=== PATIENT | male | born 1940 | race Caucasian/White ===

== ENCOUNTER 2017-06-13 23:39 | Inpatient (IN) | payer OTHER, MEDICARE ==
[~2017-06-13] VITALS: Ht 193 cm; Wt 123.0 kg
[2017-06-13] MEDS ORDERED: BUDE10.2 (23:56)
[2017-06-13] MEDS ORDERED: IPRA4AER (23:56)
[2017-06-13] MEDS ORDERED: OMEP20CA4 (23:56)
[2017-06-14] LABS: BASOPHILS % (AUTO) 0.4 % (0-1); EOSINOPHILS # (AUTO) 0.2 X10'3 (0-0.9); EOSINOPHILS % (AUTO) 2.2 % (0-6); HEMATOCRIT 40.9 % (42.0-52.0); HEMOGLOBIN 13.9 g/dl (14.0-17.9); LYMPHOCYTES # (AUTO) 1.9 X10'3 (1.1-4.8); LYMPHOCYTES % (AUTO) 21.2 % (21-51); MEAN CORPUSCULAR HEMOGLOBIN 31.4 PG (27.0-31.0); MEAN CORPUSCULAR HGB CONC 33.9 % (33.0-36.5); MEAN CORPUSCULAR VOLUME 92.6 FL (78-98); MEAN PLATELET VOLUME 6.6 FL (7.4-10.4); MONOCYTES # (AUTO) 0.4 X10'3 (0-0.9); MONOCYTES % (AUTO) 4.6 % (2-12); NEUTROPHILS # (AUTO) 6.5 X10'3 (1.8-7.7); NEUTROPHILS % (AUTO) 71.6 % (42-75); PLATELET COUNT 265 X10'3 (140-440); RED BLOOD COUNT 4.42 X10'6 (4.70-6.10); RED CELL DISTRIBUTION WIDTH 15.6 % (11.5-14.5); WHITE BLOOD COUNT 9.1 X10'3 (4.5-11.0)
[2017-06-14 00:24] LABS: ALANINE AMINOTRANSFERASE 21 U/L (12-78); ALBUMIN 3.5 G/DL (3.4-5.0); ALBUMIN/GLOBULIN RATIO 0.8 (1.1-1.5); ALKALINE PHOSPHATASE 90 IU/L (46-116); ANION GAP 12 (8-16); ASPARTATE AMINO TRANSFERASE 18 U/L (10-37); BILIRUBIN,TOTAL 0.5 MG/DL (0.1-1.0); BLOOD UREA NITROGEN 11 MG/DL (7-18); BUN/CREATININE RATIO 9.3 (5.4-32.0); CALCIUM 9.3 MG/DL (8.5-10.1); CHLORIDE 103 MMOL/L (99-107); CREATININE 1.18 MG/DL (0.60-1.10); GLUCOSE 140 MG/DL (70-104); POTASSIUM 4.1 MMOL/L (3.5-5.1); SODIUM 141 MMOL/L (135-145); TOTAL CARBON DIOXIDE 26.3 MMOL/L (24-32); eGFR 60 ML/MIN
[2017-06-14 00:29] LABS: D-DIMER 1.16 MG/L FEU (0-0.50); PARTIAL THROMBOPLASTIN TIME 28 SECONDS (22-32); PROTHROMBIN TIME 10.8 SECONDS (9.0-12.0)
[2017-06-14] MEDS ORDERED: iohexol 350MG/ML 100ml bottle IV ONE (00:57)
[2017-06-14] MEDS ORDERED: furosemide 10 MG/1 ML 10ml inj IV ONE (02:20)
[2017-06-14] MEDS ORDERED: acetaminophen 325mg tablet PO PRN ×2 (03:40)
[2017-06-14] MEDS ORDERED: HYDROcodone/acetaminophen 5mg/325mg tablet PO PRN (03:40)
[2017-06-14] MEDS ORDERED: ondansetron/PF 4mg/2ml inj IV PRN (03:40)
[2017-06-14 04:29] LABS: HEMOGLOBIN A1C 6.1 % (4.5-6.2)
[2017-06-14] MEDS: enoxaparin 60mg/0.6ml syringe SUBCUT SCH ×2 (04:56→20:01)
[2017-06-14] MEDS: pantoprazole 40mg Tablet.DR PO SCH (08:54)
[2017-06-14] MEDS: aspirin 81mg tablet.DR PO SCH (09:16)
[2017-06-14] MEDS: lisinopril 10 MG tablet PO SCH (09:17)
[2017-06-14] MEDS: atorvastatin 20mg tablet PO SCH (09:17)
[2017-06-14] MEDS: furosemide 10 MG/1 ML 10ml inj IV SCH (09:22)
[2017-06-14 15:59] VITALS: BP 131/76
[2017-06-14 18:00] VITALS: BP 152/89
[2017-06-14] MEDS: albuterol 2.5 MG/3 ML nebule NEB PRN (20:00)
[2017-06-14] MEDS ORDERED: furosemide 40mg/4ml inj IV ONE (22:35)
[2017-06-14 23:00] VITALS: BP 158/94
[2017-06-15 06:00] VITALS: BP 139/81
[2017-06-15 06:38] LABS: BASOPHILS % (AUTO) 0.3 % (0-1); EOSINOPHILS # (AUTO) 0.2 X10'3 (0-0.9); EOSINOPHILS % (AUTO) 1.8 % (0-6); HEMATOCRIT 42.6 % (42.0-52.0); HEMOGLOBIN 14.4 g/dl (14.0-17.9); LYMPHOCYTES % (AUTO) 9.4 % (21-51); MEAN CORPUSCULAR HEMOGLOBIN 31.1 PG (27.0-31.0); MEAN CORPUSCULAR HGB CONC 33.8 % (33.0-36.5); MEAN CORPUSCULAR VOLUME 91.9 FL (78-98); MONOCYTES # (AUTO) 0.7 X10'3 (0-0.9); MONOCYTES % (AUTO) 6.4 % (2-12); NEUTROPHILS % (AUTO) 82.1 % (42-75); PLATELET COUNT 288 X10'3 (140-440); RED BLOOD COUNT 4.64 X10'6 (4.70-6.10)
[2017-06-15 06:58] LABS: ALBUMIN 3.7 G/DL (3.4-5.0); ANION GAP 10 (8-16); BLOOD UREA NITROGEN 14 MG/DL (7-18); BUN/CREATININE RATIO 12.1 (5.4-32.0); CALCIUM 9.4 MG/DL (8.5-10.1); CHLORIDE 97 MMOL/L (99-107); CHOL/HDL RATIO 2.8 (0.00-4.99); CHOLESTEROL 155 MG/DL (0-200); CREATININE 1.16 MG/DL (0.60-1.10); GLUCOSE 133 MG/DL (70-104); HDL CHOLESTEROL 55 MG/DL (35-60); LDL CHOLESTEROL 82 MG/DL (50-100); POTASSIUM 4.1 MMOL/L (3.5-5.1); SODIUM 139 MMOL/L (135-145); TOTAL CARBON DIOXIDE 32.1 MMOL/L (24-32); TRIGLYCERIDES 81 MG/DL (20-135); eGFR 61 ML/MIN
[2017-06-15] MEDS: pantoprazole 40mg Tablet.DR PO SCH (07:53)
[2017-06-15] MEDS: lisinopril 10 MG tablet PO SCH (07:54)
[2017-06-15] MEDS: enoxaparin 60mg/0.6ml syringe SUBCUT SCH ×2 (07:54→20:12)
[2017-06-15] MEDS: aspirin 81mg tablet.DR PO SCH (07:54)
[2017-06-15] MEDS: atorvastatin 20mg tablet PO SCH (07:54)
[2017-06-15] MEDS: furosemide 10 MG/1 ML 10ml inj IV SCH (07:54)
[2017-06-15 10:00] VITALS: BP 105/66
[2017-06-15] MEDS ORDERED: lisinopril 5mg tablet PO SCH (13:40)
[2017-06-15] MEDS ORDERED: furosemide 20 MG/2 ML vial IV SCH (13:40)
[2017-06-15] MEDS ORDERED: levoFLOXACIN 500mg tablet PO ONE (14:10)
[2017-06-15] MEDS: metoprolol tartrate 12.5mg (1/2 tablet) PO SCH ×2 (15:19→20:00)
[2017-06-15 18:00] VITALS: BP 107/63
[2017-06-15] MEDS: albuterol 2.5 MG/3 ML nebule NEB PRN (19:51)
[2017-06-15 20:18] VITALS: BP 100/50
[2017-06-15 22:00] VITALS: BP 111/56
[2017-06-16 05:30] LABS: BASOPHILS % (AUTO) 0.4 % (0-1); EOSINOPHILS # (AUTO) 0.3 X10'3 (0-0.9); EOSINOPHILS % (AUTO) 3.7 % (0-6); HEMATOCRIT 39.7 % (42.0-52.0); HEMOGLOBIN 13.6 g/dl (14.0-17.9); LYMPHOCYTES # (AUTO) 1.7 X10'3 (1.1-4.8); LYMPHOCYTES % (AUTO) 23.3 % (21-51); MEAN CORPUSCULAR HEMOGLOBIN 31.2 PG (27.0-31.0); MEAN CORPUSCULAR HGB CONC 34.1 % (33.0-36.5); MEAN CORPUSCULAR VOLUME 91.3 FL (78-98); MONOCYTES # (AUTO) 0.6 X10'3 (0-0.9); MONOCYTES % (AUTO) 7.9 % (2-12); NEUTROPHILS # (AUTO) 4.7 X10'3 (1.8-7.7); NEUTROPHILS % (AUTO) 64.7 % (42-75); PLATELET COUNT 261 X10'3 (140-440); RED BLOOD COUNT 4.35 X10'6 (4.70-6.10); RED CELL DISTRIBUTION WIDTH 15.4 % (11.5-14.5); WHITE BLOOD COUNT 7.3 X10'3 (4.5-11.0)
[2017-06-16 05:57] LABS: ALBUMIN 3.2 G/DL (3.4-5.0); ANION GAP 11 (8-16); BLOOD UREA NITROGEN 21 MG/DL (7-18); BUN/CREATININE RATIO 18.3 (5.4-32.0); CALCIUM 9.5 MG/DL (8.5-10.1); CHLORIDE 98 MMOL/L (99-107); CREATININE 1.15 MG/DL (0.60-1.10); GLUCOSE 121 MG/DL (70-104); POTASSIUM 3.6 MMOL/L (3.5-5.1); SODIUM 138 MMOL/L (135-145); TOTAL CARBON DIOXIDE 29.2 MMOL/L (24-32); eGFR 62 ML/MIN
[2017-06-16 06:00] VITALS: BP 130/60
[2017-06-16] MEDS ORDERED: fluticasone/vilanterol 200mcg/25mcg inhaler IH SCH (08:00)
[2017-06-16] MEDS: furosemide 10 MG/1 ML 10ml inj IV SCH (08:24)
[2017-06-16] MEDS: metoprolol tartrate 12.5mg (1/2 tablet) PO SCH (08:24)
[2017-06-16] MEDS: pantoprazole 40mg Tablet.DR PO SCH (08:24)
[2017-06-16] MEDS: atorvastatin 20mg tablet PO SCH (08:24)
[2017-06-16] MEDS: aspirin 81mg tablet.DR PO SCH (08:25)
[2017-06-16] MEDS: lisinopril 10 MG tablet PO SCH (08:25)
[2017-06-16] MEDS: enoxaparin 60mg/0.6ml syringe SUBCUT SCH (08:25)
[2017-06-16 10:00] VITALS: BP 99/53
[2017-06-16] MEDS ORDERED: LISI10TA4 PO (10:25)
[2017-06-16] MEDS ORDERED: ATOR20TA66 PO (10:25)
[2017-06-16] MEDS ORDERED: ASPI-1071 PO (10:25)
[2017-06-16] MEDS ORDERED: POTA10CA44 PO (10:25)
[2017-06-16] MEDS ORDERED: FURO40TA4 PO (10:25)
[2017-06-16] MEDS ORDERED: METO25TA6 PO (10:25)
== END 2017-06-16 11:15 | disposition home health service (06) | DRG 292 ==
LOC: ER 23:39 → ED HOLD 06-14 03:37 → ORTHO 4S 06-14 15:42
PROVIDERS: ADMIT Family Medicine; ATTEND Family Medicine
PROC: B32T1ZZ Computerized Tomography (CT Scan) of Left Pulmonary Artery using Low Osmolar Contrast (ICD-10-PCS; principal; 2017-06-14)
PROC: B3201ZZ Computerized Tomography (CT Scan) of Thoracic Aorta using Low Osmolar Contrast (ICD-10-PCS; 2017-06-14)
PROC: B32S1ZZ Computerized Tomography (CT Scan) of Right Pulmonary Artery using Low Osmolar Contrast (ICD-10-PCS; 2017-06-14)
DX: I11.0 Hypertensive heart disease with heart failure (principal); I45.2 Bifascicular block; I27.81 Cor pulmonale (chronic); I08.1 Rheumatic disorders of both mitral and tricuspid valves; I50.33 Acute on chronic diastolic (congestive) heart failure; J44.9 Chronic obstructive pulmonary disease, unspecified; E78.5 Hyperlipidemia, unspecified; I25.10 Atherosclerotic heart disease of native coronary artery without angina pectoris; K21.9 Gastro-esophageal reflux disease without esophagitis; L60.2 Onychogryphosis; F17.200 Nicotine dependence, unspecified, uncomplicated; Z79.51 Long term (current) use of inhaled steroids; Z79.899 Other long term (current) drug therapy; Z95.1 Presence of aortocoronary bypass graft
CPT/HCPCS: 36415; 71045; 71275; 80048; 80053; 80061; 83036; 83880; 84484; 85025; 85379; 85610; 85730; 87070; 93306; 93922; 94640; 94760; 96374; 99285; J1650; J1940; Q9967

== ENCOUNTER 2018-05-31 01:14 | Inpatient (IN) | payer MEDICARE, OTHER ==
[~2018-05-31] VITALS: Ht 193 cm; Wt 113.6 kg
[~2018-05-31 01:14] MED LIST: ASPI-1071 PO; ATOR20TA66 PO; BUDE10.2 PO; FURO40TA4 PO; IPRA4AER PO; LISI10TA4 PO; METO25TA6 PO; OMEP20CA4 PO
[2018-05-31] MEDS ORDERED: methylPREDNISolone sod succ 125mg/2ml vial IV ONE (01:50)
[2018-05-31] MEDS ORDERED: levoFLOXACIN-Levaquin 750MG/D5 150 ML IV ONE (01:50)
[2018-05-31] MEDS ORDERED: ipratropium/albuterol 3ml nebule NEB ONE (01:50)
[2018-05-31] MEDS ORDERED: furosemide 40mg/4ml inj IV ONE (01:50)
[2018-05-31 02:06] LABS: ABG BASE EXCESS -1.9 mmol/L (-2.0-3.0); ABG HCO3 19.5 mmol/L (22.0-26.0); ABG PCO2 (T) 27.1 mmHg (35.0-48.0); ABG PO2 (T) 97.9 mmHg (83-108); ALLEN'S TEST Positive; FCOHb 0.7 % (0.5-1.5); FO2Hb 96.3 % (94-100); PATIENT TEMPERATURE 38.3; RESPIRATORY RATE 16 b/min; RESPIRATORY RATE (OBSERVED) 40 b/min; TOTAL HEMOGLOBIN 14.8 G/dl (14.0-18.0)
[2018-05-31 02:19] LABS: BASOPHILS % (AUTO) 0.2 % (0-1); EOSINOPHILS % (AUTO) 0 % (0-6); HEMATOCRIT 42.1 % (42.0-52.0); HEMOGLOBIN 14.1 g/dl (14.0-17.9); LYMPHOCYTES # (AUTO) 0.5 X10'3 (1.1-4.8); LYMPHOCYTES % (AUTO) 3.2 % (21-51); MEAN CORPUSCULAR HEMOGLOBIN 31.8 PG (27.0-31.0); MEAN CORPUSCULAR HGB CONC 33.6 g/dL (33.0-36.5); MEAN CORPUSCULAR VOLUME 94.7 FL (78-98); MEAN PLATELET VOLUME 7.3 FL (7.4-10.4); MONOCYTES # (AUTO) 1.1 X10'3 (0-0.9); MONOCYTES % (AUTO) 6.2 % (2-12); NEUTROPHILS # (AUTO) 15.7 X10'3 (1.8-7.7); NEUTROPHILS % (AUTO) 90.4 % (42-75); PLATELET COUNT 261 X10'3 (140-440); RED BLOOD COUNT 4.45 X10'6 (4.70-6.10); RED CELL DISTRIBUTION WIDTH 14.2 % (11.5-14.5); WHITE BLOOD COUNT 17.3 X10'3 (4.5-11.0)
[2018-05-31 02:28] LABS: ALANINE AMINOTRANSFERASE 29 U/L (12-78); ALBUMIN 2.6 G/DL (3.4-5.0); ALBUMIN/GLOBULIN RATIO 0.5 (1.1-1.5); ALKALINE PHOSPHATASE 211 IU/L (46-116); ANION GAP 16 (8-16); ASPARTATE AMINO TRANSFERASE 40 U/L (10-37); BILIRUBIN,TOTAL 1.1 MG/DL (0.1-1.0); BLOOD UREA NITROGEN 18 MG/DL (7-18); BUN/CREATININE RATIO 12.9 (5.4-32.0); CALCIUM 9.5 MG/DL (8.5-10.1); CHLORIDE 92 MMOL/L (99-107); GLUCOSE 145 MG/DL (70-104); INR 1.1 INR; PARTIAL THROMBOPLASTIN TIME 33 SECONDS (22-32); POTASSIUM 3.6 MMOL/L (3.5-5.1); SODIUM 129 MMOL/L (135-145); TOTAL CARBON DIOXIDE 20.8 MMOL/L (24-32); TOTAL PROTEIN 8.2 G/DL (6.4-8.2); eGFR 49 ML/MIN
[2018-05-31 02:36] LABS: MAGNESIUM 1.9 MG/DL (1.5-2.4)
[2018-05-31] MEDS ORDERED: aspirin 325mg tablet PO ONE (02:40)
[2018-05-31 02:46] LABS: TOTAL CELLS COUNTED 100
[2018-05-31 02:47] LABS: PLATELET ESTIMATE NORMAL
[2018-05-31 02:48] LABS: TOXIC GRANULATION 1+
[2018-05-31] MEDS ORDERED: mag hydrox/Alum hydrox/simeth 30ml oral suspension PO PRN (02:50)
[2018-05-31] MEDS ORDERED: potassium Cl 20 mEq SR tablet PO PRN (02:50)
[2018-05-31] MEDS ORDERED: magnesium hydroxide 30ml (MOM) UD suspension PO PRN (02:50)
[2018-05-31] MEDS ORDERED: acetaminophen 325mg tablet PO PRN ×2 (02:50)
[2018-05-31] MEDS ORDERED: magnesium Cl slow-release 64mg tablet PO PRN (02:50)
[2018-05-31] MEDS ORDERED: ondansetron/PF 4mg/2ml inj IV PRN (02:50)
[2018-05-31] MEDS ORDERED: magnesium 2GM in 50ml NS 50 ML IV PRN (02:50)
[2018-05-31] MEDS ORDERED: magnesium 4gm in 100ml NS 100 ML IV PRN (02:50)
[2018-05-31] MEDS ORDERED: potassium Cl 40MEQ/NS 500ml 500 ML IV PRN ×2 (02:50)
[2018-05-31] MEDS ORDERED: ipratropium/albuterol 3ml nebule NEB PRN (02:55)
[2018-05-31] MEDS: ipratropium/albuterol 3ml nebule NEB SCH ×6 (03:32→23:09)
[2018-05-31 05:39] LABS: GLUCOSE, URINE NEGATIVE (Neg); KETONES,URINE 15 mg/dl (Neg); LEUKOCYTE ESTERASE ,URINE NEGATIVE (Neg); NITRITES, URINE NEGATIVE (Neg); OCCULT BLOOD,URINE MODERATE (Neg); PH,URINE 5.5 (4.8-8.0); PROTEIN,URINE 30 mg/dl (Neg)
[2018-05-31 05:44] LABS: CLARITY,URINE SLIGHTLY CLOUDY (Clear); COLOR,URINE STRAW (Yellow); UA COLLECTION TYPE CLN CATCH MIDSTREAM
--- NOTE | 2018-05-31 05:50 | NUR ---
PT SLEEPING, NO C/O
[2018-05-31 05:51] LABS: BACTERIA,URINE NONE SEEN /HPF (Neg); MUCUS STRANDS NONE SEEN /LPF (Neg); SQUAMOUS EPITHELIAL CELL,UR NONE SEEN /LPF (FEW); TRANSITIONAL EPI CELLS,URINE FEW /HPF; WBC,URINE 0-4 /HPF (0-4)
--- NOTE | 2018-05-31 06:51 | NUR ---
Patient alert and oriented. Patient changed into a hospital gound and skin care was given. Bipap was adujsted and patient given drink of water.
[2018-05-31] MEDS: K and/or MAG REPLACEMENT MC SCH (08:00)
[2018-05-31] MEDS ORDERED: enoxaparin 40mg/0.4ml syringe SQ SCH (08:00)
[2018-05-31] MEDS: furosemide 10 MG/1 ML 10ml inj IV SCH ×2 (09:36→20:27)
[2018-05-31] MEDS: methylPREDNISolone sod succ/PF 40mg inj. IV SCH ×3 (09:36→23:41)
[2018-05-31] MEDS: lactobacillus rhamnosus 10,000 MMU CELLS/CAPSULE PO SCH ×2 (09:37→20:27)
[2018-05-31] MEDS: heparin, porcine 5000 units/ml vial SQ SCH ×3 (09:38→23:42)
--- NOTE | 2018-05-31 10:20 | NUR ---
Dr. Easton down to see pa Addendum: 05/31/18 at [address] Easton here to see patient and asked to take patient off bipap and due a trial of NC. Patient was removed from bipap and placed on 3L nc. Patient is holding his saturation at 94%. Patient eating breakfast.
--- NOTE | 2018-05-31 11:17 | NUR ---
pt was off bipap and placed on 3l nc while eating. pt breathing was labored, pt placed back on bipap.
[2018-05-31] MEDS ORDERED: POTA10TA15 PO (13:17)
[2018-05-31] MEDS ORDERED: FURO40TA4 PO (13:17)
[2018-05-31] MEDS ORDERED: ROSU40TA PO (13:17)
[2018-05-31] MEDS ORDERED: METO-411 PO (13:17)
[2018-05-31] MEDS ORDERED: LISI1TAB11 PO (13:17)
[2018-05-31] MEDS ORDERED: ASPI-611 PO (13:17)
--- NOTE | 2018-05-31 16:40 | NUR ---
Assumed patient care
[2018-05-31 17:00] VITALS: BP 156/74
[2018-05-31 18:18] VITALS: BP 139/73
[2018-06-01] MEDS ORDERED: levoFLOXACIN-Levaquin 750MG/D5 150 ML IV SCH (02:00)
[2018-06-01] MEDS: ipratropium/albuterol 3ml nebule NEB SCH ×6 (03:10→23:36)
[2018-06-01 06:00] VITALS: BP 138/72
[2018-06-01 06:17] LABS: ALBUMIN 2.5 G/DL (3.4-5.0); ANION GAP 14 (8-16); BLOOD UREA NITROGEN 36 MG/DL (7-18); CALCIUM 10.1 MG/DL (8.5-10.1); CHLORIDE 93 MMOL/L (99-107); CREATININE 1.89 MG/DL (0.60-1.10); GLUCOSE 269 MG/DL (70-104); MAGNESIUM 2.4 MG/DL (1.5-2.4); POTASSIUM 3.1 MMOL/L (3.5-5.1); SODIUM 132 MMOL/L (135-145); TOTAL CARBON DIOXIDE 25.2 MMOL/L (24-32); eGFR 35 ML/MIN
[2018-06-01 06:18] LABS: MEAN CORPUSCULAR HGB CONC 33.8 g/dL (33.0-36.5)
[2018-06-01 06:19] LABS: HEMATOCRIT 41.6 % (42.0-52.0); HEMOGLOBIN 14.1 g/dl (14.0-17.9); MEAN CORPUSCULAR HEMOGLOBIN 31.7 PG (27.0-31.0); MEAN CORPUSCULAR VOLUME 93.7 FL (78-98); MEAN PLATELET VOLUME 7.4 FL (7.4-10.4); PLATELET COUNT 290 X10'3 (140-440); RED BLOOD COUNT 4.44 X10'6 (4.70-6.10); RED CELL DISTRIBUTION WIDTH 13.9 % (11.5-14.5); WHITE BLOOD COUNT 19.8 X10'3 (4.5-11.0)
--- NOTE | 2018-06-01 07:01 | NUR ---
Patient in room PCU 3015. I have received report from Erika HOUSE and had the opportunity to ask questions and assume patient care.
[2018-06-01 07:23] LABS: TOTAL CELLS COUNTED 100
[2018-06-01 07:24] LABS: PLATELET ESTIMATE NORMAL; TOXIC GRANULATION 2+; TOXIC VACUOLATION FEW
[2018-06-01] MEDS ORDERED: non-formulary drug (Budesonide/Formoterol Fumarate (Symbicort 160-4.5 Mcg Inhaler) 2 PUFFS PO SCH (08:00)
[2018-06-01] MEDS: K and/or MAG REPLACEMENT MC SCH (08:00)
[2018-06-01] MEDS: budesonide 0.5mg/2ml UD nebule IH SCH ×2 (08:28→19:28)
[2018-06-01] MEDS: potassium chloride 10mEq ER tablet PO SCH (08:59)
[2018-06-01] MEDS: atorvastatin 20mg tablet PO SCH (08:59)
[2018-06-01] MEDS: potassium Cl 20 mEq SR tablet PO PRN ×3 (08:59→20:05)
[2018-06-01] MEDS: HYDROchlorothiazide 12.5mg capsule PO SCH (09:00)
[2018-06-01] MEDS: aspirin 81mg tab.chew PO SCH (09:00)
[2018-06-01] MEDS: lisinopril 20mg tablet PO SCH (09:01)
[2018-06-01] MEDS: lactobacillus rhamnosus 10,000 MMU CELLS/CAPSULE PO SCH ×2 (09:01→20:05)
[2018-06-01] MEDS: furosemide 10 MG/1 ML 10ml inj IV SCH ×2 (09:02→20:05)
[2018-06-01] MEDS: methylPREDNISolone sod succ/PF 40mg inj. IV SCH ×3 (09:02→23:37)
[2018-06-01] MEDS: metoprolol succinate 25mg (24-HOUR) SR. Tablet PO SCH (09:02)
[2018-06-01] MEDS: heparin, porcine 5000 units/ml vial SQ SCH ×3 (09:03→23:38)
[2018-06-01] MEDS: pantoprazole 40mg Tablet.DR PO SCH (09:13)
[2018-06-01 11:00] VITALS: BP 133/67
[2018-06-01] MEDS ORDERED: ipratropium/albuterol 3ml nebule IH SCH (11:00)
[2018-06-01] MEDS ORDERED: albuterol 2.5 MG/3 ML nebule NEB SCH (11:00)
--- NOTE | 2018-06-01 18:27 | NUR ---
Patient in room PCU 3015. I have received report from Elier HOUSE and had the opportunity to ask questions and assume patient care.
--- NOTE | 2018-06-01 18:27 | NUR ---
Problems reprioritized. Patient report given, questions answered & plan of care reviewed with Maggie HOUSE.
[2018-06-01 18:49] VITALS: BP 122/70
[2018-06-01 19:00] VITALS: BP 117/54
[2018-06-01 22:00] VITALS: BP 139/73
[2018-06-02] VITALS (7 sets, daily range): BP systolic 111–153; BP diastolic 51–73
[2018-06-02] MEDS: ipratropium/albuterol 3ml nebule NEB SCH ×6 (02:42→23:25)
--- NOTE | 2018-06-02 02:56 | NUR ---
PAGER ID: [phone] MESSAGE: [id number] Saud 78. 3/ COPD, SOB. 7 beat run of Vtach. 116/58, rate 87, 92% on 1.5L. denies symptoms. Maggie HOUSE 3085 RT in the room prior giving pt breathing treatment. no signs of distress. pt says he feels good and denies any symptoms. will continue to monitor.
--- NOTE | 2018-06-02 06:00 | NUR ---
Problems reprioritized. Patient report given, questions answered & plan of care reviewed with Rosana HOUSE.
--- NOTE | 2018-06-02 06:15 | NUR ---
Problems reprioritized. Patient report given, questions answered & plan of care reviewed with Nadia HOUSE.
[2018-06-02 06:20] LABS: BASOPHILS % (AUTO) 0.2 % (0-1); EOSINOPHILS % (AUTO) 0 % (0-6); HEMATOCRIT 38.2 % (42.0-52.0); HEMOGLOBIN 12.8 g/dl (14.0-17.9); LYMPHOCYTES # (AUTO) 0.8 X10'3 (1.1-4.8); LYMPHOCYTES % (AUTO) 4.5 % (21-51); MEAN CORPUSCULAR HEMOGLOBIN 31.5 PG (27.0-31.0); MEAN CORPUSCULAR HGB CONC 33.6 g/dL (33.0-36.5); MEAN CORPUSCULAR VOLUME 93.8 FL (78-98); MEAN PLATELET VOLUME 7.7 FL (7.4-10.4); MONOCYTES # (AUTO) 0.9 X10'3 (0-0.9); NEUTROPHILS # (AUTO) 15.7 X10'3 (1.8-7.7); NEUTROPHILS % (AUTO) 90.3 % (42-75); PLATELET COUNT 283 X10'3 (140-440); RED BLOOD COUNT 4.07 X10'6 (4.70-6.10); WHITE BLOOD COUNT 17.4 X10'3 (4.5-11.0)
[2018-06-02 06:27] LABS: ALBUMIN 2.3 G/DL (3.4-5.0); ANION GAP 10 (8-16); BLOOD UREA NITROGEN 45 MG/DL (7-18); BUN/CREATININE RATIO 25.4 (5.4-32.0); CALCIUM 9.2 MG/DL (8.5-10.1); CHLORIDE 95 MMOL/L (99-107); CREATININE 1.77 MG/DL (0.60-1.10); GLUCOSE 230 MG/DL (70-104); MAGNESIUM 2.3 MG/DL (1.5-2.4); POTASSIUM 3.5 MMOL/L (3.5-5.1); SODIUM 133 MMOL/L (135-145); TOTAL CARBON DIOXIDE 27.6 MMOL/L (24-32); eGFR 38 ML/MIN
--- NOTE | 2018-06-02 06:45 | NUR ---
Patient in room PCU 3015. I have received report from LACY Serrano and had the opportunity to ask questions and assume patient care.
[2018-06-02] MEDS: K and/or MAG REPLACEMENT MC SCH (06:58)
[2018-06-02] MEDS: budesonide 0.5mg/2ml UD nebule IH SCH ×2 (08:13→19:25)
[2018-06-02] MEDS: furosemide 10 MG/1 ML 10ml inj IV SCH ×2 (08:30→20:04)
[2018-06-02] MEDS: methylPREDNISolone sod succ/PF 40mg inj. IV SCH ×3 (08:30→23:49)
[2018-06-02] MEDS: heparin, porcine 5000 units/ml vial SQ SCH ×3 (08:31→23:51)
[2018-06-02] MEDS: lisinopril 20mg tablet PO SCH (08:32)
[2018-06-02] MEDS: HYDROchlorothiazide 12.5mg capsule PO SCH (08:32)
[2018-06-02] MEDS: potassium chloride 10mEq ER tablet PO SCH (08:32)
[2018-06-02] MEDS: metoprolol succinate 25mg (24-HOUR) SR. Tablet PO SCH (08:32)
[2018-06-02] MEDS: lactobacillus rhamnosus 10,000 MMU CELLS/CAPSULE PO SCH ×2 (08:40→20:04)
[2018-06-02] MEDS: aspirin 81mg tab.chew PO SCH (08:40)
[2018-06-02] MEDS: atorvastatin 20mg tablet PO SCH (08:40)
[2018-06-02] MEDS: pantoprazole 40mg Tablet.DR PO SCH (08:40)
--- NOTE | 2018-06-02 09:00 | NUR ---
AM MEDS WOULD NOT SCAN, MED CHECKS DONE WITH STUDENT NURSE ROBERTO. AGREED WITH ADMINISTRATION.
--- NOTE | 2018-06-02 17:43 | NUR ---
Student documentation: I have reviewed and agree with all interventions, assessments performed and documented by LACY MEJIA.
--- NOTE | 2018-06-02 17:44 | NUR ---
Student Medication Administration: For this medication-pass time frame, all medication were reviewed, dispensed, administered and documented per hospital policy by LACY MEJIA.
--- NOTE | 2018-06-02 18:30 | NUR ---
Patient in room PCU 3015. I have received report from DAY SHIFT RN and had the opportunity to ask questions and assume patient care.
--- NOTE | 2018-06-02 22:00 | NUR ---
Problems reprioritized. Patient report given, questions answered & plan of care reviewed with ROBERT HOUSE.
[2018-06-03] MEDS ORDERED: levoFLOXACIN-Levaquin 750MG/D5 150 ML IV SCH (02:00)
[2018-06-03] MEDS: ipratropium/albuterol 3ml nebule NEB SCH ×6 (03:11→23:21)
[2018-06-03 06:00] VITALS: BP 119/62
[2018-06-03 06:12] LABS: BASOPHILS % (AUTO) 0.2 % (0-1); EOSINOPHILS % (AUTO) 0 % (0-6); HEMOGLOBIN 13.4 g/dl (14.0-17.9); LYMPHOCYTES % (AUTO) 5.4 % (21-51); MEAN CORPUSCULAR HEMOGLOBIN 31.6 PG (27.0-31.0); MEAN CORPUSCULAR HGB CONC 33.5 g/dL (33.0-36.5); MEAN CORPUSCULAR VOLUME 94.3 FL (78-98); MONOCYTES # (AUTO) 0.7 X10'3 (0-0.9); MONOCYTES % (AUTO) 3.9 % (2-12); NEUTROPHILS # (AUTO) 16.7 X10'3 (1.8-7.7); NEUTROPHILS % (AUTO) 90.5 % (42-75); PLATELET COUNT 348 X10'3 (140-440); RED BLOOD COUNT 4.24 X10'6 (4.70-6.10); RED CELL DISTRIBUTION WIDTH 14.3 % (11.5-14.5); WHITE BLOOD COUNT 18.5 X10'3 (4.5-11.0)
--- NOTE | 2018-06-03 06:27 | NUR ---
Patient in room U 3015. I have received report from Eliana HOUSE and had the opportunity to ask questions and assume patient care. Addendum: 06/03/18 at 0627 by Rosana Gutiérrez RN Amended: Links added.
[2018-06-03 06:30] LABS: ALBUMIN 2.5 G/DL (3.4-5.0); ANION GAP 9 (8-16); BLOOD UREA NITROGEN 43 MG/DL (7-18); BUN/CREATININE RATIO 25.1 (5.4-32.0); CALCIUM 9.4 MG/DL (8.5-10.1); CHLORIDE 93 MMOL/L (99-107); CREATININE 1.71 MG/DL (0.60-1.10); GLUCOSE 225 MG/DL (70-104); MAGNESIUM 2.3 MG/DL (1.5-2.4); POTASSIUM 3.8 MMOL/L (3.5-5.1); SODIUM 131 MMOL/L (135-145); TOTAL CARBON DIOXIDE 28.6 MMOL/L (24-32); eGFR 39 ML/MIN
[2018-06-03] MEDS: pantoprazole 40mg Tablet.DR PO SCH (07:22)
[2018-06-03] MEDS: HYDROchlorothiazide 12.5mg capsule PO SCH (07:23)
[2018-06-03] MEDS: metoprolol succinate 25mg (24-HOUR) SR. Tablet PO SCH (07:23)
[2018-06-03] MEDS: atorvastatin 20mg tablet PO SCH (07:23)
[2018-06-03] MEDS: potassium chloride 10mEq ER tablet PO SCH (07:24)
[2018-06-03] MEDS: lisinopril 20mg tablet PO SCH (07:24)
[2018-06-03] MEDS: heparin, porcine 5000 units/ml vial SQ SCH ×2 (07:24→16:15)
[2018-06-03] MEDS: lactobacillus rhamnosus 10,000 MMU CELLS/CAPSULE PO SCH ×2 (07:24→20:00)
[2018-06-03] MEDS: furosemide 10 MG/1 ML 10ml inj IV SCH ×2 (07:25→20:00)
[2018-06-03] MEDS: methylPREDNISolone sod succ/PF 40mg inj. IV SCH ×2 (07:25→16:15)
[2018-06-03] MEDS: aspirin 81mg tab.chew PO SCH (07:26)
[2018-06-03] MEDS: K and/or MAG REPLACEMENT MC SCH (07:36)
[2018-06-03] MEDS: budesonide 0.5mg/2ml UD nebule IH SCH ×2 (08:35→19:12)
--- NOTE | 2018-06-03 10:09 | NUR ---
Pt. has field start PIV to left forearm 18 G that looks clear of s/s infection. However, it has been > 24 hours since admit. RN attempted to insert new PIV into RFA without success. Will leave field start in for now.
--- NOTE | 2018-06-03 10:44 | NUR ---
Pt. watching TV. without signs of distress.
[2018-06-03 11:00] VITALS: BP 133/38
--- NOTE | 2018-06-03 14:03 | NUR ---
Pt. complaining of dry nose. RN added humidification to the 02 via nasal canula.
[2018-06-03 15:00] VITALS: BP 128/65
[2018-06-03 18:00] VITALS: BP 149/67
--- NOTE | 2018-06-03 18:08 | NUR ---
Problems reprioritized. Patient report given, questions answered & plan of care reviewed with Zaria HOUSE.
--- NOTE | 2018-06-03 18:16 | NUR ---
Patient in room PCU 3015. I have received report from Rosana HOUSE and had the opportunity to ask questions and assume patient care.
[2018-06-03 22:00] VITALS: BP 134/66
[2018-06-04] MEDS: heparin, porcine 5000 units/ml vial SQ SCH ×3 (00:24→16:06)
[2018-06-04] MEDS: methylPREDNISolone sod succ/PF 40mg inj. IV SCH ×3 (00:24→16:05)
[2018-06-04] MEDS: piperacillin/tazo 3.375gm/50ml 50 ML IV SCH ×3 (00:24→16:05)
[2018-06-04 02:00] VITALS: BP 153/65
[2018-06-04] MEDS: ipratropium/albuterol 3ml nebule NEB SCH ×6 (02:59→23:57)
[2018-06-04 05:53] LABS: BASOPHILS % (AUTO) 0.1 % (0-1); EOSINOPHILS % (AUTO) 0 % (0-6); HEMATOCRIT 39.8 % (42.0-52.0); HEMOGLOBIN 13.3 g/dl (14.0-17.9); LYMPHOCYTES % (AUTO) 5.9 % (21-51); MEAN CORPUSCULAR HEMOGLOBIN 31.4 PG (27.0-31.0); MEAN CORPUSCULAR HGB CONC 33.3 g/dL (33.0-36.5); MEAN CORPUSCULAR VOLUME 94.2 FL (78-98); MEAN PLATELET VOLUME 7.8 FL (7.4-10.4); MONOCYTES # (AUTO) 0.6 X10'3 (0-0.9); MONOCYTES % (AUTO) 3.3 % (2-12); NEUTROPHILS # (AUTO) 15.3 X10'3 (1.8-7.7); NEUTROPHILS % (AUTO) 90.7 % (42-75); PLATELET COUNT 332 X10'3 (140-440); RED BLOOD COUNT 4.23 X10'6 (4.70-6.10); RED CELL DISTRIBUTION WIDTH 14.1 % (11.5-14.5); WHITE BLOOD COUNT 16.9 X10'3 (4.5-11.0)
[2018-06-04 06:04] LABS: ALBUMIN 2.4 G/DL (3.4-5.0); ANION GAP 9 (8-16); BLOOD UREA NITROGEN 47 MG/DL (7-18); BUN/CREATININE RATIO 22.9 (5.4-32.0); CALCIUM 9.3 MG/DL (8.5-10.1); CHLORIDE 93 MMOL/L (99-107); CREATININE 2.05 MG/DL (0.60-1.10); GLUCOSE 232 MG/DL (70-104); MAGNESIUM 2.3 MG/DL (1.5-2.4); SODIUM 131 MMOL/L (135-145); TOTAL CARBON DIOXIDE 29.2 MMOL/L (24-32); eGFR 32 ML/MIN
--- NOTE | 2018-06-04 06:04 | NUR ---
Problems reprioritized. Patient report given, questions answered & plan of care reviewed with Maxwell hernandez.
[2018-06-04 06:05] LABS: POTASSIUM 4.4 MMOL/L (3.5-5.1)
[2018-06-04] MEDS: budesonide 0.5mg/2ml UD nebule IH SCH ×2 (07:18→20:07)
[2018-06-04 07:21] VITALS: BP 132/59
[2018-06-04] MEDS: metoprolol succinate 25mg (24-HOUR) SR. Tablet PO SCH (07:28)
[2018-06-04] MEDS: pantoprazole 40mg Tablet.DR PO SCH (07:28)
[2018-06-04] MEDS: atorvastatin 20mg tablet PO SCH (07:28)
[2018-06-04] MEDS: potassium chloride 10mEq ER tablet PO SCH (07:28)
[2018-06-04] MEDS: lactobacillus rhamnosus 10,000 MMU CELLS/CAPSULE PO SCH ×2 (07:28→19:50)
[2018-06-04] MEDS: furosemide 40mg/4ml inj IV SCH ×2 (07:29→19:50)
[2018-06-04] MEDS: lisinopril 20mg tablet PO SCH (07:33)
[2018-06-04] MEDS: HYDROchlorothiazide 12.5mg capsule PO SCH (07:34)
[2018-06-04] MEDS: aspirin 81mg tab.chew PO SCH (07:37)
[2018-06-04] MEDS: K and/or MAG REPLACEMENT MC SCH (07:42)
[2018-06-04 07:55] LABS: TOTAL CELLS COUNTED 100
[2018-06-04 07:56] LABS: PLATELET ESTIMATE NORMAL
[2018-06-04 11:00] VITALS: BP 107/56
[2018-06-04 15:00] VITALS: BP 131/59
--- NOTE | 2018-06-04 16:56 | NUR ---
Pt. c/o dry, itchy throat. No redness, bumps or swelling observed. Info. given to Dr. Simmons. Order received for throat lozenges for pt.
[2018-06-04 18:00] VITALS: BP 143/65
--- NOTE | 2018-06-04 18:11 | NUR ---
Problems reprioritized. Patient report given, questions answered & plan of care reviewed with Zaria HOUSE. Addendum: 06/04/18 at 1811 by Rosana Gutiérrez RN Amended: Links added.
--- NOTE | 2018-06-04 18:33 | NUR ---
Patient in room PCU 3015. I have received report from Rosana HOUSE and had the opportunity to ask questions and assume patient care.
[2018-06-04] MEDS ORDERED: levoFLOXACIN-Levaquin 750MG/D5 150 ML IV SCH (18:43)
[2018-06-04] MEDS: benzocaine/menthol oral lozeng 1 EACH BOX MM PRN (19:51)
[2018-06-04 22:00] VITALS: BP 137/59
[2018-06-05] MEDS: piperacillin/tazo 3.375gm/50ml 50 ML IV SCH ×2 (00:07→08:22)
[2018-06-05] MEDS: methylPREDNISolone sod succ/PF 40mg inj. IV SCH ×2 (00:08→08:22)
[2018-06-05] MEDS: heparin, porcine 5000 units/ml vial SQ SCH ×2 (00:08→08:42)
[2018-06-05 02:00] VITALS: BP 129/61
[2018-06-05] MEDS: ipratropium/albuterol 3ml nebule NEB SCH ×3 (03:15→11:28)
[2018-06-05] MEDS ORDERED: levoFLOXACIN-Levaquin 750MG/D5 150 ML IV SCH (04:00)
[2018-06-05 05:45] LABS: BASOPHILS % (AUTO) 0.1 % (0-1); EOSINOPHILS % (AUTO) 0 % (0-6); HEMATOCRIT 41.3 % (42.0-52.0); HEMOGLOBIN 13.8 g/dl (14.0-17.9); LYMPHOCYTES # (AUTO) 0.9 X10'3 (1.1-4.8); LYMPHOCYTES % (AUTO) 5.4 % (21-51); MEAN CORPUSCULAR HEMOGLOBIN 31.7 PG (27.0-31.0); MEAN CORPUSCULAR HGB CONC 33.5 g/dL (33.0-36.5); MEAN CORPUSCULAR VOLUME 94.4 FL (78-98); MEAN PLATELET VOLUME 7.7 FL (7.4-10.4); MONOCYTES # (AUTO) 0.7 X10'3 (0-0.9); MONOCYTES % (AUTO) 3.8 % (2-12); NEUTROPHILS # (AUTO) 15.8 X10'3 (1.8-7.7); NEUTROPHILS % (AUTO) 90.7 % (42-75); PLATELET COUNT 382 X10'3 (140-440); RED BLOOD COUNT 4.37 X10'6 (4.70-6.10); RED CELL DISTRIBUTION WIDTH 14.5 % (11.5-14.5); WHITE BLOOD COUNT 17.4 X10'3 (4.5-11.0)
[2018-06-05 05:50] LABS: ALBUMIN 2.5 G/DL (3.4-5.0); ANION GAP 8 (8-16); BLOOD UREA NITROGEN 53 MG/DL (7-18); BUN/CREATININE RATIO 26.4 (5.4-32.0); CALCIUM 9.4 MG/DL (8.5-10.1); CHLORIDE 93 MMOL/L (99-107); CREATININE 2.01 MG/DL (0.60-1.10); GLUCOSE 252 MG/DL (70-104); MAGNESIUM 2.4 MG/DL (1.5-2.4); POTASSIUM 4.4 MMOL/L (3.5-5.1); SODIUM 130 MMOL/L (135-145); TOTAL CARBON DIOXIDE 29.5 MMOL/L (24-32); eGFR 32 ML/MIN
--- NOTE | 2018-06-05 06:18 | NUR ---
Problems reprioritized. Patient report given, questions answered & plan of care reviewed with Jacquelin HOUSE.
--- NOTE | 2018-06-05 06:21 | NUR ---
Patient in room PCU 3015. I have received report from LACY Enciso and had the opportunity to ask questions and assume patient care.
[2018-06-05 07:00] VITALS: BP 126/67
[2018-06-05] MEDS: budesonide 0.5mg/2ml UD nebule IH SCH (07:21)
[2018-06-05] MEDS: K and/or MAG REPLACEMENT MC SCH (08:00)
[2018-06-05 08:15] VITALS: BP 117/60
[2018-06-05] MEDS: lactobacillus rhamnosus 10,000 MMU CELLS/CAPSULE PO SCH (08:19)
[2018-06-05] MEDS: lisinopril 20mg tablet PO SCH (08:19)
[2018-06-05] MEDS: pantoprazole 40mg Tablet.DR PO SCH (08:19)
[2018-06-05] MEDS: potassium chloride 10mEq ER tablet PO SCH (08:19)
[2018-06-05] MEDS: atorvastatin 20mg tablet PO SCH (08:20)
[2018-06-05] MEDS: HYDROchlorothiazide 12.5mg capsule PO SCH (08:20)
[2018-06-05] MEDS: aspirin 81mg tab.chew PO SCH (08:20)
[2018-06-05] MEDS: metoprolol succinate 25mg (24-HOUR) SR. Tablet PO SCH (08:21)
[2018-06-05] MEDS: furosemide 40mg/4ml inj IV SCH (08:22)
[2018-06-05] MEDS: benzocaine/menthol oral lozeng 1 EACH BOX MM PRN (08:23)
[2018-06-05 11:00] VITALS: BP 125/62
[2018-06-05] MEDS ORDERED: LACT1CAP26 PO (11:28)
[2018-06-05] MEDS ORDERED: AMOX-419 PO (11:28)
[2018-06-05] MEDS ORDERED: PRED10TA23 PO (11:28)
[2018-06-05] MEDS ORDERED: LEVO750T46 PO (11:33)
--- NOTE | 2018-06-05 14:30 | NUR ---
Discharge instructions, including medication information, S&S worsening condition, [facility] Pt and significant other had opportunity to ask questions. IV removed, cannula intact. ID band removed. Tele box removed & returned to receptionist telephone operator. All pt belongings gathered up and sent with significant other. [facility] bedside delivery provided new prescriptions. Pt transported down to lobby to via wheelchair. Pt ambulated independently without difficulty in to chair in lobby to wait for taxicab out of the weather.
== END 2018-06-05 14:30 | disposition home health service (06) | DRG 871 ==
LOC: ER 01:14 → ED HOLD 02:48 → PCU 3S 16:54
PROVIDERS: ADMIT Hospitalist; ATTEND Family Medicine
PROC: 5A09357 Assistance with Respiratory Ventilation, Less than 24 Consecutive Hours, Continuous Positive Airway Pressure (ICD-10-PCS; principal; 2018-05-31)
DX: A41.9 Sepsis, unspecified organism (principal); I50.33 Acute on chronic diastolic (congestive) heart failure; I21.A1 Myocardial infarction type 2; J96.21 Acute and chronic respiratory failure with hypoxia; J69.0 Pneumonitis due to inhalation of food and vomit; J44.1 Chronic obstructive pulmonary disease with (acute) exacerbation; I13.0 Hypertensive heart and chronic kidney disease with heart failure and stage 1 through stage 4 chronic kidney disease, or unspecified chronic kidney disease; N17.9 Acute kidney failure, unspecified; E87.6 Hypokalemia; J20.9 Acute bronchitis, unspecified; E78.5 Hyperlipidemia, unspecified; N18.3 Chronic kidney disease, stage 3 (moderate); Z95.1 Presence of aortocoronary bypass graft; Z79.51 Long term (current) use of inhaled steroids; Z79.82 Long term (current) use of aspirin; Z79.899 Other long term (current) drug therapy; Z87.891 Personal history of nicotine dependence
CPT/HCPCS: 36415; 36600; 71045; 80048; 80053; 81001; 82803; 83605; 83735; 83880; 84145; 84484; 85018; 85025; 85610; 85730; 87040; 87070; 93005; 93306; 94640; 94660; 94760; 96365; 96375; 97116; 97162; 99285; G0378; J1644; J1940; J1956; J2543; J2920; J2930; J7626

== ENCOUNTER 2019-04-10 02:41 | Inpatient (IN) | payer MEDICARE, OTHER ==
[2019-04-10] VITALS (10 sets, daily range): BP systolic 115–173; BP diastolic 53–86
[~2019-04-10] VITALS: Ht 193 cm; Wt 107.1 kg
[~2019-04-10 02:41] MED LIST changes: -ASPI-1071 PO; +ASPI-611 PO; -ATOR20TA66 PO; -LISI10TA4 PO; +LISI1TAB28 PO; +METO-411 PO; -METO25TA6 PO; +POTA10TA15 PO; +ROSU40TA PO
[2019-04-10 03:12] LABS: BASOPHILS # (AUTO) 0.1 X10'3 (0-0.2); BASOPHILS % (AUTO) 1.1 % (0-1); EOSINOPHILS # (AUTO) 0.1 X10'3 (0-0.9); EOSINOPHILS % (AUTO) 1.7 % (0-6); HEMATOCRIT 41.5 % (42.0-52.0); HEMOGLOBIN 14.2 g/dl (14.0-17.9); LYMPHOCYTES % (AUTO) 24.4 % (21-51); MEAN CORPUSCULAR HEMOGLOBIN 31.6 PG (27.0-31.0); MEAN CORPUSCULAR HGB CONC 34.3 g/dL (33.0-36.5); MEAN CORPUSCULAR VOLUME 92.2 FL (78-98); MEAN PLATELET VOLUME 7.4 FL (7.4-10.4); MONOCYTES # (AUTO) 0.5 X10'3 (0-0.9); MONOCYTES % (AUTO) 6.2 % (2-12); NEUTROPHILS # (AUTO) 5.4 X10'3 (1.8-7.7); NEUTROPHILS % (AUTO) 66.6 % (42-75); PLATELET COUNT 282 X10'3 (140-440); RED CELL DISTRIBUTION WIDTH 13.9 % (11.5-14.5); WHITE BLOOD COUNT 8.1 X10'3 (4.5-11.0)
[2019-04-10 03:23] LABS: ALANINE AMINOTRANSFERASE 13 U/L (12-78); ALBUMIN 3.4 G/DL (3.4-5.0); ALBUMIN/GLOBULIN RATIO 0.8 (1.1-1.5); ALKALINE PHOSPHATASE 87 IU/L (46-116); ANION GAP 6 (8-16); ASPARTATE AMINO TRANSFERASE 16 U/L (10-37); BILIRUBIN,TOTAL 0.3 MG/DL (0.1-1.0); BLOOD UREA NITROGEN 20 MG/DL (7-18); BUN/CREATININE RATIO 14.5 (5.4-32.0); CALCIUM 9.4 MG/DL (8.5-10.1); CHLORIDE 102 MMOL/L (99-107); CREATININE 1.38 MG/DL (0.60-1.10); GLUCOSE 162 MG/DL (70-104); POTASSIUM 3.6 MMOL/L (3.5-5.1); SODIUM 139 MMOL/L (135-145); TOTAL CARBON DIOXIDE 30.7 MMOL/L (24-32); TOTAL PROTEIN 7.6 G/DL (6.4-8.2); eGFR 50 ML/MIN
[2019-04-10] MEDS ORDERED: NITR0.4T51 SL (05:12)
--- NOTE | 2019-04-10 05:29 | NUR ---
I ASKED DR ROSENBERG IF HE WAS AWARE OF THE PATIENT'S TROPONIN. HE SAID YES, AND THAT HE ISN'T CONCERNED BECAUSE THE PATIENT WAS JUST HERE AND HAD A NEGATIVE STRESS TEST AND CAN GO HOME ON ASPIRIN.
[2019-04-10] MEDS ORDERED: heparin 25,000 UNIT/250ml bag 250 ML IV SCH (06:14)
[2019-04-10] MEDS ORDERED: heparin 10,000 units/1 ML INJ IV ONE (06:15)
[2019-04-10] MEDS ORDERED: heparin 10,000 units/1 ML INJ IV PRN (06:15)
[2019-04-10] MEDS ORDERED: normal saline 1000ml 1,000 ML IV SCH ×2 (06:39→15:30)
[2019-04-10] MEDS ORDERED: magnesium 4gm in 100ml NS 100 ML IV PRN ×2 (06:40→16:45)
[2019-04-10] MEDS ORDERED: mag hydrox/Alum hydrox/simeth 30ml oral suspension PO PRN (06:40)
[2019-04-10] MEDS ORDERED: potassium CL 10mEq/100ml bag 100 ML IV PRN ×2 (06:40)
[2019-04-10] MEDS ORDERED: magnesium Cl slow-release 64mg tablet PO PRN (06:40)
[2019-04-10] MEDS ORDERED: potassium Cl 20 mEq SR tablet PO PRN ×3 (06:40→16:45)
[2019-04-10] MEDS ORDERED: magnesium hydroxide 30ml (MOM) UD suspension PO PRN (06:40)
[2019-04-10] MEDS ORDERED: acetaminophen 325mg tablet PO PRN (06:40)
[2019-04-10] MEDS ORDERED: magnesium 2GM in 50ml NS 50 ML IV PRN ×2 (06:40→16:45)
[2019-04-10] MEDS ORDERED: tirofiban 5mg in NS 100mL 100 ML IV SCH ×2 (07:35→11:00)
[2019-04-10 07:45] LABS: PARTIAL THROMBOPLASTIN TIME > 139 SECONDS (22-32)
--- NOTE | 2019-04-10 07:50 | NUR ---
Patient in room MED 316. I have received report from Rich MCCARTHY RN and had the opportunity to ask questions and assume patient care.
[2019-04-10] MEDS ORDERED: non-formulary drug (Potassium Chloride 1 TAB) PO SCH (08:00)
[2019-04-10] MEDS ORDERED: non-formulary drug (Budesonide/Formoterol Fumarate (Symbicort 160-4.5 Mcg Inhaler) 2 PUFFS PO SCH (08:00)
[2019-04-10] MEDS: K and/or MAG REPLACEMENT MC SCH ×2 (08:00→20:00)
[2019-04-10] MEDS ORDERED: aspirin 81mg tablet.DR PO SCH (08:00)
[2019-04-10] MEDS ORDERED: nitroGLYCERIN-Tridil 50MG/D5W 250 ML IV SCH ×2 (09:50→15:33)
[2019-04-10] MEDS: atorvastatin 10mg tablet PO SCH (09:54)
[2019-04-10] MEDS: aspirin 81mg tablet.DR PO SCH (09:59)
[2019-04-10] MEDS: furosemide 40mg tablet PO SCH (09:59)
[2019-04-10] MEDS: metoprolol succinate 25mg (24-HOUR) SR. Tablet PO SCH (10:02)
[2019-04-10] MEDS: ondansetron/PF 4mg/2ml inj IV PRN ×2 (10:07→21:26)
[2019-04-10] MEDS ORDERED: morphine 2 MG/ML inj. syringe IV PRN (10:20)
--- NOTE | 2019-04-10 10:55 | NUR ---
316, Saud I need an order put back in for aggristat I cannot pull it out of [facility] or get it verified by pharmacy since the ER marked it complete. FYI pt pain is gone BP 172/89 Thank You Eliana [phone]
--- NOTE | 2019-04-10 11:30 | NUR ---
Pt had CP 7/10 and L arm pain 9/10. Dr Fernandez was in the room BP was also very elevated as well. Dr ordered Nitro drip. Started. Gave pt Zofran for nausea which was effective. Gave pt Morphine which was effective. VSS at this time nos/s of distress pt awaiting to go to Computer Hardware Technician.
[2019-04-10 12:58] LABS: PARTIAL THROMBOPLASTIN TIME 50 SECONDS (22-32)
[2019-04-10] MEDS ORDERED: LIDOcaine 1% (10mg/ml)w/preservative injection 20ml MDV ONE (13:38)
[2019-04-10] MEDS ORDERED: iohexol 350MG/ML 100ml bottle IV ONE ×2 (13:38→16:55)
[2019-04-10] MEDS ORDERED: midazolam 2 mg/2 ml injection ONE (13:38)
[2019-04-10] MEDS ORDERED: fentaNYL/PF 50MCG/1 ML 2ML syringe ONE (13:38)
[2019-04-10] MEDS ORDERED: iohexol 350 MG/ML 50ML vial IV ONE ×2 (13:38→14:23)
[2019-04-10] MEDS ORDERED: albuterol 2.5 MG/3 ML nebule NEB SCH (14:00)
[2019-04-10] MEDS ORDERED: furosemide 40mg/4ml inj IV ONE (15:30)
[2019-04-10] MEDS ORDERED: HYDROcodone/acetaminophen 10/325mg tab PO PRN (16:00)
[2019-04-10] MEDS ORDERED: proCHLORperazine 10 MG/2 ml inj IV PRN (16:00)
[2019-04-10] MEDS ORDERED: morphine 10mg/ml inj. IV PRN (16:00)
[2019-04-10] MEDS ORDERED: cyclobenzaprine 10mg tablet PO PRN (16:00)
[2019-04-10] MEDS: tirofiban 5mg in NS 100mL 100 ML IV SCH ×2 (16:17→20:04)
[2019-04-10] MEDS ORDERED: Insulin Reg/NS 100units/100mL 100 ML IV SCH (16:43)
[2019-04-10] MEDS ORDERED: MALTODEXTRIN/FRUCTOSE 0.68 KCAL/ML LIQUID 296ML BOTTLE PO ONE (16:45)
[2019-04-10] MEDS ORDERED: potassium Cl 20mEq/100mL bag 100 ML IV PRN (16:45)
[2019-04-10] MEDS ORDERED: gabapentin 400mg capsule PO ONE (16:45)
[2019-04-10] MEDS ORDERED: cefazolin/dext.iso 2gm/50ml 50 ML IV ONE (16:45)
[2019-04-10] MEDS ORDERED: insulin glargine (Lantus) pen - multi-dose SQ PRN (16:45)
[2019-04-10] MEDS ORDERED: vancomycin/NS 1 GM ADD-VANTAGE 250 ML IV ONE (16:45)
[2019-04-10] MEDS ORDERED: hydrALAZINE 20mg/ml inj. IV PRN (16:45)
[2019-04-10] MEDS ORDERED: MESSAGE TO NURSING PO ONE ×4 (16:45)
[2019-04-10] MEDS ORDERED: dextrose 50%-water 50ml dispensing syringe IV PRN (16:45)
[2019-04-10] MEDS: HYDROcodone/acetaminophen 10/325mg tab PO PRN ×2 (17:06→21:30)
[2019-04-10] MEDS ORDERED: LISI-600 PO (17:20)
--- NOTE | 2019-04-10 18:20 | NUR ---
Patient in room ICU 2045. I have received report from LACY Yoon and had the opportunity to ask questions and assume patient care.
--- NOTE | 2019-04-10 18:58 | NUR ---
Change of shift. Patient assessed at bedside with osvaldo house, as well as Little Palencia RN. Groin check completed. Addendum: 04/11/19 at 0837 by Car Jarrell RN during change of shift, PM beverage hostLittle HOUSE, at bedside with osvaldo HOUSE. Groin check completed with both present and questions answered. Rns aware of current drip settings, and nitro, heparin, aggrastat still running at shift change per EMAR. Asked beverage host to review all new orders from CV surgery to verify all is in correctly. Paged pharmacy x3 to verify they have noted all new med orders and med reminder orders, and requested they time them all for the appropriate time. Pharmacist stated they will adjust the orders correctly. Little Palencia RN, notified of my request to pharmacy and asked to make sure all crosses over to emar correctly.
[2019-04-10] MEDS: mupirocin 2% nasal ointment 1gm UD NS SCH (19:18)
[2019-04-10] MEDS: metoprolol tartrate 12.5mg (1/2 tablet) PO SCH (19:19)
[2019-04-10] MEDS: docusate sod 100mg capsule PO SCH (19:19)
--- NOTE | 2019-04-10 19:40 | NUR ---
resource nurse watching this patient. patient rings out c/o pain 7/10 right lower back worse than left lower back. i observed b/l lower back sites - no discolorations either side, soft b/l, patient tells me he does have hx of lower back pain at home and uses a brace. morphine 2 mg given for pain and repositioned in reverse trendelenburg. when primary nurse returned - i updated her (LACY Turner) with the pain issue and that i gave morphine 2 mg iv. Per LACY Turner - this is known to MD regarding hx back pain. Patient does not have issue with urinations. Also no active bleeding at right groin site and that site also is soft. no hematoma.
[2019-04-10] MEDS: morphine 4 MG/ML inj SYRINge IV PRN (19:47)
[2019-04-10 20:00] LABS: ABG BASE EXCESS 1.9 mmol/L (-2.0-3.0); ABG HCO3 27.7 mmol/L (22.0-26.0); ABG OXYGEN SATURATION 95.8 % (95-98); ABG PCO2 (T) 45.9 mmHg (35.0-45.0); ABG PH (T) 7.395 (7.350-7.450); ALLEN'S TEST NEGATIVE; FCOHb 0.5 % (0.5-1.5); FLOW 3 L/min; FO2Hb 95.3 % (94-100); PATIENT TEMPERATURE 36.1; TOTAL HEMOGLOBIN 15.1 G/dl (14.0-17.9)
[2019-04-10] MEDS: budesonide 0.5mg/2ml UD nebule IH SCH (20:17)
[2019-04-10] MEDS: albuterol 2.5 MG/3 ML nebule NEB SCH (20:17)
[2019-04-10 22:05] LABS: MAGNESIUM 1.8 MG/DL (1.5-2.4)
[2019-04-10] MEDS ORDERED: morphine 4 MG/ML inj SYRINge IM ONE (22:40)
[2019-04-10] MEDS ORDERED: morphine 4 MG/ML inj SYRINge IV ONE (22:45)
[2019-04-10 22:52] LABS: CLARITY,URINE CLEAR (Clear); COLOR,URINE YELLOW (Yellow); GLUCOSE, URINE NEGATIVE (Neg); KETONES,URINE NEGATIVE (Neg); LEUKOCYTE ESTERASE ,URINE NEGATIVE (Neg); NITRITES, URINE NEGATIVE (Neg); OCCULT BLOOD,URINE NEGATIVE (Neg); PH,URINE 6.5 (4.8-8.0); PROTEIN,URINE NEGATIVE (Neg); UROBILINOGEN,URINE 0.2 E.U/dL (0.2-1.0)
[2019-04-10 22:53] LABS: BASOPHILS # (AUTO) 0.1 X10'3 (0-0.2); BASOPHILS % (AUTO) 0.5 % (0-1); EOSINOPHILS # (AUTO) 0.1 X10'3 (0-0.9); EOSINOPHILS % (AUTO) 0.4 % (0-6); HEMATOCRIT 40.4 % (42.0-52.0); HEMOGLOBIN 13.9 g/dl (14.0-17.9); LYMPHOCYTES # (AUTO) 0.9 X10'3 (1.1-4.8); LYMPHOCYTES % (AUTO) 6.8 % (21-51); MEAN CORPUSCULAR HEMOGLOBIN 31.5 PG (27.0-31.0); MEAN CORPUSCULAR HGB CONC 34.4 g/dL (33.0-36.5); MEAN CORPUSCULAR VOLUME 91.7 FL (78-98); MEAN PLATELET VOLUME 7.4 FL (7.4-10.4); MONOCYTES # (AUTO) 0.9 X10'3 (0-0.9); MONOCYTES % (AUTO) 6.6 % (2-12); NEUTROPHILS % (AUTO) 85.7 % (42-75); PLATELET COUNT 292 X10'3 (140-440); RED CELL DISTRIBUTION WIDTH 14.2 % (11.5-14.5); WHITE BLOOD COUNT 12.8 X10'3 (4.5-11.0)
[2019-04-10 23:04] LABS: UA COLLECTION TYPE URINAL
--- NOTE | 2019-04-10 23:24 | NUR ---
Patient c/o of worsening right lower back and right groin pain where the art line is. There was still 3 hours before I can give the next A[place]on and 2 hours before I can give the next morphine. I called the charge nurse who called MD. MD came to check on the patient and asked me when the pain meds were last given. I told him, and he replied with a new order for Morphine 4mg IV give once. No new bleeding or signs of hematoma was seen. The skin tissue area around the art line was soft. Addendum: 04/11/19 at 0222 by Temitope Jensen RN CBC was also drawn to check H&H to help rule out retroperitoneal bleeding concerns for c/o worsening back pain. Results were: Hbg 13.9, and HCT 40.4
[2019-04-11] VITALS (24 sets, daily range): BP systolic 109–156; BP diastolic 48–77
[2019-04-11] MEDS: tirofiban 5mg in NS 100mL 100 ML IV SCH ×2 (01:04→05:54)
[2019-04-11] MEDS: morphine 4 MG/ML inj SYRINge IV PRN ×8 (01:18→23:03)
[2019-04-11 02:41] LABS: BASOPHILS # (AUTO) 0.1 X10'3 (0-0.2); BASOPHILS % (AUTO) 0.4 % (0-1); EOSINOPHILS % (AUTO) 0 % (0-6); HEMATOCRIT 40.5 % (42.0-52.0); HEMOGLOBIN 13.7 g/dl (14.0-17.9); LYMPHOCYTES # (AUTO) 0.6 X10'3 (1.1-4.8); LYMPHOCYTES % (AUTO) 5.1 % (21-51); MEAN CORPUSCULAR HEMOGLOBIN 30.9 PG (27.0-31.0); MEAN CORPUSCULAR HGB CONC 33.9 g/dL (33.0-36.5); MEAN CORPUSCULAR VOLUME 91.3 FL (78-98); MEAN PLATELET VOLUME 7.9 FL (7.4-10.4); MONOCYTES # (AUTO) 0.4 X10'3 (0-0.9); MONOCYTES % (AUTO) 3.8 % (2-12); NEUTROPHILS # (AUTO) 10.7 X10'3 (1.8-7.7); NEUTROPHILS % (AUTO) 90.7 % (42-75); PLATELET COUNT 295 X10'3 (140-440); RED BLOOD COUNT 4.44 X10'6 (4.70-6.10); RED CELL DISTRIBUTION WIDTH 14.3 % (11.5-14.5); WHITE BLOOD COUNT 11.8 X10'3 (4.5-11.0)
[2019-04-11 03:02] LABS: ALANINE AMINOTRANSFERASE 16 U/L (12-78); ALBUMIN 3.4 G/DL (3.4-5.0); ALBUMIN/GLOBULIN RATIO 0.9 (1.1-1.5); ALKALINE PHOSPHATASE 84 IU/L (46-116); ANION GAP 9 (8-16); ASPARTATE AMINO TRANSFERASE 36 U/L (10-37); BILIRUBIN,TOTAL 0.3 MG/DL (0.1-1.0); BLOOD UREA NITROGEN 16 MG/DL (7-18); CALCIUM 9.1 MG/DL (8.5-10.1); CHLORIDE 102 MMOL/L (99-107); CREATININE 1.33 MG/DL (0.60-1.10); GLUCOSE 166 MG/DL (70-104); MAGNESIUM 1.8 MG/DL (1.5-2.4); POTASSIUM 4.1 MMOL/L (3.5-5.1); SODIUM 141 MMOL/L (135-145); TOTAL CARBON DIOXIDE 29.7 MMOL/L (24-32); TOTAL PROTEIN 7.4 G/DL (6.4-8.2); eGFR 52 ML/MIN
[2019-04-11] MEDS: albuterol 2.5 MG/3 ML nebule NEB SCH ×2 (03:32→07:10)
--- NOTE | 2019-04-11 04:27 | NUR ---
04/11 Weight differential from 04/10: Patient weight in ICU [place] bed is 97.8 kg which is a big difference from the last recorded weight of 113 kg that was stated per patient.
[2019-04-11] MEDS ORDERED: ROPIVAcaine 0.5% (5mg/ml) 30ml vial ONE (05:17)
[2019-04-11] MEDS ORDERED: gabapentin 400mg capsule PO ONE (06:00)
[2019-04-11] MEDS ORDERED: famotidine 20mg tablet PO ONE (06:00)
[2019-04-11] MEDS ORDERED: vancomycin/NS 1 GM ADD-VANTAGE 250 ML IV ONE (06:00)
[2019-04-11] MEDS ORDERED: cefazolin/dext.iso 2gm/100ml 100 ML IV ONE (06:00)
[2019-04-11] MEDS ORDERED: ringers solution, lacted 1,000 ML IV ONE (06:00)
[2019-04-11] MEDS ORDERED: MALTODEXTRIN/FRUCTOSE 0.68 KCAL/ML LIQUID 296ML BOTTLE PO ONE (06:00)
[2019-04-11] MEDS ORDERED: LORazepam 2 mg/ml vial IV ONE (06:00)
[2019-04-11] MEDS ORDERED: cefazolin/dext.iso 2gm/50ml 50 ML IV ONE (06:00)
[2019-04-11] MEDS ORDERED: Insulin Reg/NS 100units/100mL 100 ML IV SCH ×2 (06:00→10:56)
[2019-04-11] MEDS ORDERED: MIDAZolam 5mg/5ml vial ONE (06:26)
[2019-04-11] MEDS ORDERED: SUFENTANIL CITRATE 50 MCG/ML 2ml ampule IV ONE (06:26)
--- NOTE | 2019-04-11 06:31 | NUR ---
Problems reprioritized. Patient report given, questions answered & plan of care reviewed with LACY Jennings.
[2019-04-11] MEDS ORDERED: 0.9 % SODIUM CHLORIDE 10 ML VIAL ONE ×2 (06:32)
[2019-04-11] MEDS ORDERED: rocuronium 10mg/ml inj IV ONE ×3 (06:38→08:58)
[2019-04-11] MEDS: metoprolol tartrate 12.5mg (1/2 tablet) PO SCH (06:38)
[2019-04-11] MEDS ORDERED: LIDOcaine 2% (20mg/ml) 5ml vial ONE (06:38)
[2019-04-11] MEDS ORDERED: propofol inj 20 ML IV ONE (06:38)
[2019-04-11] MEDS ORDERED: ePHEDrine 50MG/ML INJ. ONE (06:38)
[2019-04-11] MEDS: mupirocin 2% nasal ointment 1gm UD NS SCH ×2 (06:38→20:41)
[2019-04-11] MEDS ORDERED: phenylephrine 10mg/ml inj. ONE (06:39)
[2019-04-11] MEDS ORDERED: NORepinephrine 8 MG in NS 250 ML BAG (32 mcg/ml) IV ONE (06:42)
[2019-04-11] MEDS ORDERED: sevoflurane 250ml liquid IH ONE (06:42)
[2019-04-11] MEDS ORDERED: calcium chloride 100 MG/1 ML inj IV ONE (06:42)
[2019-04-11] MEDS ORDERED: nitroGLYCERIN in D5W 50mg/250ml (Tridil) infusion IV ONE (06:42)
[2019-04-11] MEDS ORDERED: aminocaproic acid 250 MG/1 ML inj. ONE (06:42)
[2019-04-11] MEDS ORDERED: DOBUTamine/D5W 500mg/250ml premix IV ONE (06:42)
--- NOTE | 2019-04-11 06:45 | NUR ---
Patient to OR with CVOR team; pre-op completed. Patient alert/oriented and stable. Sheath intact; bilateral palpable pulses.
[2019-04-11] MEDS: furosemide 40mg tablet PO SCH (07:09)
[2019-04-11] MEDS: budesonide 0.5mg/2ml UD nebule IH SCH ×2 (07:09→19:31)
[2019-04-11] MEDS: atorvastatin 10mg tablet PO SCH (07:09)
[2019-04-11] MEDS: docusate sod 100mg capsule PO SCH (07:09)
[2019-04-11] MEDS: metoprolol succinate 25mg (24-HOUR) SR. Tablet PO SCH (07:09)
[2019-04-11] MEDS: K and/or MAG REPLACEMENT MC SCH (07:09)
[2019-04-11] MEDS: aspirin 81mg tablet.DR PO SCH (07:09)
[2019-04-11] MEDS ORDERED: pantoprazole 40mg Tablet.DR PO SCH (07:30)
[2019-04-11 07:55] LABS: ABG BASE EXCESS 0.7 mmol/L (-2.0-3.0); ABG HCO3 25.3 mmol/L (22.0-26.0); ABG OXYGEN SATURATION 99.4 % (95-98); ABG PCO2 40.1 mmHg (35.0-45.0); ABG PH 7.417 (7.350-7.450); CL (ABG) 103 mmol/L (99-107); FCOHb 0.7 % (0.5-1.5); FMetHb 0.1 % (0.3-1.12); FO2Hb 98.6 % (94-100); GLUCOSE (ABG) 181 mg/dl (70-104); IONIZED CA (ABG) 1.15 mmol/L (1.03-1.32); K (ABG) 3.9 mmol/L (3.3-5.1); NA (ABG) 134 mmol/L (135-145)
[2019-04-11] MEDS ORDERED: HYDROchlorothiazide 12.5mg capsule PO SCH (08:00)
[2019-04-11] MEDS ORDERED: lisinopril 20mg tablet PO SCH (08:00)
[2019-04-11] MEDS ORDERED: papaverine 30 mg/ml 2ml inj. IA ONE (08:01)
[2019-04-11] MEDS ORDERED: albumin (Human) 5% 250ml 250 ML IV ONE (08:58)
[2019-04-11 09:35] LABS: ABG BASE EXCESS -0.2 mmol/L (-2.0-3.0); ABG HCO3 24.1 mmol/L (22.0-26.0); ABG OXYGEN SATURATION 99.4 % (95-98); ABG PO2 201.2 mmHg (60.0-100.0); CL (ABG) 104 mmol/L (99-107); FCOHb 0.9 % (0.5-1.5); FMetHb 0.3 % (0.3-1.12); FO2Hb 98.2 % (94-100); GLUCOSE (ABG) 159 mg/dl (70-104); IONIZED CA (ABG) 1.13 mmol/L (1.03-1.32); NA (ABG) 136 mmol/L (135-145); TOTAL HEMOGLOBIN 12.1 G/dl (14.0-17.9)
[2019-04-11] MEDS ORDERED: FLU VACC QS2019-20 36MOS UP/PF 60 MCG/0.5 ML SYRINGE IMVAC ONE (10:00)
[2019-04-11] MEDS ORDERED: MESSAGE TO NURSING PO ONE (10:00)
[2019-04-11] MEDS ORDERED: pneumococcal 23-VAL P-sac vacc 25 mcg/0.5ml vial IMVAC ONE (10:00)
[2019-04-11 10:21] LABS: ABG BASE EXCESS -0.8 mmol/L (-2.0-3.0); ABG HCO3 23.9 mmol/L (22.0-26.0); ABG OXYGEN SATURATION 98.9 % (95-98); ABG PCO2 39.4 mmHg (35.0-45.0); ABG PO2 138.7 mmHg (60.0-100.0); CL (ABG) 105 mmol/L (99-107); FMetHb 0.3 % (0.3-1.12); FO2Hb 97.6 % (94-100); GLUCOSE (ABG) 157 mg/dl (70-104); IONIZED CA (ABG) 1.26 mmol/L (1.03-1.32); K (ABG) 3.9 mmol/L (3.3-5.1); NA (ABG) 136 mmol/L (135-145); TOTAL HEMOGLOBIN 11.7 G/dl (14.0-17.9)
[2019-04-11] MEDS ORDERED: dexamethasone sod phosphate 4mg/ml inj. ONE (10:42)
[2019-04-11] MEDS ORDERED: niCARDipine-NS 40mg/200ml IVPB 200 ML IV PRN (10:56)
[2019-04-11] MEDS ORDERED: nitroGLYCERIN-Tridil 50MG/D5W 250 ML IV PRN (10:56)
[2019-04-11] MEDS ORDERED: DOPamine 400mg/D5W 250ml 250 ML IV PRN (10:56)
[2019-04-11] MEDS ORDERED: bisacodyl 10mg suppository rectal RC PRN (11:00)
[2019-04-11] MEDS ORDERED: Neutra Phos packet PO PRN (11:00)
[2019-04-11] MEDS ORDERED: metoclopramide 5 mg/ml inj IV PRN (11:00)
[2019-04-11] MEDS ORDERED: magnesium citrate 296ml oral solution PO PRN (11:00)
[2019-04-11] MEDS ORDERED: pantoprazole 40 MG vial IV ONE (11:00)
[2019-04-11] MEDS ORDERED: mineral oil 133ml enema RC PRN (11:00)
[2019-04-11] MEDS ORDERED: magnesium hydroxide 30ml (MOM) UD suspension PO PRN (11:00)
[2019-04-11] MEDS ORDERED: magnesium 4gm in 100ml NS 100 ML IV PRN (11:00)
[2019-04-11] MEDS ORDERED: potassium Cl 20 mEq SR tablet PO PRN (11:00)
[2019-04-11] MEDS ORDERED: sodium phosphate inj. 30 MMOL in dextrose 5%-water 250 ML IV PRN (11:00)
[2019-04-11] MEDS ORDERED: insulin glargine (Lantus) pen - multi-dose SQ PRN (11:00)
[2019-04-11] MEDS ORDERED: dextrose 50%-water 50ml dispensing syringe IV PRN (11:00)
[2019-04-11] MEDS ORDERED: normal saline 250ml IV soln 250 ML IV PRN (11:00)
[2019-04-11] MEDS ORDERED: sodium phosphate inj. 15 MMOL in dextrose 5%-water 150 ML IV PRN (11:00)
--- NOTE | 2019-04-11 11:00 | NUR ---
Received to room 2045, accompanied by MDs and surgical crew. Placed on ventilator, to spray unit feeder, arterial line and PA line pressure monitored. Chest tubes to suction at 20 cm. Muse cath to gravity drainage. Dressings are dry and intact. See assessment record. All vasoactive drugs are infusing via central line. PA Catheter pulled out by Dr. Cruz to obtain better placement. (Radiology confirmed poor placement of original PA line.)
[2019-04-11] MEDS: albumin (Human) 5% 250ml 250 ML IV PRN ×3 (11:23→19:21)
[2019-04-11 11:45] LABS: ABG BASE EXCESS -2.5 mmol/L (-2.0-3.0); ABG HCO3 21.7 mmol/L (22.0-26.0); ABG OXYGEN SATURATION 99.5 % (95-98); ABG PCO2 (T) 35.4 mmHg (35.0-45.0); ABG PH (T) 7.405 (7.350-7.450); ABG PO2 (T) 537.6 mmHg (83-108); FCOHb 0.3 % (0.5-1.5); FLOW 50 L/min; FMetHb 0.2 % (0.3-1.12); PEEP 5 cm H2O; RESPIRATORY RATE 16 b/min; TIDAL VOLUME 600 mL; TOTAL HEMOGLOBIN 11.7 G/dl (14.0-17.9)
[2019-04-11 11:53] LABS: BASOPHILS % (AUTO) 0.3 % (0-1); EOSINOPHILS # (AUTO) 0.1 X10'3 (0-0.9); EOSINOPHILS % (AUTO) 0.5 % (0-6); HEMATOCRIT 33.3 % (42.0-52.0); HEMOGLOBIN 11.3 g/dl (14.0-17.9); LYMPHOCYTES # (AUTO) 0.9 X10'3 (1.1-4.8); MEAN CORPUSCULAR HEMOGLOBIN 31.2 PG (27.0-31.0); MEAN CORPUSCULAR HGB CONC 33.9 g/dL (33.0-36.5); MEAN CORPUSCULAR VOLUME 91.9 FL (78-98); MEAN PLATELET VOLUME 7.6 FL (7.4-10.4); MONOCYTES # (AUTO) 0.4 X10'3 (0-0.9); MONOCYTES % (AUTO) 2.9 % (2-12); NEUTROPHILS # (AUTO) 12.2 X10'3 (1.8-7.7); NEUTROPHILS % (AUTO) 89.3 % (42-75); PLATELET COUNT 234 X10'3 (140-440); RED BLOOD COUNT 3.62 X10'6 (4.70-6.10); RED CELL DISTRIBUTION WIDTH 14.1 % (11.5-14.5); WHITE BLOOD COUNT 13.6 X10'3 (4.5-11.0)
[2019-04-11 12:02] LABS: PARTIAL THROMBOPLASTIN TIME 31 SECONDS (22-32)
[2019-04-11 12:05] LABS: ALANINE AMINOTRANSFERASE 11 U/L (12-78); ALBUMIN 2.8 G/DL (3.4-5.0); ALBUMIN/GLOBULIN RATIO 0.9 (1.1-1.5); ALKALINE PHOSPHATASE 66 IU/L (46-116); ANION GAP 6 (8-16); ASPARTATE AMINO TRANSFERASE 29 U/L (10-37); BILIRUBIN,TOTAL 0.5 MG/DL (0.1-1.0); BLOOD UREA NITROGEN 16 MG/DL (7-18); BUN/CREATININE RATIO 11.9 (5.4-32.0); CHLORIDE 106 MMOL/L (99-107); CREATININE 1.35 MG/DL (0.60-1.10); GLUCOSE 153 MG/DL (70-104); MAGNESIUM 1.6 MG/DL (1.5-2.4); PHOSPHORUS 2.2 MG/DL (2.3-4.5); SODIUM 138 MMOL/L (135-145); TOTAL CARBON DIOXIDE 26.3 MMOL/L (24-32); eGFR 51 ML/MIN
[2019-04-11 12:08] LABS: POTASSIUM 3.7 MMOL/L (3.5-5.1)
[2019-04-11] MEDS: sodium chloride 0.45% 1,000 ML IV SCH (12:27)
[2019-04-11] MEDS: gabapentin 300mg capsule PO SCH ×2 (12:27→20:42)
[2019-04-11] MEDS: potassium Cl 20mEq/100mL bag 100 ML IV PRN ×5 (12:33→21:14)
[2019-04-11] MEDS: DOBUTamine-DoBUTrex 500mg/D5W 250 ML IV SCH (14:40)
[2019-04-11] MEDS: NORepinephrine 8mg/ 250ml NS 250 ML IV SCH ×4 (14:40→22:52)
[2019-04-11] MEDS: magnesium 2GM in 50ml NS 50 ML IV PRN (15:09)
[2019-04-11] MEDS: ceFAZolin 1GM/D5W- ADD-VANTAGE 50 ML IV SCH (16:07)
[2019-04-11 17:13] LABS: BASOPHILS % (AUTO) 0.1 % (0-1); EOSINOPHILS % (AUTO) 0 % (0-6); HEMATOCRIT 31.9 % (42.0-52.0); HEMOGLOBIN 10.8 g/dl (14.0-17.9); LYMPHOCYTES # (AUTO) 0.4 X10'3 (1.1-4.8); LYMPHOCYTES % (AUTO) 3.5 % (21-51); MEAN CORPUSCULAR HGB CONC 33.8 g/dL (33.0-36.5); MEAN CORPUSCULAR VOLUME 91.8 FL (78-98); MEAN PLATELET VOLUME 7.3 FL (7.4-10.4); MONOCYTES # (AUTO) 0.3 X10'3 (0-0.9); MONOCYTES % (AUTO) 2.7 % (2-12); NEUTROPHILS # (AUTO) 11.8 X10'3 (1.8-7.7); NEUTROPHILS % (AUTO) 93.7 % (42-75); PLATELET COUNT 228 X10'3 (140-440); RED BLOOD COUNT 3.48 X10'6 (4.70-6.10); RED CELL DISTRIBUTION WIDTH 14.3 % (11.5-14.5); WHITE BLOOD COUNT 12.7 X10'3 (4.5-11.0)
[2019-04-11 17:25] LABS: ALBUMIN 3.3 G/DL (3.4-5.0); ANION GAP 8 (8-16); BLOOD UREA NITROGEN 15 MG/DL (7-18); BUN/CREATININE RATIO 10.5 (5.4-32.0); CALCIUM 8.7 MG/DL (8.5-10.1); CHLORIDE 106 MMOL/L (99-107); CREATININE 1.43 MG/DL (0.60-1.10); GLUCOSE 154 MG/DL (70-104); MAGNESIUM 3.3 MG/DL (1.5-2.4); POTASSIUM 4.2 MMOL/L (3.5-5.1); SODIUM 139 MMOL/L (135-145); TOTAL CARBON DIOXIDE 25.1 MMOL/L (24-32); eGFR 48 ML/MIN
[2019-04-11] MEDS: vancomycin/NS 1 GM ADD-VANTAGE 250 ML IV SCH (20:41)
[2019-04-11] MEDS: sennosides/docusate sodium tablet PO SCH (20:42)
--- NOTE | 2019-04-11 21:40 | NUR ---
RN Note -MD Communication Dr. Cruz at bedside. Updated on pt condition. Ok to continue to wean off pressers and wean to extubate from vent.
[2019-04-11 23:46] LABS: ABG BASE EXCESS -3.5 mmol/L (-2.0-3.0); ABG HCO3 22.2 mmol/L (22.0-26.0); ABG OXYGEN SATURATION 96.5 % (95-98); ABG PCO2 (T) 43.2 mmHg (35.0-45.0); ABG PO2 (T) 96.1 mmHg (83-108); FCOHb 0.3 % (0.5-1.5); FMetHb 0.1 % (0.3-1.12); FO2Hb 96.1 % (94-100); PATIENT TEMPERATURE 37.3; PEEP 5 cm H2O; TOTAL HEMOGLOBIN 10.7 G/dl (14.0-17.9)
--- NOTE | 2019-04-11 23:56 | NUR ---
RN Note -Pt extubated 0482.
[2019-04-12] VITALS (24 sets, daily range): BP systolic 91–135; BP diastolic 46–77
[2019-04-12 00:02] LABS: BASOPHILS % (AUTO) 0 % (0-1); EOSINOPHILS % (AUTO) 0 % (0-6); HEMATOCRIT 29.5 % (42.0-52.0); LYMPHOCYTES # (AUTO) 0.4 X10'3 (1.1-4.8); LYMPHOCYTES % (AUTO) 3.8 % (21-51); MEAN CORPUSCULAR HEMOGLOBIN 31.4 PG (27.0-31.0); MEAN CORPUSCULAR VOLUME 92.2 FL (78-98); MEAN PLATELET VOLUME 7.4 FL (7.4-10.4); MONOCYTES # (AUTO) 0.7 X10'3 (0-0.9); MONOCYTES % (AUTO) 6.3 % (2-12); NEUTROPHILS # (AUTO) 10.4 X10'3 (1.8-7.7); NEUTROPHILS % (AUTO) 89.9 % (42-75); PLATELET COUNT 193 X10'3 (140-440); RED CELL DISTRIBUTION WIDTH 14.5 % (11.5-14.5); WHITE BLOOD COUNT 11.5 X10'3 (4.5-11.0)
[2019-04-12 00:12] LABS: ALANINE AMINOTRANSFERASE 12 U/L (12-78); ALBUMIN 3.4 G/DL (3.4-5.0); ALBUMIN/GLOBULIN RATIO 1.2 (1.1-1.5); ALKALINE PHOSPHATASE 57 IU/L (46-116); ANION GAP 6 (8-16); ASPARTATE AMINO TRANSFERASE 26 U/L (10-37); BILIRUBIN,TOTAL 0.4 MG/DL (0.1-1.0); BLOOD UREA NITROGEN 17 MG/DL (7-18); CALCIUM 8.6 MG/DL (8.5-10.1); CHLORIDE 108 MMOL/L (99-107); CREATININE 1.42 MG/DL (0.60-1.10); GLUCOSE 127 MG/DL (70-104); PHOSPHORUS 3.3 MG/DL (2.3-4.5); SODIUM 139 MMOL/L (135-145); TOTAL CARBON DIOXIDE 25.1 MMOL/L (24-32); TOTAL PROTEIN 6.3 G/DL (6.4-8.2); eGFR 48 ML/MIN
[2019-04-12] MEDS: ceFAZolin 1GM/D5W- ADD-VANTAGE 50 ML IV SCH ×3 (00:42→16:32)
[2019-04-12] MEDS: morphine 4 MG/ML inj SYRINge IV PRN ×2 (01:05→05:26)
[2019-04-12] MEDS: NORepinephrine 8mg/ 250ml NS 250 ML IV SCH ×9 (01:36→23:28)
[2019-04-12] MEDS: HYDROcodone/acetaminophen 10/325mg tab PO PRN ×3 (02:49→22:44)
[2019-04-12 04:39] LABS: BASOPHILS % (AUTO) 0.3 % (0-1); EOSINOPHILS % (AUTO) 0 % (0-6); HEMATOCRIT 29.5 % (42.0-52.0); HEMOGLOBIN 10.2 g/dl (14.0-17.9); LYMPHOCYTES # (AUTO) 0.5 X10'3 (1.1-4.8); MEAN CORPUSCULAR HEMOGLOBIN 32.2 PG (27.0-31.0); MEAN CORPUSCULAR HGB CONC 34.6 g/dL (33.0-36.5); MEAN CORPUSCULAR VOLUME 92.9 FL (78-98); MEAN PLATELET VOLUME 7.6 FL (7.4-10.4); MONOCYTES % (AUTO) 8.3 % (2-12); NEUTROPHILS # (AUTO) 11.1 X10'3 (1.8-7.7); NEUTROPHILS % (AUTO) 87.4 % (42-75); PLATELET COUNT 191 X10'3 (140-440); RED BLOOD COUNT 3.18 X10'6 (4.70-6.10); RED CELL DISTRIBUTION WIDTH 14.6 % (11.5-14.5); WHITE BLOOD COUNT 12.7 X10'3 (4.5-11.0)
[2019-04-12 04:43] LABS: PARTIAL THROMBOPLASTIN TIME 29 SECONDS (22-32)
[2019-04-12 04:45] LABS: ALANINE AMINOTRANSFERASE 14 U/L (12-78); ALBUMIN 3.3 G/DL (3.4-5.0); ALBUMIN/GLOBULIN RATIO 1.1 (1.1-1.5); ALKALINE PHOSPHATASE 57 IU/L (46-116); ANION GAP 8 (8-16); ASPARTATE AMINO TRANSFERASE 26 U/L (10-37); BILIRUBIN,TOTAL 0.4 MG/DL (0.1-1.0); BLOOD UREA NITROGEN 18 MG/DL (7-18); BUN/CREATININE RATIO 13.8 (5.4-32.0); CALCIUM 8.6 MG/DL (8.5-10.1); CHLORIDE 106 MMOL/L (99-107); GLUCOSE 126 MG/DL (70-104); MAGNESIUM 2.7 MG/DL (1.5-2.4); PHOSPHORUS 3.9 MG/DL (2.3-4.5); POTASSIUM 5.4 MMOL/L (3.5-5.1); SODIUM 141 MMOL/L (135-145); TOTAL CARBON DIOXIDE 26.6 MMOL/L (24-32); TOTAL PROTEIN 6.3 G/DL (6.4-8.2); eGFR 54 ML/MIN
[2019-04-12] MEDS ORDERED: furosemide 40mg/4ml inj ONE (05:15)
[2019-04-12] MEDS: albuterol 2.5 MG/3 ML nebule NEB PRN ×3 (05:20→17:26)
[2019-04-12] MEDS ORDERED: metoprolol tartrate 12.5mg (1/2 tablet) PO SCH ×2 (08:00→10:45)
[2019-04-12] MEDS: gabapentin 300mg capsule PO SCH ×3 (09:11→20:29)
[2019-04-12] MEDS: sennosides/docusate sodium tablet PO SCH ×2 (09:11→20:27)
[2019-04-12] MEDS: atorvastatin 10mg tablet PO SCH (09:11)
[2019-04-12] MEDS: aspirin 325mg tablet, delayed-release (Ecotrin) PO SCH (09:11)
[2019-04-12] MEDS: mupirocin 2% nasal ointment 1gm UD NS SCH ×2 (09:12→20:29)
[2019-04-12] MEDS: vancomycin/NS 1 GM ADD-VANTAGE 250 ML IV SCH ×2 (09:21→20:26)
[2019-04-12] MEDS: budesonide 0.5mg/2ml UD nebule IH SCH ×2 (09:46→19:14)
[2019-04-12] MEDS ORDERED: metoprolol tartrate 12.5mg (1/2 tablet) PO ONE (10:45)
[2019-04-12] MEDS ORDERED: furosemide 40mg/4ml inj IV ONE (15:25)
[2019-04-12] MEDS: albuterol 2.5 MG/3 ML nebule NEB SCH ×2 (19:14→23:02)
[2019-04-12] MEDS: metoprolol tartrate 25mg tablet PO SCH (20:29)
[2019-04-12] MEDS: acetaminophen 325mg tablet PO PRN (20:38)
--- NOTE | 2019-04-12 23:27 | NUR ---
RN Note -MD Communication Notified Dr. Cruz of pt increasing shortness of breath and work of breathing. Lung sounds are tight and wheezy, pt speaking in one and two word sentences, temperature is 38.3 degrees.
[2019-04-13] VITALS (24 sets, daily range): BP systolic 92–129; BP diastolic 41–79
[2019-04-13] MEDS: ceFAZolin 1GM/D5W- ADD-VANTAGE 50 ML IV SCH (00:37)
[2019-04-13] MEDS: albuterol 2.5 MG/3 ML nebule NEB SCH ×5 (02:09→18:57)
[2019-04-13] MEDS: NORepinephrine 8mg/ 250ml NS 250 ML IV SCH ×8 (02:12→21:20)
[2019-04-13 02:25] LABS: ABG BASE EXCESS -2.6 mmol/L (-2.0-3.0); ABG HCO3 24.2 mmol/L (22.0-26.0); ABG OXYGEN SATURATION 95.8 % (95-98); ABG PCO2 (T) 52.8 mmHg (35.0-45.0); ABG PH (T) 7.283 (7.350-7.450); ALLEN'S TEST POSITIVE; FCOHb 0.3 % (0.5-1.5); FLOW 2 L/min; FMetHb 0.1 % (0.3-1.12); FO2Hb 95.4 % (94-100); PATIENT TEMPERATURE 37.6; TOTAL HEMOGLOBIN 10.5 G/dl (14.0-17.9)
[2019-04-13 03:43] LABS: BASOPHILS % (AUTO) 0.4 % (0-1); EOSINOPHILS # (AUTO) 0.1 X10'3 (0-0.9); EOSINOPHILS % (AUTO) 0.6 % (0-6); HEMOGLOBIN 9.7 g/dl (14.0-17.9); LYMPHOCYTES # (AUTO) 1.5 X10'3 (1.1-4.8); MEAN CORPUSCULAR HEMOGLOBIN 31.2 PG (27.0-31.0); MEAN CORPUSCULAR HGB CONC 33.3 g/dL (33.0-36.5); MEAN CORPUSCULAR VOLUME 93.7 FL (78-98); MEAN PLATELET VOLUME 7.7 FL (7.4-10.4); MONOCYTES # (AUTO) 1.2 X10'3 (0-0.9); MONOCYTES % (AUTO) 10.7 % (2-12); NEUTROPHILS # (AUTO) 8.7 X10'3 (1.8-7.7); NEUTROPHILS % (AUTO) 75.3 % (42-75); PLATELET COUNT 179 X10'3 (140-440); RED CELL DISTRIBUTION WIDTH 14.7 % (11.5-14.5); WHITE BLOOD COUNT 11.5 X10'3 (4.5-11.0)
[2019-04-13 03:57] LABS: ALBUMIN 3.3 G/DL (3.4-5.0); ANION GAP 5 (8-16); BLOOD UREA NITROGEN 36 MG/DL (7-18); BUN/CREATININE RATIO 14.9 (5.4-32.0); CHLORIDE 104 MMOL/L (99-107); CREATININE 2.41 MG/DL (0.60-1.10); GLUCOSE 115 MG/DL (70-104); MAGNESIUM 2.7 MG/DL (1.5-2.4); PHOSPHORUS 4.8 MG/DL (2.3-4.5); POTASSIUM 4.9 MMOL/L (3.5-5.1); SODIUM 136 MMOL/L (135-145); TOTAL CARBON DIOXIDE 26.7 MMOL/L (24-32); eGFR 26 ML/MIN
[2019-04-13] MEDS: HYDROcodone/acetaminophen 10/325mg tab PO PRN ×3 (05:17→18:48)
[2019-04-13] MEDS: morphine 4 MG/ML inj SYRINge IV PRN ×4 (05:25→23:49)
--- NOTE | 2019-04-13 06:36 | NUR ---
Patient in room ICU 2045. I have received report from LACY Cherry and had the opportunity to ask questions and assume patient care.
[2019-04-13] MEDS: budesonide 0.5mg/2ml UD nebule IH SCH ×2 (07:30→18:57)
[2019-04-13] MEDS: pantoprazole 40mg Tablet.DR PO SCH (07:46)
[2019-04-13] MEDS: gabapentin 300mg capsule PO SCH (07:47)
[2019-04-13] MEDS: atorvastatin 10mg tablet PO SCH (07:47)
[2019-04-13] MEDS: aspirin 325mg tablet, delayed-release (Ecotrin) PO SCH (07:47)
[2019-04-13] MEDS: mupirocin 2% nasal ointment 1gm UD NS SCH (07:48)
[2019-04-13] MEDS: sennosides/docusate sodium tablet PO SCH ×2 (07:48→20:14)
[2019-04-13] MEDS: metoprolol tartrate 25mg tablet PO SCH ×2 (07:48→20:14)
[2019-04-13] MEDS: DOBUTamine-DoBUTrex 500mg/D5W 250 ML IV SCH (09:17)
--- NOTE | 2019-04-13 09:21 | NUR ---
pt initially oriented to self,place ,purpose,suddenly became confused,"stop all these projects,I want to ,I'm getting out of here" pt pulled self up to sitting on side of bed ,pulled off o2,agitated,complained of pain to chest,medicated with 2 mg morphine iv ,assisted back to bed with x3 assist,repositioned for comfort 5 minute bout of trigemny,resolved to occasional pvc
[2019-04-13] MEDS ORDERED: acetylcysteine 200 MG/ml 4ml vial INH ONE (09:55)
[2019-04-13] MEDS: acetaminophen 325mg tablet PO PRN (10:21)
[2019-04-13] MEDS: sodium chloride 0.45% 1,000 ML IV SCH (10:56)
--- NOTE | 2019-04-13 13:24 | NUR ---
pt up in chair x2 assist medicated for pain x1 pain pill w/ good relief,cont moist,non-productive cough,ate all of yogurt few bites meat
--- NOTE | 2019-04-13 14:14 | NUR ---
Break Nurse Entry: PT assisting pt. back to bed from recliner chair.
[2019-04-13] MEDS: guaiFENesin 200 MG/10 ML oral syrup UD cup PO PRN (14:43)
--- NOTE | 2019-04-13 18:07 | NUR ---
attempted to assist pt up to chair for dinner with x2 assist,unable,pt knees buckled,could not stand,pt denies pain,awoke confused after nap,back to bed
--- NOTE | 2019-04-13 18:26 | NUR ---
Problems reprioritized. Patient report given, questions answered & plan of care reviewed with Michael HOUSE.
[2019-04-13] MEDS ORDERED: furosemide 40mg/4ml inj IV ONE (18:45)
[2019-04-13] MEDS ORDERED: NORepinephrine 8mg/ 250ml NS 250 ML IV PRN (22:42)
[2019-04-14] VITALS (24 sets, daily range): BP systolic 98–145; BP diastolic 38–94
[2019-04-14] MEDS: albuterol 2.5 MG/3 ML nebule NEB SCH ×8 (00:31→23:33)
[2019-04-14] MEDS: HYDROcodone/acetaminophen 10/325mg tab PO PRN (01:01)
[2019-04-14 03:10] LABS: BASOPHILS % (AUTO) 0.3 % (0-1); EOSINOPHILS % (AUTO) 0.4 % (0-6); HEMOGLOBIN 9.5 g/dl (14.0-17.9); LYMPHOCYTES # (AUTO) 0.5 X10'3 (1.1-4.8); LYMPHOCYTES % (AUTO) 5.9 % (21-51); MEAN CORPUSCULAR HEMOGLOBIN 31.6 PG (27.0-31.0); MEAN CORPUSCULAR VOLUME 93.1 FL (78-98); MEAN PLATELET VOLUME 7.6 FL (7.4-10.4); MONOCYTES % (AUTO) 11.9 % (2-12); NEUTROPHILS # (AUTO) 6.8 X10'3 (1.8-7.7); NEUTROPHILS % (AUTO) 81.5 % (42-75); PLATELET COUNT 161 X10'3 (140-440); RED BLOOD COUNT 3.01 X10'6 (4.70-6.10); RED CELL DISTRIBUTION WIDTH 14.4 % (11.5-14.5); WHITE BLOOD COUNT 8.3 X10'3 (4.5-11.0)
[2019-04-14 03:12] LABS: ANION GAP 11 (8-16); BLOOD UREA NITROGEN 50 MG/DL (7-18); BUN/CREATININE RATIO 20.2 (5.4-32.0); CALCIUM 8.9 MG/DL (8.5-10.1); CHLORIDE 104 MMOL/L (99-107); CREATININE 2.47 MG/DL (0.60-1.10); GLUCOSE 124 MG/DL (70-104); MAGNESIUM 2.6 MG/DL (1.5-2.4); PHOSPHORUS 4.7 MG/DL (2.3-4.5); POTASSIUM 5.2 MMOL/L (3.5-5.1); SODIUM 137 MMOL/L (135-145); TOTAL CARBON DIOXIDE 22.5 MMOL/L (24-32); eGFR 26 ML/MIN
--- NOTE | 2019-04-14 06:00 | NUR ---
Patient in room ICU 2045. I have received report from Babita Bryant RN and had the opportunity to ask questions and assume patient care.
[2019-04-14 06:06] LABS: ACTIVATED CLOTTING TIME 142 SEC (101-148)
[2019-04-14 06:06] LABS: ACT @ 1.70 U 323 SEC (193-297); ACT @ 2.84 U 476 SEC (260-420); BASELINE ACT 152 SEC (101-148); PATIENT WEIGHT 98.0k KG
[2019-04-14] MEDS: morphine 4 MG/ML inj SYRINge IV PRN (06:10)
[2019-04-14] MEDS: budesonide 0.5mg/2ml UD nebule IH SCH ×2 (06:58→19:35)
[2019-04-14] MEDS: pantoprazole 40mg Tablet.DR PO SCH (07:59)
[2019-04-14] MEDS: atorvastatin 10mg tablet PO SCH (07:59)
[2019-04-14] MEDS: metoprolol tartrate 25mg tablet PO SCH ×2 (08:00→20:00)
[2019-04-14] MEDS: sennosides/docusate sodium tablet PO SCH ×2 (08:00→20:00)
[2019-04-14] MEDS: aspirin 325mg tablet, delayed-release (Ecotrin) PO SCH (08:01)
--- NOTE | 2019-04-14 09:00 | NUR ---
9 beat run of V tach at 0752, aware, no new orders received. EKG done due to monitor changes and frequent PVCs/bigeminy. Pt asymptomatic. Will continue to monitor.
[2019-04-14 09:40] LABS: ABG BASE EXCESS -5.7 mmol/L (-2.0-3.0); ABG HCO3 21.2 mmol/L (22.0-26.0); ABG OXYGEN SATURATION 93.1 % (95-98); ABG PCO2 (T) 48.1 mmHg (35.0-45.0); ABG PH (T) 7.263 (7.350-7.450); ABG PO2 (T) 72.4 mmHg (83-108); ALLEN'S TEST POSITIVE; FCOHb 0.3 % (0.5-1.5); FLOW 2 L/min; FMetHb 0.3 % (0.3-1.12); FO2Hb 92.5 % (94-100); TOTAL HEMOGLOBIN 10.2 G/dl (14.0-17.9)
--- NOTE | 2019-04-14 11:00 | NUR ---
Placed post-thorax vest on patient due to inability to adhere to sternal precautions due to confusion.
[2019-04-14] MEDS: furosemide 40mg/4ml inj IV SCH ×2 (11:53→20:15)
[2019-04-14] MEDS ORDERED: FLU VACC QS2019-20 36MOS UP/PF 60 MCG/0.5 ML SYRINGE IMVAC ONE (12:50)
[2019-04-14] MEDS ORDERED: haloperidol lactate 5mg/ml inj IM ONE (15:15)
--- NOTE | 2019-04-14 15:30 | NUR ---
MD made aware of increased agitation. Patient pulling at catheter, lines, and attempting to get out of bed. Patient confused and refusing care and teaching. Increased agitation. facilities officer spoke with Dr. Brown, received orders for Haldol 5mg IM once. Will continue to monitor.
[2019-04-14 16:06] LABS: ABG BASE EXCESS -7.4 mmol/L (-2.0-3.0); ABG HCO3 18.2 mmol/L (22.0-26.0); ABG OXYGEN SATURATION 92.9 % (95-98); ABG PCO2 (T) 37.4 mmHg (35.0-45.0); ABG PH (T) 7.306 (7.350-7.450); ABG PO2 (T) 70.3 mmHg (83-108); ALLEN'S TEST POSITIVE; FCOHb 0.3 % (0.5-1.5); FLOW 2 L/min; FO2Hb 92.6 % (94-100); TOTAL HEMOGLOBIN 10.4 G/dl (14.0-17.9)
[2019-04-14] MEDS ORDERED: sodium bicarbonate (8.4%) inj. 1 MEQ/ML ML ONE (16:06)
[2019-04-14] MEDS ORDERED: sodium bicarbonate (8.4%) 1 mEq/ml syringe IV ONE (16:10)
[2019-04-14] MEDS: levoFLOXACIN-Levaquin 500mg/D5 100 ML IV SCH (17:10)
--- NOTE | 2019-04-14 18:20 | NUR ---
Problems reprioritized. Patient report given, questions answered & plan of care reviewed with LACY Roa.
[2019-04-14] MEDS ORDERED: metoprolol tartrate 1mg/ml inj IV ONE (20:05)
[2019-04-14] MEDS: ziprasidone IM 20mg inj **IM only IM SCH (20:15)
[2019-04-15] VITALS (24 sets, daily range): BP systolic 97–166; BP diastolic 58–86
[2019-04-15 03:09] LABS: ALBUMIN 3.1 G/DL (3.4-5.0); ANION GAP 8 (8-16); BLOOD UREA NITROGEN 58 MG/DL (7-18); BUN/CREATININE RATIO 26.7 (5.4-32.0); CHLORIDE 104 MMOL/L (99-107); CREATININE 2.17 MG/DL (0.60-1.10); GLUCOSE 148 MG/DL (70-104); MAGNESIUM 2.5 MG/DL (1.5-2.4); PHOSPHORUS 3.7 MG/DL (2.3-4.5); POTASSIUM 4.8 MMOL/L (3.5-5.1); SODIUM 141 MMOL/L (135-145); TOTAL CARBON DIOXIDE 28.6 MMOL/L (24-32); eGFR 30 ML/MIN
[2019-04-15 03:10] LABS: BASOPHILS % (AUTO) 0.4 % (0-1); EOSINOPHILS % (AUTO) 0.1 % (0-6); HEMATOCRIT 29.7 % (42.0-52.0); LYMPHOCYTES # (AUTO) 0.8 X10'3 (1.1-4.8); LYMPHOCYTES % (AUTO) 8.2 % (21-51); MEAN CORPUSCULAR HEMOGLOBIN 31.4 PG (27.0-31.0); MEAN CORPUSCULAR HGB CONC 33.6 g/dL (33.0-36.5); MEAN CORPUSCULAR VOLUME 93.2 FL (78-98); MEAN PLATELET VOLUME 7.8 FL (7.4-10.4); MONOCYTES # (AUTO) 1.3 X10'3 (0-0.9); MONOCYTES % (AUTO) 13.2 % (2-12); NEUTROPHILS # (AUTO) 7.8 X10'3 (1.8-7.7); NEUTROPHILS % (AUTO) 78.1 % (42-75); PLATELET COUNT 205 X10'3 (140-440); RED BLOOD COUNT 3.18 X10'6 (4.70-6.10); RED CELL DISTRIBUTION WIDTH 14.2 % (11.5-14.5)
[2019-04-15] MEDS: albuterol 2.5 MG/3 ML nebule NEB SCH ×6 (03:26→22:44)
[2019-04-15] MEDS: levoFLOXACIN-Levaquin 500mg/D5 100 ML IV SCH (07:21)
[2019-04-15] MEDS: furosemide 40mg/4ml inj IV SCH ×2 (07:21→19:04)
[2019-04-15] MEDS: sennosides/docusate sodium tablet PO SCH ×2 (07:22→19:06)
[2019-04-15] MEDS: aspirin 325mg tablet, delayed-release (Ecotrin) PO SCH (07:22)
[2019-04-15] MEDS: pantoprazole 40mg Tablet.DR PO SCH (07:22)
[2019-04-15] MEDS: ziprasidone IM 20mg inj **IM only IM SCH ×2 (07:22→19:05)
[2019-04-15] MEDS: atorvastatin 10mg tablet PO SCH (07:22)
[2019-04-15] MEDS: metoprolol tartrate 25mg tablet PO SCH ×3 (07:30→19:05)
[2019-04-15] MEDS ORDERED: metoprolol tartrate 50mg tablet PO ONE (07:50)
[2019-04-15] MEDS ORDERED: metoprolol tartrate 25mg tablet PO SCH (08:00)
[2019-04-15] MEDS ORDERED: metoprolol tartrate 25mg tablet PO ONE (08:05)
--- NOTE | 2019-04-15 08:33 | NUR ---
Dr. Cruz in to see pt. Dose of Metropolol increased. aware that pt. already had 25 mg. Additional 25mg given as d/w Dr. Cruz. Pt. passed BSS. Can have nectar thick liquid and pureed food.
[2019-04-15] MEDS: budesonide 0.5mg/2ml UD nebule IH SCH ×2 (08:43→18:36)
[2019-04-15] MEDS ORDERED: niCARDipine-NS 40mg/200ml IVPB 200 ML IV PRN (09:32)
[2019-04-15] MEDS ORDERED: nitroGLYCERIN-Tridil 50MG/D5W 250 ML IV PRN (09:32)
[2019-04-15] MEDS: sodium chloride 0.45% 1,000 ML IV SCH (10:56)
--- NOTE | 2019-04-15 12:57 | NUR ---
Pt. transitioned to 3L nc at approx. 1215.
[2019-04-15] MEDS: acetaminophen 325mg tablet PO PRN ×2 (13:26→18:29)
--- NOTE | 2019-04-15 14:59 | NUR ---
Initial: pt is s/p redo sternotomy and CABG x 1. Per ST BSS recs, pt diet advanced to pureed, [place] thick liquids with no concentrated sweets, pending PO intake. Pt is currently AOx2, will provide CABG education once pt is more alert. LBM 2/3. Will continue to monitor. Recommendations: 1. continue pureed diet with nectar thick liquids and no concentrated sweets diet per ST BSS recs 2. monitor need for ONS 3. CABG education once pt is more alert 4. bowel care as needed 5. weight per rx Addendum: 04/15/19 at 1459 by Wing Sallie RUSSELL Amended: Links added. Addendum: 04/15/19 at [address] YVONNE Approves
--- NOTE | 2019-04-15 15:26 | NUR ---
Pt. more tacypnic now. RT to give neb txt. and then place pt. back on hi flow 02.
--- NOTE | 2019-04-15 18:03 | NUR ---
Pt. noted to pull off pulse ox, pick ay PIV at times but is easily redirected and reoriented. Sitter remains at bedside for pt. safety.
--- NOTE | 2019-04-15 18:11 | NUR ---
Problems reprioritized. Patient report given, questions answered & plan of care reviewed with Janina HOUSE.
[2019-04-15] MEDS: lactobacillus rhamnosus 10,000 MMU CELLS/CAPSULE PO SCH (19:05)
[2019-04-16] VITALS (24 sets, daily range): BP systolic 100–166; BP diastolic 46–99
--- NOTE | 2019-04-16 | NUR ---
Patient received scheduled dose of Geodon at 1930. Linen changed. HS care performed and patient slept. Patient has not slept in 3 days. Patient wakened at 2245 and immediately very restless and anxious. Confused. Unable to reorient. Attempting to get OOB. Picking at lines. Sitter remains at bedside. With all the anxiety and activity patient very wheezy and tachypneic. Rate in mid to high 40's. RT gave scheduled aerosol treatment with little relief. Again provided personal care and linen changed. Repositioned. Still very restless and now complaining of not being able to breathe. 0030 Duarte Menezes contacted and updated on patient's history and present condition. Order obtained for Morphine 4mg IV x1. 0045 Morphine given as ordered. Patient calmer and sleeping within minutes. Will continue to monitor. Sitter remains at bedside.
[2019-04-16] MEDS ORDERED: morphine 4 MG/ML inj SYRINge IM ONE (00:20)
[2019-04-16] MEDS: ondansetron/PF 4mg/2ml inj IV PRN ×2 (00:33→12:54)
[2019-04-16 02:40] LABS: BASOPHILS % (AUTO) 0.1 % (0-1); EOSINOPHILS % (AUTO) 0 % (0-6); HEMATOCRIT 30.3 % (42.0-52.0); HEMOGLOBIN 10.2 g/dl (14.0-17.9); LYMPHOCYTES # (AUTO) 0.5 X10'3 (1.1-4.8); LYMPHOCYTES % (AUTO) 4.2 % (21-51); MEAN CORPUSCULAR HGB CONC 33.6 g/dL (33.0-36.5); MEAN CORPUSCULAR VOLUME 92.3 FL (78-98); MEAN PLATELET VOLUME 7.8 FL (7.4-10.4); MONOCYTES # (AUTO) 0.8 X10'3 (0-0.9); MONOCYTES % (AUTO) 6.5 % (2-12); NEUTROPHILS # (AUTO) 10.9 X10'3 (1.8-7.7); NEUTROPHILS % (AUTO) 89.2 % (42-75); PLATELET COUNT 224 X10'3 (140-440); RED BLOOD COUNT 3.28 X10'6 (4.70-6.10); RED CELL DISTRIBUTION WIDTH 14.4 % (11.5-14.5); WHITE BLOOD COUNT 12.2 X10'3 (4.5-11.0)
[2019-04-16] MEDS: albuterol 2.5 MG/3 ML nebule NEB SCH ×6 (02:43→23:04)
[2019-04-16 02:53] LABS: ALBUMIN 2.9 G/DL (3.4-5.0); ANION GAP 5 (8-16); BLOOD UREA NITROGEN 61 MG/DL (7-18); BUN/CREATININE RATIO 29.9 (5.4-32.0); CALCIUM 9.1 MG/DL (8.5-10.1); CHLORIDE 109 MMOL/L (99-107); CREATININE 2.04 MG/DL (0.60-1.10); GLUCOSE 169 MG/DL (70-104); MAGNESIUM 2.4 MG/DL (1.5-2.4); PHOSPHORUS 3.7 MG/DL (2.3-4.5); POTASSIUM 4.4 MMOL/L (3.5-5.1); SODIUM 146 MMOL/L (135-145); TOTAL CARBON DIOXIDE 32.2 MMOL/L (24-32); eGFR 32 ML/MIN
--- NOTE | 2019-04-16 06:40 | NUR ---
Am report received. Report given to LACY Jennings, at this time.
[2019-04-16] MEDS: atorvastatin 10mg tablet PO SCH (07:39)
[2019-04-16] MEDS: sennosides/docusate sodium tablet PO SCH ×2 (07:39→19:10)
[2019-04-16] MEDS: aspirin 325mg tablet, delayed-release (Ecotrin) PO SCH (07:39)
[2019-04-16] MEDS: pantoprazole 40mg Tablet.DR PO SCH (07:39)
[2019-04-16] MEDS: metoprolol tartrate 25mg tablet PO SCH ×2 (07:39→19:10)
[2019-04-16] MEDS: lactobacillus rhamnosus 10,000 MMU CELLS/CAPSULE PO SCH ×2 (07:39→19:10)
[2019-04-16] MEDS: furosemide 40mg/4ml inj IV SCH ×2 (07:39→19:09)
[2019-04-16] MEDS: ziprasidone IM 20mg inj **IM only IM SCH (07:47)
[2019-04-16] MEDS: budesonide 0.5mg/2ml UD nebule IH SCH ×2 (08:55→19:53)
[2019-04-16] MEDS ORDERED: levoFLOXACIN 500mg tablet PO SCH (11:00)
--- NOTE | 2019-04-16 13:00 | NUR ---
Patient having frequent PACs/PVCs this AM which look like possible A.Fib. EKG performed which shows a sinus rhythm. Dr. Cruz aware of the ectopy. Electrolytes stable. Also, this AM, patient pulled at jama catheter secondary to confusion causing a moderate amount of bleeding via the jama catheter to the point of clotting the catheter; 350ml of fluid shown on bladder scanner. Dr. Cruz and Dr. Brown both notified. Orders to replace jama catheter. Upon re-insertion of a new jama, aprox 500ml of parry red urine out. Some clots noted. Will continue to monitor.
--- NOTE | 2019-04-16 18:29 | NUR ---
Problems reprioritized. Patient report given, questions answered & plan of care reviewed with Janina HOUSE.
[2019-04-16] MEDS: acetaminophen 325mg tablet PO PRN (19:09)
[2019-04-16] MEDS: ziprasidone 20mg capsule PO SCH (19:10)
[2019-04-17] VITALS (17 sets, daily range): BP systolic 100–154; BP diastolic 49–81
[2019-04-17] MEDS: HYDROcodone/acetaminophen 10/325mg tab PO PRN ×3 (00:12→09:35)
[2019-04-17 03:10] LABS: BASOPHILS % (AUTO) 0.1 % (0-1); EOSINOPHILS % (AUTO) 0 % (0-6); HEMATOCRIT 28.3 % (42.0-52.0); HEMOGLOBIN 9.7 g/dl (14.0-17.9); LYMPHOCYTES # (AUTO) 0.8 X10'3 (1.1-4.8); LYMPHOCYTES % (AUTO) 7.1 % (21-51); MEAN CORPUSCULAR HEMOGLOBIN 32.1 PG (27.0-31.0); MEAN CORPUSCULAR HGB CONC 34.3 g/dL (33.0-36.5); MEAN CORPUSCULAR VOLUME 93.5 FL (78-98); MEAN PLATELET VOLUME 7.9 FL (7.4-10.4); NEUTROPHILS # (AUTO) 9.5 X10'3 (1.8-7.7); NEUTROPHILS % (AUTO) 83.8 % (42-75); PLATELET COUNT 218 X10'3 (140-440); RED BLOOD COUNT 3.03 X10'6 (4.70-6.10); RED CELL DISTRIBUTION WIDTH 14.3 % (11.5-14.5); WHITE BLOOD COUNT 11.4 X10'3 (4.5-11.0)
[2019-04-17 03:32] LABS: ALBUMIN 2.7 G/DL (3.4-5.0); ANION GAP 4 (8-16); BLOOD UREA NITROGEN 58 MG/DL (7-18); BUN/CREATININE RATIO 30.4 (5.4-32.0); CALCIUM 9.1 MG/DL (8.5-10.1); CHLORIDE 110 MMOL/L (99-107); CREATININE 1.91 MG/DL (0.60-1.10); GLUCOSE 159 MG/DL (70-104); MAGNESIUM 2.3 MG/DL (1.5-2.4); POTASSIUM 3.9 MMOL/L (3.5-5.1); SODIUM 149 MMOL/L (135-145); TOTAL CARBON DIOXIDE 34.6 MMOL/L (24-32); eGFR 34 ML/MIN
[2019-04-17] MEDS: albuterol 2.5 MG/3 ML nebule NEB SCH ×6 (03:41→23:19)
[2019-04-17] MEDS: magnesium 2GM in 50ml NS 50 ML IV PRN (04:08)
[2019-04-17] MEDS: potassium Cl 20mEq/100mL bag 100 ML IV PRN (04:09)
[2019-04-17] MEDS ORDERED: potassium Cl 20 mEq SR tablet PO PRN (07:10)
[2019-04-17] MEDS ORDERED: potassium Cl 20mEq/100mL bag 100 ML IV PRN (07:10)
[2019-04-17] MEDS ORDERED: magnesium 4gm in 100ml NS 100 ML IV PRN (07:10)
[2019-04-17] MEDS: pantoprazole 40mg Tablet.DR PO SCH (07:35)
[2019-04-17] MEDS: aspirin 325mg tablet, delayed-release (Ecotrin) PO SCH (07:36)
[2019-04-17] MEDS: metoprolol tartrate 25mg tablet PO SCH ×2 (07:36→21:17)
[2019-04-17] MEDS: atorvastatin 10mg tablet PO SCH (07:37)
[2019-04-17] MEDS: furosemide 40mg/4ml inj IV SCH ×2 (07:37→21:09)
[2019-04-17] MEDS: lactobacillus rhamnosus 10,000 MMU CELLS/CAPSULE PO SCH ×2 (07:37→21:17)
[2019-04-17] MEDS: sennosides/docusate sodium tablet PO SCH ×2 (07:37→21:18)
[2019-04-17] MEDS: budesonide 0.5mg/2ml UD nebule IH SCH ×2 (07:38→19:05)
[2019-04-17] MEDS: ziprasidone 20mg capsule PO SCH ×2 (07:44→21:18)
[2019-04-17] MEDS: magnesium Cl slow-release 64mg tablet PO SCH ×2 (07:45→22:05)
[2019-04-17] MEDS: potassium Cl 20 mEq SR tablet PO SCH ×2 (07:45→21:17)
[2019-04-17] MEDS: citalopram 20mg tablet PO SCH (08:00)
--- NOTE | 2019-04-17 08:00 | NUR ---
Pharmacy called x2 regarding missing AM med
--- NOTE | 2019-04-17 14:23 | NUR ---
PATIENT ARRIVED TO ROOM 308, SITTER AT BEDSIDE. ATTEMPTED TO ORIENT PATIENT TO NEW FLOOR/STAFF, HE DID NOT ACKNOWLEDGE, PER BASELINE RIGHT NOW ACCORDING TO MANUFACTURING WORKER.
--- NOTE | 2019-04-17 22:07 | NUR ---
patient is alert, oriented, able to know the president's name, the year, but unable to remember the hospitals name. Follow the commands.
[2019-04-18] MEDS: HYDROcodone/acetaminophen 10/325mg tab PO PRN (00:32)
--- NOTE | 2019-04-18 01:45 | NUR ---
the patient's O2 sat drop to 88-90. Increased the O2 NC to 5.5 L and reposition the patient. Charge Nurse-Yamileth aware of the issue. Now the O2 Sat is 96%. Patient is resting and not on any distress at this time.
[2019-04-18 02:00] VITALS: BP 142/76
[2019-04-18] MEDS: albuterol 2.5 MG/3 ML nebule NEB SCH ×6 (03:11→23:00)
[2019-04-18 03:54] LABS: BASOPHILS % (AUTO) 0.3 % (0-1); EOSINOPHILS % (AUTO) 0.1 % (0-6); HEMATOCRIT 33.4 % (42.0-52.0); HEMOGLOBIN 11.2 g/dl (14.0-17.9); LYMPHOCYTES % (AUTO) 7.9 % (21-51); MEAN CORPUSCULAR HEMOGLOBIN 31.4 PG (27.0-31.0); MEAN CORPUSCULAR HGB CONC 33.5 g/dL (33.0-36.5); MEAN CORPUSCULAR VOLUME 93.5 FL (78-98); MEAN PLATELET VOLUME 7.5 FL (7.4-10.4); MONOCYTES # (AUTO) 0.9 X10'3 (0-0.9); MONOCYTES % (AUTO) 7.2 % (2-12); NEUTROPHILS # (AUTO) 10.7 X10'3 (1.8-7.7); NEUTROPHILS % (AUTO) 84.5 % (42-75); PLATELET COUNT 258 X10'3 (140-440); RED BLOOD COUNT 3.57 X10'6 (4.70-6.10); RED CELL DISTRIBUTION WIDTH 14.5 % (11.5-14.5); WHITE BLOOD COUNT 12.6 X10'3 (4.5-11.0)
[2019-04-18 03:57] LABS: ALBUMIN 3.2 G/DL (3.4-5.0); ANION GAP 6 (8-16); BLOOD UREA NITROGEN 44 MG/DL (7-18); BUN/CREATININE RATIO 25.9 (5.4-32.0); CALCIUM 9.4 MG/DL (8.5-10.1); CHLORIDE 104 MMOL/L (99-107); GLUCOSE 157 MG/DL (70-104); POTASSIUM 4.2 MMOL/L (3.5-5.1); SODIUM 144 MMOL/L (135-145); TOTAL CARBON DIOXIDE 34.4 MMOL/L (24-32); eGFR 39 ML/MIN
[2019-04-18 04:55] LABS: TOTAL CELLS COUNTED 100
[2019-04-18 04:56] LABS: ANISOCYTOSIS 1+; PLATELET ESTIMATE NORMAL; TOXIC GRANULATION 2+
[2019-04-18 05:21] LABS: MAGNESIUM 2.5 MG/DL (1.5-2.4)
[2019-04-18 06:00] VITALS: BP 134/62
--- NOTE | 2019-04-18 06:25 | NUR ---
Problems reprioritized. Patient report given Williams, questions answered & plan of care reviewed with .
--- NOTE | 2019-04-18 06:30 | NUR ---
Patient in room MED 313. I have received report from Ra HOUSE and had the opportunity to ask questions and assume patient care. Addendum: 04/18/19 at 1226 by Eliana Trujillo RN Patient in room MED 313. I have received report from Valerie HOUSE and had the opportunity to ask questions and assume patient care.
[2019-04-18] MEDS: lactobacillus rhamnosus 10,000 MMU CELLS/CAPSULE PO SCH ×2 (07:17→21:02)
[2019-04-18] MEDS: aspirin 325mg tablet, delayed-release (Ecotrin) PO SCH (07:17)
[2019-04-18] MEDS: citalopram 20mg tablet PO SCH (07:17)
[2019-04-18] MEDS: magnesium Cl slow-release 64mg tablet PO SCH ×2 (07:18→19:10)
[2019-04-18] MEDS: pantoprazole 40mg Tablet.DR PO SCH (07:18)
[2019-04-18] MEDS: metoprolol tartrate 25mg tablet PO SCH ×2 (07:18→21:02)
[2019-04-18] MEDS: sennosides/docusate sodium tablet PO SCH ×2 (07:18→21:02)
[2019-04-18] MEDS: furosemide 40mg/4ml inj IV SCH (07:19)
[2019-04-18] MEDS: acetaminophen 325mg tablet PO PRN (07:19)
[2019-04-18] MEDS: atorvastatin 10mg tablet PO SCH (07:20)
[2019-04-18] MEDS: potassium Cl 20 mEq SR tablet PO SCH ×2 (07:42→21:02)
[2019-04-18] MEDS: budesonide 0.5mg/2ml UD nebule IH SCH ×2 (08:25→19:36)
[2019-04-18] MEDS: ziprasidone 20mg capsule PO SCH ×2 (10:00→21:02)
[2019-04-18] MEDS: nystatin 500,000 unit/5ML UD oral suspension PO SCH ×3 (10:09→21:01)
[2019-04-18] MEDS: levoFLOXACIN 750MG TABLET PO SCH (10:09)
[2019-04-18 11:00] VITALS: BP 94/52
--- NOTE | 2019-04-18 11:00 | NUR ---
Pt has not been able to urinate and had 525 with bladder scan. Will straight cath per protocol.
--- NOTE | 2019-04-18 11:20 | NUR ---
Pt was straight cath'ed using sterile technique. It was difficult to get urine to flow at first when catheter inserted and then a plug of blood and sediment passed through and urine passed freely. It was noted that pr had some dried blood around tip of penis from some possible prior trauma (it was noted that he had pulled it in ICU). After 480 ml of clear yellow urine with some small flecks of blood in it. Patient tolerated well but after catheter removed the urethra had a small amount of bleeding noted. Will continue to monitor and bladder scan per protocol.
[2019-04-18] MEDS: guaiFENesin 200 MG/10 ML oral syrup UD cup PO PRN (13:35)
[2019-04-18 15:00] VITALS: BP 142/74
--- NOTE | 2019-04-18 15:21 | NUR ---
Reassessment: Pt diet advanced to pureed no concentrated sweets diet with thin liquids per ST. No PO intake documentation since admit. Per bedside RN pt eating 0-25% despite receiving assistance with meals, not meeting nutrient needs. Pt currently documented at AOx1 likely impacting PO intake. RD email marketing intern visited pt at bedside to obtain preferences and encourage PO intake. Pt agreeable to chocolate Ensure pudding BIDLD, apple juice and Ensure Enlive TIDWM, d/w bedside RN and dietary. CABG nutrition therapy education not appropriate at this time given decreased mentation. LBM 2/, pt with routine bowel care. Will continue to monitor. Recommendations: 1. continue pureed no concentrated sweets diet with thin liquids per ST recs 2. ensure enlive TIDWM 3. chocolate ensure pudding BIDLD 4. CABG education once pt is more alert 5. bowel care as needed 6. weight per rx Addendum: 04/18/19 at 1521 by Wing Sallie RUSSELL Amended: Links added. Addendum: 04/18/19 at [address] I have reviewed and agree with note by Plant Anatomist. Symone Castro RD
--- NOTE | 2019-04-18 15:39 | NUR ---
Nursing asked DR Cruz if he had ever seen any family or SO visit or contact pt and he stated no and that the pt had been here a week now. Pt appears to be very depressed to staff and when asked about eating to get stronger and "better" he states "why". Nurse tried to contact SO that was on his contact information and the number was not working. the same number was listed as the pt's number as well. His SO has the same address listed as well. Dr Cruz requested nursing or Chiller Technician to call authorities about a well check on the address. Dr Cruz also requested SS consult order as well. Pt states she is his "girlfriend" and that nurses can call her about him when nurse told him the number for her is not working he could not tell her another number to try. SS zohreh be contacted.
--- NOTE | 2019-04-18 15:51 | NUR ---
Please contact [facility] unit regarding pt Karin Villavicencio room 313. ISHA. Deanna Suresh RN
--- NOTE | 2019-04-18 15:57 | NUR ---
Tracey Carnes, Consumer Banker, she states that she will investigate the patient's chart to see if she is able to find any other contact information for the patient. [facility] She will be reaching out to them as well. I let her know that we have attempted to contact the patient's girlfriend "Ioana" who is listed as next of kin. The phone number is not a working number.
--- NOTE | 2019-04-18 16:30 | NUR ---
Patients SO Ioana called and stated she had a cough and did not want to come in with it. she stated she would be in tomorrow to see pt. New phone number obtained and put in SBAR. Pt perked up when he was told that she was coming in tomorrow.
--- NOTE | 2019-04-18 16:47 | NUR ---
Bladder scan done and it was 354. Encouraging pt to drink (pt likes apple juice) and try to urinate as well. Will continue to help pt with urinal and drink fluids.
[2019-04-18 18:00] VITALS: BP 134/67
[2019-04-18] MEDS: lactose-reduced food (Ensure Enlive) - 237ml bottle PO SCH (18:00)
--- NOTE | 2019-04-18 18:34 | NUR ---
Problems reprioritized. Patient report given, questions answered & plan of care reviewed with Valerie HOUSE.
[2019-04-18 22:00] VITALS: BP 110/57
[2019-04-19 02:00] VITALS: BP 124/61
[2019-04-19] MEDS: HYDROcodone/acetaminophen 10/325mg tab PO PRN ×2 (02:43→21:20)
[2019-04-19] MEDS: albuterol 2.5 MG/3 ML nebule NEB SCH ×6 (03:02→23:13)
[2019-04-19 05:27] LABS: ALBUMIN 2.7 G/DL (3.4-5.0); ANION GAP 6 (8-16); BLOOD UREA NITROGEN 38 MG/DL (7-18); BUN/CREATININE RATIO 25.5 (5.4-32.0); CALCIUM 9.1 MG/DL (8.5-10.1); CHLORIDE 102 MMOL/L (99-107); CREATININE 1.49 MG/DL (0.60-1.10); GLUCOSE 133 MG/DL (70-104); POTASSIUM 4.5 MMOL/L (3.5-5.1); SODIUM 141 MMOL/L (135-145); TOTAL CARBON DIOXIDE 32.9 MMOL/L (24-32); eGFR 46 ML/MIN
[2019-04-19 05:47] LABS: BASOPHILS % (AUTO) 0.1 % (0-1); EOSINOPHILS # (AUTO) 0.1 X10'3 (0-0.9); EOSINOPHILS % (AUTO) 0.7 % (0-6); HEMATOCRIT 30.8 % (42.0-52.0); HEMOGLOBIN 10.4 g/dl (14.0-17.9); LYMPHOCYTES # (AUTO) 1.2 X10'3 (1.1-4.8); LYMPHOCYTES % (AUTO) 11.3 % (21-51); MEAN CORPUSCULAR HEMOGLOBIN 31.3 PG (27.0-31.0); MEAN CORPUSCULAR HGB CONC 33.8 g/dL (33.0-36.5); MEAN CORPUSCULAR VOLUME 92.6 FL (78-98); MEAN PLATELET VOLUME 7.9 FL (7.4-10.4); MONOCYTES # (AUTO) 0.8 X10'3 (0-0.9); NEUTROPHILS # (AUTO) 8.8 X10'3 (1.8-7.7); NEUTROPHILS % (AUTO) 80.9 % (42-75); PLATELET COUNT 237 X10'3 (140-440); RED BLOOD COUNT 3.32 X10'6 (4.70-6.10); RED CELL DISTRIBUTION WIDTH 14.4 % (11.5-14.5); WHITE BLOOD COUNT 10.9 X10'3 (4.5-11.0)
[2019-04-19 06:00] VITALS: BP 130/66
--- NOTE | 2019-04-19 06:21 | NUR ---
Problems reprioritized. Patient report given to Williams, questions answered & plan of care reviewed with .
--- NOTE | 2019-04-19 06:30 | NUR ---
Patient in room MED 313. I have received report from Donte HOUSE and had the opportunity to ask questions and assume patient care.
[2019-04-19 07:05] LABS: MAGNESIUM 2.2 MG/DL (1.5-2.4)
[2019-04-19] MEDS: budesonide 0.5mg/2ml UD nebule IH SCH ×2 (07:30→19:15)
[2019-04-19] MEDS: clopidogrel 75mg tablet PO SCH (07:41)
[2019-04-19] MEDS: aspirin 81mg tablet.DR PO SCH (07:41)
[2019-04-19] MEDS: atorvastatin 10mg tablet PO SCH (07:41)
[2019-04-19] MEDS: magnesium Cl slow-release 64mg tablet PO SCH ×2 (07:41→20:35)
[2019-04-19] MEDS: pantoprazole 40mg Tablet.DR PO SCH (07:41)
[2019-04-19] MEDS: ziprasidone 20mg capsule PO SCH ×2 (07:42→20:34)
[2019-04-19] MEDS: sennosides/docusate sodium tablet PO SCH ×2 (07:42→20:34)
[2019-04-19] MEDS: citalopram 20mg tablet PO SCH (07:42)
[2019-04-19] MEDS: furosemide 40mg tablet PO SCH (07:43)
[2019-04-19] MEDS: lactobacillus rhamnosus 10,000 MMU CELLS/CAPSULE PO SCH ×2 (07:43→20:34)
[2019-04-19] MEDS: nystatin 500,000 unit/5ML UD oral suspension PO SCH ×3 (07:46→20:37)
[2019-04-19] MEDS: potassium Cl 20 mEq SR tablet PO SCH ×2 (07:46→20:37)
[2019-04-19] MEDS: magnesium 2GM in 50ml NS 50 ML IV PRN (07:47)
[2019-04-19] MEDS: metoprolol tartrate 25mg tablet PO SCH ×2 (07:51→20:34)
[2019-04-19] MEDS: lactose-reduced food (Ensure Enlive) - 237ml bottle PO SCH ×3 (08:00→18:00)
[2019-04-19 11:00] VITALS: BP 128/59
--- NOTE | 2019-04-19 14:29 | NUR ---
Patient has continued to have difficulty urinating. He voided 150 ml this morning and 125 ml now. Post void bladder scan done and showed 340 ml in bladder.
--- NOTE | 2019-04-19 16:20 | NUR ---
When pt was helped to urinate using urinal a small clot of blood came out with urine. He then had some notable blood oozing from tip of penis. He stated that it had been "sore" since catheter was removed. Will continue to monitor. He did have more urine output on 175 however.
[2019-04-19 18:00] VITALS: BP 142/61
--- NOTE | 2019-04-19 18:29 | NUR ---
Patient in room MED 313. I have received report from Eliana HOUSE and had the opportunity to ask questions and assume patient care.
[2019-04-19 22:00] VITALS: BP 117/66
[2019-04-20 02:00] VITALS: BP 142/62
[2019-04-20] MEDS: ondansetron/PF 4mg/2ml inj IV PRN (02:23)
[2019-04-20] MEDS: albuterol 2.5 MG/3 ML nebule NEB SCH ×6 (03:05→23:07)
[2019-04-20 05:22] LABS: ALBUMIN 2.8 G/DL (3.4-5.0); ANION GAP 2 (8-16); BLOOD UREA NITROGEN 31 MG/DL (7-18); BUN/CREATININE RATIO 21.5 (5.4-32.0); CALCIUM 9.2 MG/DL (8.5-10.1); CHLORIDE 103 MMOL/L (99-107); CREATININE 1.44 MG/DL (0.60-1.10); GLUCOSE 119 MG/DL (70-104); POTASSIUM 4.9 MMOL/L (3.5-5.1); SODIUM 139 MMOL/L (135-145); TOTAL CARBON DIOXIDE 34.4 MMOL/L (24-32); eGFR 48 ML/MIN
[2019-04-20 05:24] LABS: BASOPHILS % (AUTO) 0.1 % (0-1); EOSINOPHILS # (AUTO) 0.3 X10'3 (0-0.9); EOSINOPHILS % (AUTO) 2.6 % (0-6); HEMATOCRIT 30.3 % (42.0-52.0); HEMOGLOBIN 10.1 g/dl (14.0-17.9); LYMPHOCYTES # (AUTO) 1.3 X10'3 (1.1-4.8); LYMPHOCYTES % (AUTO) 11.2 % (21-51); MEAN CORPUSCULAR HEMOGLOBIN 30.8 PG (27.0-31.0); MEAN CORPUSCULAR HGB CONC 33.4 g/dL (33.0-36.5); MEAN CORPUSCULAR VOLUME 92.1 FL (78-98); MEAN PLATELET VOLUME 7.7 FL (7.4-10.4); MONOCYTES # (AUTO) 0.8 X10'3 (0-0.9); MONOCYTES % (AUTO) 6.9 % (2-12); NEUTROPHILS # (AUTO) 8.9 X10'3 (1.8-7.7); NEUTROPHILS % (AUTO) 79.2 % (42-75); PLATELET COUNT 245 X10'3 (140-440); RED BLOOD COUNT 3.29 X10'6 (4.70-6.10); RED CELL DISTRIBUTION WIDTH 14.5 % (11.5-14.5); WHITE BLOOD COUNT 11.3 X10'3 (4.5-11.0)
[2019-04-20 06:30] VITALS: BP 123/55
--- NOTE | 2019-04-20 06:32 | NUR ---
Problems reprioritized. Patient report given, questions answered & plan of care reviewed with PAT RN.
[2019-04-20] MEDS: budesonide 0.5mg/2ml UD nebule IH SCH ×2 (06:39→19:05)
[2019-04-20] MEDS: aspirin 81mg tablet.DR PO SCH (07:56)
[2019-04-20] MEDS: atorvastatin 10mg tablet PO SCH (07:56)
[2019-04-20] MEDS: lactobacillus rhamnosus 10,000 MMU CELLS/CAPSULE PO SCH ×2 (07:56→20:49)
[2019-04-20] MEDS: clopidogrel 75mg tablet PO SCH (07:56)
[2019-04-20] MEDS: furosemide 40mg tablet PO SCH (07:57)
[2019-04-20] MEDS: citalopram 20mg tablet PO SCH (07:57)
[2019-04-20] MEDS: ziprasidone 20mg capsule PO SCH ×2 (07:57→20:51)
[2019-04-20] MEDS: lactose-reduced food (Ensure Enlive) - 237ml bottle PO SCH ×3 (07:57→18:00)
[2019-04-20] MEDS: sennosides/docusate sodium tablet PO SCH ×2 (07:57→20:00)
[2019-04-20] MEDS: metoprolol tartrate 25mg tablet PO SCH ×2 (07:59→20:51)
[2019-04-20] MEDS: pantoprazole 40mg Tablet.DR PO SCH (07:59)
[2019-04-20] MEDS: magnesium Cl slow-release 64mg tablet PO SCH ×2 (08:00→20:00)
[2019-04-20] MEDS: potassium Cl 20 mEq SR tablet PO SCH ×2 (08:00→20:00)
--- NOTE | 2019-04-20 08:00 | NUR ---
PATIENT'S SATS AT 98% ON ONE LITER/ NC; HOWEVER, BREATH SOUNDS COARSE THROUGHOUT WITH SCATTERED CRACKLES NOTED. ENCOURAGE USE OF IS AND FLUTTER VALVE . PULLS I.S. UP TO 500 ML.
--- NOTE | 2019-04-20 08:00 | NUR ---
ENCOURAGE USE OF IS ; PATIENT PULLS IS UP TO 500 ML. Addendum: 04/20/19 at 1621 by Ioana Mcdonnell RN Amended: Links added.
[2019-04-20 09:01] LABS: MAGNESIUM 2.5 MG/DL (1.5-2.4)
--- NOTE | 2019-04-20 10:26 | NUR ---
SPOKE WITH DR. BARDALES ABOUT PT'S BLOOD CLOTS WHILE URINATING+HEMATURIA ORDER FOR PSA- AND PATIENT WILL LIKELY NEED FOLLOW UP FOR THIS ISSUE PER MD
[2019-04-20 11:00] VITALS: BP 114/60
[2019-04-20] MEDS: nystatin 500,000 unit/5ML UD oral suspension PO SCH ×3 (11:27→21:35)
[2019-04-20] MEDS: levoFLOXACIN 750MG TABLET PO SCH (11:28)
--- NOTE | 2019-04-20 12:09 | NUR ---
Reassessment: Pt PO remains poor 0% main meals and 25-50% ONS. Pt is eating ensure puddings receiving but overall not meeting needs. Pt mental status much improved per MD note. Pt seen by RD for written/verbal CABG/pureed diet eds w/ RD contact information provided. Pt reports lower appetite and usually good appetite at home; denies oral sores and other oral issues which can effect PO. Pt reports drinks ensures and enjoys ensure puddings but just no appetite at this time. RD encouraged PO and reviewed pureed diet guidelines in case d/c on pureed per SUPERVISOR HIDE HOUSE recs. LBM 2/ receiving MoM PRN 04/19 and routine senna BID. Will continue to monitor. Recommendations: 1. continue pureed no concentrated sweets diet with thin liquids per ST recs; encourage PO 2. ensure enlive TIDWM 3. chocolate ensure pudding BIDLD 4. routine bowel care 5. weekly wts Addendum: 04/20/19 at [address] Amended: Links added.
[2019-04-20] MEDS: acetaminophen 325mg tablet PO PRN (12:58)
--- NOTE | 2019-04-20 13:04 | NUR ---
MEDICATED WITH TYLENOL FOR C/O INC PAIN, STATES " HURTS MORE WHEN TAKING A DEEP BREATH." Addendum: 04/20/19 at 1315 by Ioana Mcdonnell RN Amended: Links added.
[2019-04-20 15:00] VITALS: BP 107/60
[2019-04-20 18:00] VITALS: BP 130/53
[2019-04-20 22:02] VITALS: BP 129/59
[2019-04-20] MEDS: HYDROcodone/acetaminophen 10/325mg tab PO PRN (22:21)
[2019-04-21 02:00] VITALS: BP 124/70
[2019-04-21] MEDS: HYDROcodone/acetaminophen 10/325mg tab PO PRN ×3 (02:59→20:08)
[2019-04-21] MEDS: albuterol 2.5 MG/3 ML nebule NEB SCH ×6 (03:10→23:12)
[2019-04-21 05:00] LABS: ALBUMIN 2.7 G/DL (3.4-5.0); ANION GAP 3 (8-16); BLOOD UREA NITROGEN 24 MG/DL (7-18); BUN/CREATININE RATIO 17.1 (5.4-32.0); CALCIUM 9.3 MG/DL (8.5-10.1); CHLORIDE 101 MMOL/L (99-107); GLUCOSE 124 MG/DL (70-104); MAGNESIUM 2.4 MG/DL (1.5-2.4); POTASSIUM 4.4 MMOL/L (3.5-5.1); SODIUM 137 MMOL/L (135-145); eGFR 49 ML/MIN
--- NOTE | 2019-04-21 06:03 | NUR ---
Problems reprioritized. Patient report given, questions answered & plan of care reviewed with CASSANDRA HOUSE.
--- NOTE | 2019-04-21 06:15 | NUR ---
Patient in room MED 313. I have received report from Regina HOUSE and had the opportunity to ask questions and assume patient care.
[2019-04-21 06:30] VITALS: BP 141/56
[2019-04-21] MEDS: metoprolol tartrate 25mg tablet PO SCH (08:57)
[2019-04-21] MEDS: aspirin 81mg tablet.DR PO SCH (08:57)
[2019-04-21] MEDS: nystatin 500,000 unit/5ML UD oral suspension PO SCH ×3 (08:57→20:10)
[2019-04-21] MEDS: sennosides/docusate sodium tablet PO SCH ×2 (08:57→20:10)
[2019-04-21] MEDS: ziprasidone 20mg capsule PO SCH (08:58)
[2019-04-21] MEDS: lactobacillus rhamnosus 10,000 MMU CELLS/CAPSULE PO SCH ×2 (08:58→20:08)
[2019-04-21] MEDS: potassium Cl 20 mEq SR tablet PO SCH ×2 (08:58→20:08)
[2019-04-21] MEDS: citalopram 20mg tablet PO SCH (08:58)
[2019-04-21] MEDS: lactose-reduced food (Ensure Enlive) - 237ml bottle PO SCH ×3 (08:58→18:00)
[2019-04-21] MEDS: magnesium Cl slow-release 64mg tablet PO SCH ×2 (08:58→20:08)
[2019-04-21] MEDS: furosemide 40mg tablet PO SCH (08:58)
[2019-04-21] MEDS: atorvastatin 10mg tablet PO SCH (08:58)
[2019-04-21] MEDS: pantoprazole 40mg Tablet.DR PO SCH (08:58)
[2019-04-21] MEDS: clopidogrel 75mg tablet PO SCH (08:58)
[2019-04-21] MEDS: acetaminophen 325mg tablet PO PRN ×2 (09:01→13:35)
--- NOTE | 2019-04-21 09:20 | NUR ---
Paged RT RT came to do breathing treatment, but RN was finishing two medications and RT said he was unable to do breathing treatment at this time and had to go to ED. Paged RT that RN was done in room "[facility] 313A. Pt is ready for scheduled breathing treatment. Thank you!"
--- NOTE | 2019-04-21 10:29 | NUR ---
At 1026 patient was being assisted out of chair, once patient sat down on bed he experienced a 50 second episode of bradycardia. Dropped down to 29 bpm. Currently palpated HR of 70 and sustaining without complaint. RT was paged r/t patient c/o of difficulty breathing. Patient resting in bed with HOB up at this time. Jose russell MD.
--- NOTE | 2019-04-21 10:40 | NUR ---
Jon KENT and left voicemail re: episode of bradycardia.
[2019-04-21] MEDS: budesonide 0.5mg/2ml UD nebule IH SCH ×2 (10:45→19:47)
[2019-04-21 11:00] VITALS: BP 124/50
--- NOTE | 2019-04-21 11:03 | NUR ---
Received call from Dr. Cruz re: patient's episode of bradycardia, informed him of what happened. Gave orders to do EKG if heart rhythm changes.
--- NOTE | 2019-04-21 12:40 | NUR ---
Made Ranulfo KENT aware of 2nd episode of bradycardia.
[2019-04-21 15:00] VITALS: BP 150/88
--- NOTE | 2019-04-21 16:20 | NUR ---
Called Dr. Cruz to make aware that patient converted to A-fib 90's for 1 minute then converted back to NSR 80's after a 3rd drop in HR down to 33 bpm nonsustained. Herb last [address] Cruz states to call him if patient converts to anything other than SINUS (SR, SB) specifically Junctional or pauses or A-fib/V-fib. Will replace K+ and Mag up to 4.5/2.5 now.
[2019-04-21 18:00] VITALS: BP 159/67
--- NOTE | 2019-04-21 18:00 | NUR ---
Patient in room MED 313. I have received report from LACY Bean and had the opportunity to ask questions and assume patient care.
--- NOTE | 2019-04-21 18:15 | NUR ---
Gave report to Jessica HOUSE
--- NOTE | 2019-04-21 18:40 | NUR ---
Got patient up to the bed side commode. Patient started feeling short of breath and Heart rate luis to 34. heart rate went up to 116 atrial flutter. patient recovered to sinus rhythm in the 80s within 1 minute. Will continue to monitor.
[2019-04-21] MEDS ORDERED: metoprolol tartrate 25mg tablet PO SCH (20:00)
[2019-04-21] MEDS ORDERED: lisinopril 20mg tablet PO SCH (21:00)
[2019-04-21 22:00] VITALS: BP 138/70
--- NOTE | 2019-04-22 01:50 | NUR ---
Patient needed to use the bed nielson. Rolled patient from back to side to back again. Patient had a 6 beat run of vtach, asymptomatic. Will continue to monitor.
[2019-04-22 02:00] VITALS: BP 152/72
[2019-04-22 02:45] LABS: BASOPHILS % (AUTO) 0.1 % (0-1); EOSINOPHILS # (AUTO) 0.1 X10'3 (0-0.9); EOSINOPHILS % (AUTO) 1.3 % (0-6); HEMATOCRIT 30.5 % (42.0-52.0); HEMOGLOBIN 10.5 g/dl (14.0-17.9); LYMPHOCYTES % (AUTO) 8.6 % (21-51); MEAN CORPUSCULAR HEMOGLOBIN 31.9 PG (27.0-31.0); MEAN CORPUSCULAR HGB CONC 34.6 g/dL (33.0-36.5); MEAN CORPUSCULAR VOLUME 92.3 FL (78-98); MEAN PLATELET VOLUME 7.9 FL (7.4-10.4); MONOCYTES # (AUTO) 0.7 X10'3 (0-0.9); MONOCYTES % (AUTO) 6.5 % (2-12); NEUTROPHILS # (AUTO) 9.4 X10'3 (1.8-7.7); NEUTROPHILS % (AUTO) 83.5 % (42-75); PLATELET COUNT 268 X10'3 (140-440); RED CELL DISTRIBUTION WIDTH 14.5 % (11.5-14.5); WHITE BLOOD COUNT 11.3 X10'3 (4.5-11.0)
[2019-04-22 02:47] LABS: ALBUMIN 2.9 G/DL (3.4-5.0); ANION GAP 5 (8-16); BLOOD UREA NITROGEN 20 MG/DL (7-18); BUN/CREATININE RATIO 15.6 (5.4-32.0); CALCIUM 9.2 MG/DL (8.5-10.1); CHLORIDE 101 MMOL/L (99-107); CREATININE 1.28 MG/DL (0.60-1.10); GLUCOSE 113 MG/DL (70-104); MAGNESIUM 2.2 MG/DL (1.5-2.4); POTASSIUM 4.5 MMOL/L (3.5-5.1); SODIUM 139 MMOL/L (135-145); TOTAL CARBON DIOXIDE 32.6 MMOL/L (24-32); eGFR 54 ML/MIN
[2019-04-22] MEDS: albuterol 2.5 MG/3 ML nebule NEB SCH ×3 (02:53→11:56)
[2019-04-22] MEDS: magnesium 2GM in 50ml NS 50 ML IV PRN (03:28)
[2019-04-22] MEDS: HYDROcodone/acetaminophen 10/325mg tab PO PRN ×2 (04:03→15:06)
[2019-04-22 06:00] VITALS: BP 144/65
--- NOTE | 2019-04-22 06:31 | NUR ---
Patient in room MED 313. I have received report from LACY Adler and had the opportunity to ask questions and assume patient care.
[2019-04-22] MEDS: budesonide 0.5mg/2ml UD nebule IH SCH (07:22)
--- NOTE | 2019-04-22 07:29 | NUR ---
PT HAS STANDING TX ORDER FOR RT DOES NOT NEED RT EVAL AND TX ORDER HAS BEEN DC PER PROTOCOL Addendum: 04/22/19 at 0730 by Sarah Pickett RT Amended: Links added.
[2019-04-22] MEDS: furosemide 40mg tablet PO SCH (08:00)
[2019-04-22] MEDS: lactose-reduced food (Ensure Enlive) - 237ml bottle PO SCH ×2 (08:00→13:00)
[2019-04-22] MEDS: aspirin 81mg tablet.DR PO SCH (08:00)
[2019-04-22] MEDS: clopidogrel 75mg tablet PO SCH (09:00)
[2019-04-22] MEDS: lactobacillus rhamnosus 10,000 MMU CELLS/CAPSULE PO SCH (09:00)
[2019-04-22] MEDS: atorvastatin 10mg tablet PO SCH (09:01)
[2019-04-22] MEDS: citalopram 20mg tablet PO SCH (09:01)
[2019-04-22] MEDS: magnesium Cl slow-release 64mg tablet PO SCH (09:01)
[2019-04-22] MEDS: sennosides/docusate sodium tablet PO SCH (09:02)
[2019-04-22] MEDS: nystatin 500,000 unit/5ML UD oral suspension PO SCH ×2 (09:02→15:01)
[2019-04-22] MEDS: pantoprazole 40mg Tablet.DR PO SCH (09:18)
[2019-04-22] MEDS: potassium Cl 20 mEq SR tablet PO SCH (09:19)
[2019-04-22 11:00] VITALS: BP 154/52
[2019-04-22 13:26] LABS: % FREE PSA 11.2 % (.); PSA, FREE 0.29 ng/mL
[2019-04-22 15:00] VITALS: BP 163/85
--- NOTE | 2019-04-22 15:00 | NUR ---
PT C/O incisional pain 5/10 ,medicated with 1 norco 10 po with good relief
[2019-04-22] MEDS: guaiFENesin 200 MG/10 ML oral syrup UD cup PO PRN (15:06)
--- NOTE | 2019-04-22 16:00 | NUR ---
REPORT PHONED TO MICHAEL ARNETT RN,PT TRANSFERED VIA [facility] WITH ALL BELONGINGS
[2019-04-22 16:07] LABS: CLARITY,URINE SLIGHTLY CLOUDY (Clear); COLOR,URINE STRAW (Yellow); GLUCOSE, URINE NEGATIVE (Neg); KETONES,URINE 15 mg/dl (Neg); LEUKOCYTE ESTERASE ,URINE NEGATIVE (Neg); NITRITES, URINE NEGATIVE (Neg); OCCULT BLOOD,URINE LARGE (Neg); PH,URINE 7.5 (4.8-8.0); PROTEIN,URINE NEGATIVE (Neg); UROBILINOGEN,URINE 0.2 E.U/dL (0.2-1.0)
[2019-04-22 16:12] LABS: UA COLLECTION TYPE VOIDED
[2019-04-22 16:28] LABS: HYALINE CASTS 0-3 /LPF (NEGATIVE); MUCUS STRANDS FEW /LPF (Neg); SQUAMOUS EPITHELIAL CELL,UR FEW /LPF (FEW); TRANSITIONAL EPI CELLS,URINE FEW /HPF
[2019-04-22 16:29] LABS: BACTERIA,URINE NONE SEEN /HPF (Neg); RBC,URINE 50-100 /HPF (0-2); WBC,URINE 0-4 /HPF (0-4)
[2019-04-22 16:30] LABS: AMORPHOUS PHOSPHATES 1+
[2019-04-22] MEDS ORDERED: cefepime 2g/NS 100ml ADVANTAGE 100 ML IV SCH (20:00)
== END 2019-04-22 16:10 | DRG 233 ==
LOC: ER 02:41 → ED HOLD 06:43 → MED 3N 09:05 → ICU 2S 14:57 → CMPBEDREQ 04-14 19:25 → MED 3N 04-17 14:20
PROVIDERS: ADMIT Internal Medicine; ATTEND Thoracic Surgery (Cardiothoracic Vascular Surgery)
PROC: 4A023N7 Measurement of Cardiac Sampling and Pressure, Left Heart, Percutaneous Approach (ICD-10-PCS; 2019-04-10)
PROC: B2151ZZ Fluoroscopy of Left Heart using Low Osmolar Contrast (ICD-10-PCS; 2019-04-10)
PROC: B2111ZZ Fluoroscopy of Multiple Coronary Arteries using Low Osmolar Contrast (ICD-10-PCS; 2019-04-10)
PROC: B2181ZZ Fluoroscopy of Left Internal Mammary Bypass Graft using Low Osmolar Contrast (ICD-10-PCS; 2019-04-10)
PROC: BW241ZZ Computerized Tomography (CT Scan) of Chest and Abdomen using Low Osmolar Contrast (ICD-10-PCS; 2019-04-10)
PROC: B24BZZ4 Ultrasonography of Heart with Aorta, Transesophageal (ICD-10-PCS; 2019-04-11)
PROC: 4A133B1 Monitoring of Arterial Pressure, Peripheral, Percutaneous Approach (ICD-10-PCS; 2019-04-11)
PROC: 4A133J1 Monitoring of Arterial Pulse, Peripheral, Percutaneous Approach (ICD-10-PCS; 2019-04-11)
PROC: 02100Z8 Bypass Coronary Artery, One Artery from Right Internal Mammary, Open Approach (ICD-10-PCS; principal; 2019-04-11 06:42)
PROC: 3E02340 Introduction of Influenza Vaccine into Muscle, Percutaneous Approach (ICD-10-PCS; 2019-04-14)
PROC: 3E0234Z Introduction of Serum, Toxoid and Vaccine into Muscle, Percutaneous Approach (ICD-10-PCS; 2019-04-14)
DX: I21.4 Non-ST elevation (NSTEMI) myocardial infarction (principal); I50.33 Acute on chronic diastolic (congestive) heart failure; N17.0 Acute kidney failure with tubular necrosis; J15.1 Pneumonia due to Pseudomonas; I13.0 Hypertensive heart and chronic kidney disease with heart failure and stage 1 through stage 4 chronic kidney disease, or unspecified chronic kidney disease; I25.810 Atherosclerosis of coronary artery bypass graft(s) without angina pectoris; J44.9 Chronic obstructive pulmonary disease, unspecified; E78.5 Hyperlipidemia, unspecified; K21.9 Gastro-esophageal reflux disease without esophagitis; M19.90 Unspecified osteoarthritis, unspecified site; I25.110 Atherosclerotic heart disease of native coronary artery with unstable angina pectoris; F17.200 Nicotine dependence, unspecified, uncomplicated; N18.9 Chronic kidney disease, unspecified; I45.10 Unspecified right bundle-branch block; R94.31 Abnormal electrocardiogram [ECG] [EKG]; I48.91 Unspecified atrial fibrillation; I25.2 Old myocardial infarction; Z78.1 Physical restraint status; Z98.61 Coronary angioplasty status; Z79.82 Long term (current) use of aspirin; Z79.899 Other long term (current) drug therapy; Z23 Encounter for immunization
CPT/HCPCS: 0232T; 93312; 93325; 93459; 96374; 99285; 36415; 36600; 71045; 71275; 76937; 80048; 80053; 81001; 81003; 82330; 82435; 82803; 82947; 82948; 83036; 83735; 84100; 84132; 84153; 84154; 84295; 84484; 85018; 85025; 85347; 85384; 85610; 85730; 86885; 86900; 86901; 86920; 87070; 87077; 87081; 87186; 92508; 92616; 93005; 93880; 93970; 94002; 94060; 94640; 94667; 94668; 94760; 97110; 97116; 97161; 97530; 99152; 99153; A4615; A4618; A6258; A6402; A6449; A7000; A7048; C1713; C1751; C1769; C9113; G0378; J0360; J0690; J0780; J1100; J1250; J1630; J1644; J1815; J1940; J1956; J2001; J2060; J2250; J2270; J2370; J2405; J2440; J2704; J2795; J3010; J3246; J3370; J3475; J3480; J3486; J3490; J7030; J7040; J7050; J7060; J7120; J7626; P9045; Q2037; Q9967

== ENCOUNTER 2019-06-21 11:59 | Inpatient (IN) | payer OTHER ==
[~2019-06-21] VITALS: Ht 193 cm; Wt 100.5 kg
[~2019-06-21 11:59] MED LIST changes: +LISI-600 PO; -LISI1TAB28 PO
[2019-06-21 12:44] LABS: BASOPHILS # (AUTO) 0.1 X10'3 (0-0.2); BASOPHILS % (AUTO) 0.9 % (0-1); EOSINOPHILS # (AUTO) 0.1 X10'3 (0-0.9); HEMATOCRIT 32.7 % (42.0-52.0); HEMOGLOBIN 10.6 g/dl (14.0-17.9); LYMPHOCYTES # (AUTO) 0.8 X10'3 (1.1-4.8); LYMPHOCYTES % (AUTO) 9.3 % (21-51); MEAN CORPUSCULAR HEMOGLOBIN 29.7 PG (27.0-31.0); MEAN CORPUSCULAR HGB CONC 32.4 g/dL (33.0-36.5); MEAN CORPUSCULAR VOLUME 91.7 FL (78-98); MEAN PLATELET VOLUME 7.3 FL (7.4-10.4); MONOCYTES # (AUTO) 0.5 X10'3 (0-0.9); MONOCYTES % (AUTO) 5.7 % (2-12); NEUTROPHILS # (AUTO) 7.3 X10'3 (1.8-7.7); NEUTROPHILS % (AUTO) 83.1 % (42-75); PLATELET COUNT 330 X10'3 (140-440); RED BLOOD COUNT 3.57 X10'6 (4.70-6.10); RED CELL DISTRIBUTION WIDTH 16.1 % (11.5-14.5); WHITE BLOOD COUNT 8.8 X10'3 (4.5-11.0)
[2019-06-21 12:51] LABS: ALANINE AMINOTRANSFERASE 13 U/L (12-78); ALBUMIN/GLOBULIN RATIO 0.7 (1.1-1.5); ALKALINE PHOSPHATASE 108 IU/L (46-116); ANION GAP 12 (8-16); ASPARTATE AMINO TRANSFERASE 31 U/L (10-37); BILIRUBIN,TOTAL 0.3 MG/DL (0.1-1.0); BLOOD UREA NITROGEN 15 MG/DL (7-18); BUN/CREATININE RATIO 7.4 (5.4-32.0); CALCIUM 8.6 MG/DL (8.5-10.1); CHLORIDE 102 MMOL/L (99-107); CREATININE 2.04 MG/DL (0.60-1.10); GLUCOSE 169 MG/DL (70-104); POTASSIUM 4.2 MMOL/L (3.5-5.1); SODIUM 141 MMOL/L (135-145); TOTAL CARBON DIOXIDE 27.2 MMOL/L (24-32); TOTAL PROTEIN 7.2 G/DL (6.4-8.2); eGFR 32 ML/MIN
--- NOTE | 2019-06-21 12:57 | NUR ---
critical value troponin 2.68
[2019-06-21] MEDS ORDERED: heparin 10,000 units/1 ML INJ IV ONE ×2 (13:15→13:35)
[2019-06-21] MEDS ORDERED: furosemide 10 MG/1 ML 10ml inj IV ONE (13:15)
[2019-06-21] MEDS ORDERED: heparin 10,000 units/1 ML INJ IV PRN (13:15)
[2019-06-21 13:38] LABS: PARTIAL THROMBOPLASTIN TIME 28 SECONDS (22-32)
[2019-06-21] MEDS ORDERED: potassium CL 10mEq/100ml bag 100 ML IV PRN ×2 (13:50)
[2019-06-21] MEDS ORDERED: magnesium 2GM in 50ml NS 50 ML IV PRN (13:50)
[2019-06-21] MEDS ORDERED: acetaminophen 325mg tablet PO PRN (13:50)
[2019-06-21] MEDS ORDERED: magnesium 4gm in 100ml NS 100 ML IV PRN (13:50)
[2019-06-21] MEDS ORDERED: potassium Cl 20 mEq SR tablet PO PRN (13:50)
[2019-06-21] MEDS: heparin 25,000 UNIT/250ml bag 250 ML IV SCH (13:56)
[2019-06-21] MEDS ORDERED: CLOP75TA33 PO (14:27)
[2019-06-21 14:30] VITALS: BP 137/78
--- NOTE | 2019-06-21 14:40 | NUR ---
Patient admitted to PCU 3021 from ED, brought up by leonie, ambulated to bed w/ Oxygen @ 2L, tucked into bed and oriented to room, will continue to monitor.
--- NOTE | 2019-06-21 15:10 | NUR ---
PAGER ID: [phone] MESSAGE: [phone] LEONID VAGALED DOWN TO 43 HR WHILE HAVING BM. NOW BACK TO 110 HR. FOREST FONTANA
--- NOTE | 2019-06-21 15:19 | NUR ---
PAGER ID: [phone] MESSAGE: [phone] PCDimitris JAQUEZ. VAGALED DOWN TO 43HR WHILE HAVING BM. HR NOW BACK TO 110. FOREST FONTANA
[2019-06-21] MEDS ORDERED: PENT400T17 PO (16:29)
[2019-06-21] MEDS ORDERED: CITA20TA28 PO (16:29)
[2019-06-21] MEDS ORDERED: DOCU100C40 PO (16:29)
[2019-06-21] MEDS ORDERED: ALBU18HF2 INH (16:29)
[2019-06-21] MEDS ORDERED: METO-411 PO (16:29)
[2019-06-21] MEDS ORDERED: POTA-82 PO (16:29)
--- NOTE | 2019-06-21 17:57 | NUR ---
PAGER ID: [phone] MESSAGE: [phone] Misael Villavicencio: FYTrisha Patient occasionally has episodes of sinus bradycardia reaching low 40's then goes back up to sinus rhythm in 90's-100's. Pt is asymptomatic. Thanks Nyla
[2019-06-21 18:00] VITALS: BP 140/82
--- NOTE | 2019-06-21 18:10 | NUR ---
Patient in room PCU 3021. I have received report from LACY Hull and had the opportunity to ask questions and assume patient care.
--- NOTE | 2019-06-21 18:30 | NUR ---
Patient in room PCU 3021. I have received report from LACY Saucedo and had the opportunity to ask questions and assume patient care.
--- NOTE | 2019-06-21 18:41 | NUR ---
Problems reprioritized. Patient report given, questions answered & plan of care reviewed with Temitope HOUSE.
[2019-06-21] MEDS: K and/or MAG REPLACEMENT MC SCH (19:24)
[2019-06-21] MEDS ORDERED: heparin, porcine 5000 units/ml vial SQ SCH (20:00)
[2019-06-21] MEDS ORDERED: clopidogrel 75mg tablet PO SCH (20:30)
[2019-06-21] MEDS ORDERED: albuterol 2.5 MG/3 ML nebule NEB PRN (20:36)
[2019-06-21] MEDS: ipratropium/albuterol 3ml nebule NEB SCH (21:00)
[2019-06-21] MEDS: clopidogrel 75mg tablet PO SCH (21:17)
[2019-06-21] MEDS: lisinopril 20mg tablet PO SCH (21:18)
[2019-06-21 22:00] VITALS: BP 141/90
--- NOTE | 2019-06-22 00:31 | NUR ---
notified for troponin 2.46. no new orders at this time. 12HR EKG was bought down to be looked at and signed by doctor as well.
[2019-06-22 00:43] LABS: BASOPHILS # (AUTO) 0.1 X10'3 (0-0.2); BASOPHILS % (AUTO) 0.6 % (0-1); EOSINOPHILS % (AUTO) 0.4 % (0-6); HEMATOCRIT 31.9 % (42.0-52.0); HEMOGLOBIN 10.4 g/dl (14.0-17.9); LYMPHOCYTES # (AUTO) 1.2 X10'3 (1.1-4.8); LYMPHOCYTES % (AUTO) 10.6 % (21-51); MEAN CORPUSCULAR HGB CONC 32.7 g/dL (33.0-36.5); MEAN CORPUSCULAR VOLUME 91.8 FL (78-98); MEAN PLATELET VOLUME 7.6 FL (7.4-10.4); MONOCYTES # (AUTO) 0.7 X10'3 (0-0.9); NEUTROPHILS # (AUTO) 9.5 X10'3 (1.8-7.7); NEUTROPHILS % (AUTO) 82.4 % (42-75); PLATELET COUNT 301 X10'3 (140-440); RED BLOOD COUNT 3.47 X10'6 (4.70-6.10); RED CELL DISTRIBUTION WIDTH 16.1 % (11.5-14.5); WHITE BLOOD COUNT 11.5 X10'3 (4.5-11.0)
[2019-06-22 00:56] LABS: ANION GAP 10 (8-16); BLOOD UREA NITROGEN 19 MG/DL (7-18); BUN/CREATININE RATIO 10.3 (5.4-32.0); CALCIUM 8.5 MG/DL (8.5-10.1); CHLORIDE 100 MMOL/L (99-107); CREATININE 1.85 MG/DL (0.60-1.10); GLUCOSE 131 MG/DL (70-104); MAGNESIUM 1.4 MG/DL (1.5-2.4); POTASSIUM 4.4 MMOL/L (3.5-5.1); SODIUM 138 MMOL/L (135-145); TOTAL CARBON DIOXIDE 28.4 MMOL/L (24-32); eGFR 36 ML/MIN
[2019-06-22] MEDS: ipratropium/albuterol 3ml nebule NEB SCH ×3 (01:25→20:17)
--- NOTE | 2019-06-22 01:46 | NUR ---
MD called and notified for SOB and crackles, and no lasix was scheduled for date night sitter, but patient was given 80mg lasix in ER. Creatinine of 2.04. MD said to give now Lasix 80mg IV once.
[2019-06-22] MEDS ORDERED: furosemide 10 MG/1 ML 10ml inj IV ONE ×2 (01:50→12:00)
[2019-06-22 02:00] VITALS: BP 137/80
[2019-06-22] MEDS ORDERED: albuterol 2.5 MG/3 ML nebule NEB SCH (02:00)
--- NOTE | 2019-06-22 06:28 | NUR ---
Problems reprioritized. Patient report given, questions answered & plan of care reviewed with LACY Fernández.
[2019-06-22 07:00] VITALS: BP 150/90
--- NOTE | 2019-06-22 07:35 | NUR ---
Patient in room PCU 3021. I have received report from Temitope HOUSE and had the opportunity to ask questions and assume patient care.
[2019-06-22] MEDS: K and/or MAG REPLACEMENT MC SCH ×2 (08:00→20:00)
[2019-06-22] MEDS: budesonide 0.5mg/2ml UD nebule IH SCH ×2 (08:00→20:17)
--- NOTE | 2019-06-22 08:17 | NUR ---
PAGER ID: [phone] MESSAGE: [phone] Misael Villavicencio, mag 1.4, can I have replacement orders? Jolene HOUSE [phone]
[2019-06-22] MEDS: metoprolol succinate 25mg (24-HOUR) SR. Tablet PO SCH (08:22)
[2019-06-22] MEDS: pantoprazole 40mg Tablet.DR PO SCH (08:23)
[2019-06-22] MEDS: aspirin 81mg tablet.DR PO SCH (08:23)
[2019-06-22] MEDS: potassium Cl 20 mEq SR tablet PO SCH (08:23)
[2019-06-22] MEDS: docusate sod 100mg capsule PO SCH ×2 (08:25→20:00)
[2019-06-22] MEDS: clopidogrel 75mg tablet PO SCH (08:25)
[2019-06-22] MEDS: citalopram 20mg tablet PO SCH (08:25)
[2019-06-22] MEDS: atorvastatin 20mg tablet PO SCH (08:27)
[2019-06-22 11:00] VITALS: BP 154/94
[2019-06-22] MEDS ORDERED: ipratropium/albuterol 3ml nebule NEB PRN (12:05)
[2019-06-22] MEDS: magnesium Cl slow-release 64mg tablet PO PRN ×2 (12:07→20:09)
[2019-06-22] MEDS: ondansetron/PF 4mg/2ml inj IV PRN (12:08)
[2019-06-22] MEDS: heparin 25,000 UNIT/250ml bag 250 ML IV SCH (13:18)
[2019-06-22 15:00] VITALS: BP 133/84
[2019-06-22 18:00] VITALS: BP 125/71
--- NOTE | 2019-06-22 18:04 | NUR ---
Patient eating dinner, stated the lasix 80 mg that was administered was helpful. Patients WOB has decreased also. Will continue to monitor closely.
--- NOTE | 2019-06-22 18:30 | NUR ---
Patient in room PCU 3021. I have received report from Jolene HOUSE and Priscila HOUSE and had the opportunity to ask questions and assume patient care.
--- NOTE | 2019-06-22 18:30 | NUR ---
Problems reprioritized. Patient report given, questions answered & plan of care reviewed with Nhi HOUSE.
[2019-06-22] MEDS: lisinopril 20mg tablet PO SCH (20:10)
[2019-06-22] MEDS: furosemide 40mg/4ml inj IV SCH (20:11)
[2019-06-22 22:00] VITALS: BP 127/69
--- NOTE | 2019-06-22 22:43 | NUR ---
Cardiac PTT came back 50, which is therapeutic, heparin GTT will continue to run at 1000, will continue to monitor pt
[2019-06-23 02:00] VITALS: BP 117/69
[2019-06-23] MEDS: ipratropium/albuterol 3ml nebule NEB SCH ×4 (02:44→20:42)
[2019-06-23 04:46] LABS: BASOPHILS % (AUTO) 0.6 % (0-1); EOSINOPHILS # (AUTO) 0.1 X10'3 (0-0.9); EOSINOPHILS % (AUTO) 1.7 % (0-6); HEMOGLOBIN 10.3 g/dl (14.0-17.9); LYMPHOCYTES # (AUTO) 1.3 X10'3 (1.1-4.8); LYMPHOCYTES % (AUTO) 15.4 % (21-51); MEAN CORPUSCULAR HEMOGLOBIN 29.7 PG (27.0-31.0); MEAN CORPUSCULAR HGB CONC 32.3 g/dL (33.0-36.5); MEAN PLATELET VOLUME 7.5 FL (7.4-10.4); MONOCYTES # (AUTO) 0.5 X10'3 (0-0.9); MONOCYTES % (AUTO) 6.7 % (2-12); NEUTROPHILS # (AUTO) 6.2 X10'3 (1.8-7.7); NEUTROPHILS % (AUTO) 75.6 % (42-75); PLATELET COUNT 291 X10'3 (140-440); RED BLOOD COUNT 3.47 X10'6 (4.70-6.10); RED CELL DISTRIBUTION WIDTH 15.7 % (11.5-14.5); WHITE BLOOD COUNT 8.2 X10'3 (4.5-11.0)
[2019-06-23 04:53] LABS: ALBUMIN 2.8 G/DL (3.4-5.0); ANION GAP 7 (8-16); BLOOD UREA NITROGEN 24 MG/DL (7-18); BUN/CREATININE RATIO 13.5 (5.4-32.0); CALCIUM 8.8 MG/DL (8.5-10.1); CHLORIDE 100 MMOL/L (99-107); CREATININE 1.78 MG/DL (0.60-1.10); GLUCOSE 101 MG/DL (70-104); MAGNESIUM 1.8 MG/DL (1.5-2.4); POTASSIUM 3.6 MMOL/L (3.5-5.1); SODIUM 139 MMOL/L (135-145); eGFR 37 ML/MIN
--- NOTE | 2019-06-23 05:00 | NUR ---
Cardiac PTT came back 47, which is therapeutic, heparin GTT will continue to run at 1000, will continue to monitor pt
--- NOTE | 2019-06-23 06:24 | NUR ---
Problems reprioritized. Patient report given, questions answered & plan of care reviewed with Jolene HOUSE and Priscila HOUSE.
[2019-06-23 07:00] VITALS: BP 130/67
[2019-06-23] MEDS: docusate sod 100mg capsule PO SCH ×2 (08:00→19:32)
[2019-06-23] MEDS: K and/or MAG REPLACEMENT MC SCH ×2 (08:00→20:00)
[2019-06-23] MEDS: furosemide 40mg/4ml inj IV SCH ×2 (08:13→19:32)
[2019-06-23] MEDS: atorvastatin 20mg tablet PO SCH (08:14)
[2019-06-23] MEDS: citalopram 20mg tablet PO SCH (08:14)
[2019-06-23] MEDS: potassium Cl 20 mEq SR tablet PO SCH (08:14)
[2019-06-23] MEDS: metoprolol succinate 25mg (24-HOUR) SR. Tablet PO SCH (08:14)
[2019-06-23] MEDS: pantoprazole 40mg Tablet.DR PO SCH (08:15)
[2019-06-23] MEDS: aspirin 81mg tablet.DR PO SCH (08:15)
[2019-06-23] MEDS: clopidogrel 75mg tablet PO SCH (08:15)
[2019-06-23] MEDS: budesonide 0.5mg/2ml UD nebule IH SCH ×2 (09:19→20:42)
[2019-06-23 11:00] VITALS: BP 110/59
--- NOTE | 2019-06-23 12:31 | NUR ---
Malnutrition consult: Pt admit w/ acute respiratory failure, CHF vs COPD exacerbation, EF 50-55% per echo results, bilateral pleural effusions, and type 2 NJ from demand ischemia per MD. Pt has no significant weakness, mild edema, current wt pt stated in no actual wt in wt hx on EMR though pt 107kg March admit this year. PO 50-75% avg meals so far fluctuating this admit. Appears well-developed/well-nourished per ER MD note. Given these in addition to unlikely any significant wt loss hx present pt does not meet minimum severe malnutrition criteria at this time. Will continue to monitor. Addendum: 06/23/19 at [address] Amended: Links added.
[2019-06-23 15:00] VITALS: BP 114/59
[2019-06-23] MEDS: heparin 25,000 UNIT/250ml bag 250 ML IV SCH (15:38)
--- NOTE | 2019-06-23 17:32 | NUR ---
Patients WOB has improved greatly since 06/21. Pt is on 2L via NC, RR even and unlabored at this time. Heparin gtt has continued at 1000 units/hr throughout shift as the PTT's have all been therapeutic. Last PTT is pending at this time. Will continue to monitor.
--- NOTE | 2019-06-23 18:35 | NUR ---
Patient in room PCU 3021. I have received report from Jolene Goodson and Jeannette GOODSON and had the opportunity to ask questions and assume patient care.
[2019-06-23 19:00] VITALS: BP 134/64
[2019-06-23] MEDS: lisinopril 20mg tablet PO SCH (21:26)
[2019-06-23 22:00] VITALS: BP 103/55
[2019-06-24] MEDS: Melatonin 3mg tablet PO PRN ×2 (00:24→21:49)
[2019-06-24] MEDS: ipratropium/albuterol 3ml nebule NEB SCH ×4 (02:15→20:19)
[2019-06-24 03:00] VITALS: BP 115/54
[2019-06-24 05:57] LABS: BASOPHILS # (AUTO) 0.1 X10'3 (0-0.2); BASOPHILS % (AUTO) 0.8 % (0-1); EOSINOPHILS # (AUTO) 0.2 X10'3 (0-0.9); EOSINOPHILS % (AUTO) 2.7 % (0-6); HEMATOCRIT 28.9 % (42.0-52.0); HEMOGLOBIN 9.6 g/dl (14.0-17.9); LYMPHOCYTES # (AUTO) 1.3 X10'3 (1.1-4.8); LYMPHOCYTES % (AUTO) 19.6 % (21-51); MEAN CORPUSCULAR HEMOGLOBIN 30.1 PG (27.0-31.0); MEAN CORPUSCULAR HGB CONC 33.1 g/dL (33.0-36.5); MEAN CORPUSCULAR VOLUME 90.8 FL (78-98); MEAN PLATELET VOLUME 7.6 FL (7.4-10.4); MONOCYTES # (AUTO) 0.6 X10'3 (0-0.9); MONOCYTES % (AUTO) 9.6 % (2-12); NEUTROPHILS # (AUTO) 4.5 X10'3 (1.8-7.7); NEUTROPHILS % (AUTO) 67.3 % (42-75); PLATELET COUNT 290 X10'3 (140-440); RED BLOOD COUNT 3.18 X10'6 (4.70-6.10); RED CELL DISTRIBUTION WIDTH 15.8 % (11.5-14.5); WHITE BLOOD COUNT 6.7 X10'3 (4.5-11.0)
[2019-06-24 06:15] LABS: ALBUMIN 2.4 G/DL (3.4-5.0); ANION GAP 5 (8-16); BLOOD UREA NITROGEN 22 MG/DL (7-18); BUN/CREATININE RATIO 13.1 (5.4-32.0); CALCIUM 8.9 MG/DL (8.5-10.1); CHLORIDE 99 MMOL/L (99-107); CREATININE 1.68 MG/DL (0.60-1.10); GLUCOSE 108 MG/DL (70-104); MAGNESIUM 1.7 MG/DL (1.5-2.4); POTASSIUM 3.2 MMOL/L (3.5-5.1); SODIUM 138 MMOL/L (135-145); TOTAL CARBON DIOXIDE 33.9 MMOL/L (24-32); eGFR 40 ML/MIN
--- NOTE | 2019-06-24 06:16 | NUR ---
Patient in room PCU 3021. I have received report from Nhi HOUSE and had the opportunity to ask questions and assume patient care.
--- NOTE | 2019-06-24 06:16 | NUR ---
Problems reprioritized. Patient report given, questions answered & plan of care reviewed with Elly HOUSE.
--- NOTE | 2019-06-24 06:25 | NUR ---
Critical ptt of 129, notified Dr Vegas and stopped the pts heparin gtt. Will continue to monitor closely.
[2019-06-24 07:00] VITALS: BP 126/64
[2019-06-24] MEDS: furosemide 40mg/4ml inj IV SCH ×2 (07:42→20:10)
[2019-06-24] MEDS: clopidogrel 75mg tablet PO SCH (07:43)
[2019-06-24] MEDS: pantoprazole 40mg Tablet.DR PO SCH (07:43)
[2019-06-24] MEDS: metoprolol succinate 25mg (24-HOUR) SR. Tablet PO SCH (07:43)
[2019-06-24] MEDS: citalopram 20mg tablet PO SCH (07:44)
[2019-06-24] MEDS: potassium Cl 20 mEq SR tablet PO SCH (07:44)
[2019-06-24] MEDS: atorvastatin 20mg tablet PO SCH (07:44)
[2019-06-24] MEDS: potassium Cl 20 mEq SR tablet PO PRN ×2 (07:45→12:39)
[2019-06-24] MEDS: aspirin 81mg tablet.DR PO SCH (07:51)
[2019-06-24] MEDS: docusate sod 100mg capsule PO SCH ×2 (07:51→20:12)
[2019-06-24] MEDS: K and/or MAG REPLACEMENT MC SCH ×4 (08:00→20:00)
[2019-06-24] MEDS: budesonide 0.5mg/2ml UD nebule IH SCH ×2 (08:15→20:18)
[2019-06-24] MEDS: heparin 25,000 UNIT/250ml bag 250 ML IV SCH (08:37)
--- NOTE | 2019-06-24 09:44 | NUR ---
Spoke with Dr Winters, received verbal orders to discontinue the heparin gtt once the patient has been on it for 48 hours. First started on the heparin gtt on 06/20. Will discontinue the drip and continue to monitor the patient closely.
[2019-06-24 11:00] VITALS: BP 109/69
--- NOTE | 2019-06-24 13:18 | NUR ---
Received notice to make post discharge apt for this patient, patient not being discharged today, will pass this along in report and will continue to monitor closely.
[2019-06-24 15:00] VITALS: BP 121/61
--- NOTE | 2019-06-24 15:17 | NUR ---
Sent a page to Dr Singh santos PAGER ID: [phone] MESSAGE: Elly HOUSE [phone] T Saud, is it okay if I re-order the K+/mag replacement protocol on this patient? thanks!
--- NOTE | 2019-06-24 16:19 | NUR ---
PAGER ID: [phone] MESSAGE: DR. MADISON, [id number]/LEONID, K+ 3.2 TODAY, MG+ 1.7(WAS 1.4 TWO DAYS AGO).REPLACEMENT TODAY AT 1349. CAN WE HAVE NEW ORDERS PLEASE? SONG [id number]. TY
[2019-06-24] MEDS ORDERED: potassium Cl 20 mEq SR tablet PO PRN ×2 (16:40)
[2019-06-24] MEDS ORDERED: potassium CL 10mEq/100ml bag 100 ML IV PRN (16:40)
[2019-06-24 18:00] VITALS: BP 119/63
--- NOTE | 2019-06-24 18:17 | NUR ---
Problems reprioritized. Patient report given, questions answered & plan of care reviewed with Alessandra HOUSE.
--- NOTE | 2019-06-24 18:17 | NUR ---
Orientee documentation: I have reviewed and agree with all interventions, assessments performed and documented by Priscila HOUSE.
--- NOTE | 2019-06-24 18:38 | NUR ---
Patient in room PCU 3021. I have received report from Elly HOUSE & Priscila HOUSE and had the opportunity to ask questions and assume patient care.
[2019-06-24] MEDS: lisinopril 20mg tablet PO SCH (20:11)
[2019-06-24 22:00] VITALS: BP 119/65
[2019-06-25] VITALS (7 sets, daily range): BP systolic 111–130; BP diastolic 52–88
[2019-06-25] MEDS: ipratropium/albuterol 3ml nebule NEB SCH ×4 (03:09→20:13)
[2019-06-25 05:53] LABS: BASOPHILS % (AUTO) 0.7 % (0-1); EOSINOPHILS # (AUTO) 0.3 X10'3 (0-0.9); EOSINOPHILS % (AUTO) 4.2 % (0-6); HEMATOCRIT 30.1 % (42.0-52.0); HEMOGLOBIN 9.9 g/dl (14.0-17.9); LYMPHOCYTES # (AUTO) 1.1 X10'3 (1.1-4.8); MEAN CORPUSCULAR HEMOGLOBIN 29.5 PG (27.0-31.0); MEAN CORPUSCULAR HGB CONC 32.8 g/dL (33.0-36.5); MEAN CORPUSCULAR VOLUME 89.9 FL (78-98); MEAN PLATELET VOLUME 8.2 FL (7.4-10.4); MONOCYTES # (AUTO) 0.7 X10'3 (0-0.9); NEUTROPHILS # (AUTO) 4.6 X10'3 (1.8-7.7); NEUTROPHILS % (AUTO) 68.1 % (42-75); PLATELET COUNT 301 X10'3 (140-440); RED BLOOD COUNT 3.35 X10'6 (4.70-6.10); WHITE BLOOD COUNT 6.8 X10'3 (4.5-11.0)
[2019-06-25 06:23] LABS: ALBUMIN 2.5 G/DL (3.4-5.0); ANION GAP 5 (8-16); BLOOD UREA NITROGEN 18 MG/DL (7-18); BUN/CREATININE RATIO 11.5 (5.4-32.0); CHLORIDE 100 MMOL/L (99-107); CREATININE 1.57 MG/DL (0.60-1.10); GLUCOSE 112 MG/DL (70-104); MAGNESIUM 1.7 MG/DL (1.5-2.4); POTASSIUM 3.8 MMOL/L (3.5-5.1); SODIUM 137 MMOL/L (135-145); TOTAL CARBON DIOXIDE 32.1 MMOL/L (24-32); eGFR 43 ML/MIN
--- NOTE | 2019-06-25 06:25 | NUR ---
Problems reprioritized. Patient report given, questions answered & plan of care reviewed with Neda HOUSE.
--- NOTE | 2019-06-25 06:45 | NUR ---
Patient in room PCU 3021A. I have received report from Alessandra HOUSE and Юлия HOUSE and had the opportunity to ask questions and assume patient care.
[2019-06-25] MEDS: potassium Cl 20 mEq SR tablet PO SCH (07:32)
[2019-06-25] MEDS: docusate sod 100mg capsule PO SCH ×2 (07:32→20:34)
[2019-06-25] MEDS: pantoprazole 40mg Tablet.DR PO SCH (07:32)
[2019-06-25] MEDS: atorvastatin 20mg tablet PO SCH (07:32)
[2019-06-25] MEDS: furosemide 40mg/4ml inj IV SCH ×2 (07:33→20:32)
[2019-06-25] MEDS: metoprolol succinate 25mg (24-HOUR) SR. Tablet PO SCH (07:33)
[2019-06-25] MEDS: citalopram 20mg tablet PO SCH (07:33)
[2019-06-25] MEDS: K and/or MAG REPLACEMENT MC SCH ×4 (07:39→20:00)
[2019-06-25] MEDS: clopidogrel 75mg tablet PO SCH (07:39)
[2019-06-25] MEDS: aspirin 81mg tablet.DR PO SCH (07:39)
[2019-06-25] MEDS: budesonide 0.5mg/2ml UD nebule IH SCH ×2 (09:07→20:13)
--- NOTE | 2019-06-25 09:59 | NUR ---
Bilat Decub CXR did not show enough fluid for Thoracentesis per Dr Hernandez Floor Nurse informed
[2019-06-25] MEDS ORDERED: FLU VACC QS2019-20 36MOS UP/PF 60 MCG/0.5 ML SYRINGE IMVAC ONE (10:00)
--- NOTE | 2019-06-25 18:30 | NUR ---
Problems reprioritized. Patient report given, questions answered & plan of care reviewed with Mitzy HOUSE.
[2019-06-25] MEDS: lisinopril 20mg tablet PO SCH (20:33)
[2019-06-26 02:00] VITALS: BP 121/65
[2019-06-26] MEDS: ipratropium/albuterol 3ml nebule NEB SCH ×4 (02:45→21:12)
[2019-06-26 05:38] LABS: BASOPHILS # (AUTO) 0.1 X10'3 (0-0.2); BASOPHILS % (AUTO) 0.9 % (0-1); EOSINOPHILS # (AUTO) 0.3 X10'3 (0-0.9); HEMATOCRIT 32.6 % (42.0-52.0); HEMOGLOBIN 10.7 g/dl (14.0-17.9); LYMPHOCYTES # (AUTO) 1.3 X10'3 (1.1-4.8); MEAN CORPUSCULAR HEMOGLOBIN 29.6 PG (27.0-31.0); MEAN CORPUSCULAR HGB CONC 32.7 g/dL (33.0-36.5); MEAN CORPUSCULAR VOLUME 90.5 FL (78-98); MEAN PLATELET VOLUME 7.6 FL (7.4-10.4); MONOCYTES # (AUTO) 0.6 X10'3 (0-0.9); MONOCYTES % (AUTO) 7.8 % (2-12); NEUTROPHILS # (AUTO) 5.7 X10'3 (1.8-7.7); NEUTROPHILS % (AUTO) 71.3 % (42-75); PLATELET COUNT 320 X10'3 (140-440); RED BLOOD COUNT 3.61 X10'6 (4.70-6.10); RED CELL DISTRIBUTION WIDTH 16.1 % (11.5-14.5); WHITE BLOOD COUNT 7.9 X10'3 (4.5-11.0)
[2019-06-26 05:42] LABS: ALBUMIN 2.7 G/DL (3.4-5.0); ANION GAP 6 (8-16); BLOOD UREA NITROGEN 16 MG/DL (7-18); BUN/CREATININE RATIO 10.5 (5.4-32.0); CALCIUM 9.4 MG/DL (8.5-10.1); CHLORIDE 99 MMOL/L (99-107); CREATININE 1.52 MG/DL (0.60-1.10); GLUCOSE 119 MG/DL (70-104); MAGNESIUM 1.7 MG/DL (1.5-2.4); POTASSIUM 3.9 MMOL/L (3.5-5.1); SODIUM 137 MMOL/L (135-145); TOTAL CARBON DIOXIDE 32.4 MMOL/L (24-32); eGFR 45 ML/MIN
--- NOTE | 2019-06-26 06:36 | NUR ---
Patient in room PCU 3021. I have received report from LACY Forrester and had the opportunity to ask questions and assume patient care. Patient asleep in bed and in no acute distress.
[2019-06-26 07:00] VITALS: BP 106/56
[2019-06-26] MEDS: docusate sod 100mg capsule PO SCH ×2 (07:33→20:47)
[2019-06-26] MEDS: clopidogrel 75mg tablet PO SCH (07:33)
[2019-06-26] MEDS: metoprolol succinate 25mg (24-HOUR) SR. Tablet PO SCH (07:33)
[2019-06-26] MEDS: pantoprazole 40mg Tablet.DR PO SCH (07:34)
[2019-06-26] MEDS: potassium Cl 20 mEq SR tablet PO SCH (07:34)
[2019-06-26] MEDS: citalopram 20mg tablet PO SCH (07:35)
[2019-06-26] MEDS: aspirin 81mg tablet.DR PO SCH (07:35)
[2019-06-26] MEDS: atorvastatin 20mg tablet PO SCH (07:35)
[2019-06-26] MEDS: furosemide 40mg/4ml inj IV SCH ×2 (07:36→20:47)
[2019-06-26] MEDS: K and/or MAG REPLACEMENT MC SCH ×4 (07:38→20:00)
[2019-06-26] MEDS: budesonide 0.5mg/2ml UD nebule IH SCH ×2 (08:35→21:12)
[2019-06-26 11:00] VITALS: BP 120/60
--- NOTE | 2019-06-26 12:32 | NUR ---
Initial: Pt PO improving to 75/100% avg heart healthy meals past 1.5 days up from 50-75% fluctuating avg initially. Admit w/ acute respiratory failure, CHF vs COPD exacerbation, EF 50-55% per echo results, bilateral pleural effusions IR consulted for thoracentesis, and type 2 PA from demand ischemia per MD. LBM 06/21 receiving routine colace; RD d/w RN regarding additional bowel care per MD approval. RN reports pt claimed one small BM 06/24 but mostly gas. Constipation to impact PO as well. Will continue to monitor. Rec: 1. continue heart healthy diet 2. routine bowel care; consider additional IF continued constipation and MD agreeable 3. wt per rx Addendum: 06/26/19 at [address] Amended: Links added.
[2019-06-26 15:00] VITALS: BP 111/70
[2019-06-26 18:00] VITALS: BP 100/64
--- NOTE | 2019-06-26 18:21 | NUR ---
Problems reprioritized. Patient report given, questions answered & plan of care reviewed with LACY Handy. Patient stable at transfer of care.
--- NOTE | 2019-06-26 18:21 | NUR ---
Patient in room PCU 3021. I have received report from LACY Hutchison and had the opportunity to ask questions and assume patient care. Patient denies CP, SOB, dizziness, n/v and rated pain 0/10. Will page dr Fernandez to get order for milk of mg. Patient's last LBM was 06/21
[2019-06-26] MEDS ORDERED: magnesium hydroxide 30ml (MOM) UD suspension PO ONE (20:10)
[2019-06-26] MEDS: lisinopril 20mg tablet PO SCH (20:47)
[2019-06-26] MEDS: Melatonin 3mg tablet PO PRN (21:10)
[2019-06-26 22:00] VITALS: BP 91/52
[2019-06-27] VITALS (11 sets, daily range): BP systolic 70–121; BP diastolic 46–63
[2019-06-27] MEDS: ipratropium/albuterol 3ml nebule NEB SCH ×4 (02:37→20:47)
--- NOTE | 2019-06-27 06:28 | NUR ---
Patient in room PCU 3021. I have received report from LACY Handy and had the opportunity to ask questions and assume patient care. Patient awake in bed and in no acute distress.
--- NOTE | 2019-06-27 06:30 | NUR ---
Problems reprioritized. Patient report given, questions answered & plan of care reviewed with LACY Hutchison. Patient stable at shift change
[2019-06-27] MEDS: furosemide 40mg/4ml inj IV SCH (07:26)
[2019-06-27] MEDS: docusate sod 100mg capsule PO SCH ×2 (07:27→20:14)
[2019-06-27] MEDS: atorvastatin 20mg tablet PO SCH (07:28)
[2019-06-27] MEDS: clopidogrel 75mg tablet PO SCH (07:28)
[2019-06-27] MEDS: pantoprazole 40mg Tablet.DR PO SCH (07:28)
[2019-06-27] MEDS: citalopram 20mg tablet PO SCH (07:29)
[2019-06-27] MEDS: metoprolol succinate 25mg (24-HOUR) SR. Tablet PO SCH (07:29)
[2019-06-27] MEDS: aspirin 81mg tablet.DR PO SCH (07:29)
[2019-06-27] MEDS: K and/or MAG REPLACEMENT MC SCH ×4 (07:30→20:00)
[2019-06-27] MEDS: potassium Cl 20 mEq SR tablet PO SCH (07:30)
[2019-06-27] MEDS: budesonide 0.5mg/2ml UD nebule IH SCH ×2 (08:17→20:47)
--- NOTE | 2019-06-27 10:13 | NUR ---
Paged Dr. Winters regarding patient's BP dropping and patient still short of breath. Patient's O2 saturation 95% on room air. PAGER ID: [phone] MESSAGE: [phone]. Misael Villavicencio. Patient BP sitting 103/63, standing 70/46 with PT. BP dropped and patient still short of breath. O2 95% on room air.
--- NOTE | 2019-06-27 18:07 | NUR ---
Problems reprioritized. Patient report given, questions answered & plan of care reviewed with LACY Linn. Patient stable at transfer of care.
--- NOTE | 2019-06-27 18:08 | NUR ---
Patient in room PCU 3021. I have received report from LACY Hutchison and had the opportunity to ask questions and assume patient care.
[2019-06-27] MEDS: lisinopril 20mg tablet PO SCH (20:13)
[2019-06-28] VITALS (7 sets, daily range): BP systolic 103–135; BP diastolic 51–65
[2019-06-28] MEDS: ipratropium/albuterol 3ml nebule NEB SCH ×4 (03:37→20:32)
--- NOTE | 2019-06-28 06:17 | NUR ---
Problems reprioritized. Patient report given, questions answered & plan of care reviewed with LACY Roper.
--- NOTE | 2019-06-28 06:17 | NUR ---
Patient in room PCU 3021. I have received report from Temitope HOUSE and had the opportunity to ask questions and assume patient care.
[2019-06-28 06:32] LABS: MAGNESIUM 1.9 MG/DL (1.5-2.4); POTASSIUM 3.9 MMOL/L (3.5-5.1)
[2019-06-28] MEDS: clopidogrel 75mg tablet PO SCH (07:56)
[2019-06-28] MEDS: citalopram 20mg tablet PO SCH (07:56)
[2019-06-28] MEDS: docusate sod 100mg capsule PO SCH ×2 (07:56→20:24)
[2019-06-28] MEDS: atorvastatin 20mg tablet PO SCH (07:56)
[2019-06-28] MEDS: aspirin 81mg tablet.DR PO SCH (07:56)
[2019-06-28] MEDS: pantoprazole 40mg Tablet.DR PO SCH (07:56)
[2019-06-28] MEDS: furosemide 40mg tablet PO SCH (07:59)
[2019-06-28] MEDS: K and/or MAG REPLACEMENT MC SCH ×4 (08:00→20:00)
[2019-06-28] MEDS: metoprolol succinate 25mg (24-HOUR) SR. Tablet PO SCH (08:00)
[2019-06-28] MEDS: potassium Cl 20 mEq SR tablet PO SCH (08:02)
[2019-06-28] MEDS: budesonide 0.5mg/2ml UD nebule IH SCH ×2 (08:29→20:32)
--- NOTE | 2019-06-28 10:18 | NUR ---
I spoke to Dr. Winters about patient orthostatic vitals and feeling dizzy when standing and not walking with PT. I told him I gave the lasix but not metoprolol, he said to decrease to day's dose to 25mg instead of 50mg.
[2019-06-28] MEDS ORDERED: metoprolol tartrate 25mg tablet PO ONE (10:20)
--- NOTE | 2019-06-28 18:12 | NUR ---
Patient in room PCU 3021. I have received report from LACY Roper and had the opportunity to ask questions and assume patient care.
[2019-06-28] MEDS: lisinopril 20mg tablet PO SCH (20:24)
[2019-06-28] MEDS: Melatonin 3mg tablet PO PRN (22:30)
[2019-06-29 02:00] VITALS: BP 121/55
[2019-06-29] MEDS: ipratropium/albuterol 3ml nebule NEB SCH ×4 (03:19→21:05)
[2019-06-29 06:00] VITALS: BP 139/63
--- NOTE | 2019-06-29 06:19 | NUR ---
Problems reprioritized. Patient report given, questions answered & plan of care reviewed with Elly Rene RN.
--- NOTE | 2019-06-29 06:20 | NUR ---
Patient in room PCU 3021. I have received report from Temitope HOUSE and had the opportunity to ask questions and assume patient care.
[2019-06-29] MEDS: docusate sod 100mg capsule PO SCH ×2 (07:35→20:50)
[2019-06-29] MEDS: atorvastatin 20mg tablet PO SCH (07:35)
[2019-06-29] MEDS: citalopram 20mg tablet PO SCH (07:35)
[2019-06-29] MEDS: pantoprazole 40mg Tablet.DR PO SCH (07:35)
[2019-06-29] MEDS: clopidogrel 75mg tablet PO SCH (07:35)
[2019-06-29] MEDS: potassium Cl 20 mEq SR tablet PO SCH (07:35)
[2019-06-29] MEDS: metoprolol succinate 25mg (24-HOUR) SR. Tablet PO SCH ×2 (07:36→12:05)
[2019-06-29] MEDS: aspirin 81mg tablet.DR PO SCH (07:36)
[2019-06-29] MEDS: furosemide 40mg tablet PO SCH (07:39)
[2019-06-29] MEDS: K and/or MAG REPLACEMENT MC SCH ×4 (07:42→20:00)
--- NOTE | 2019-06-29 08:07 | NUR ---
Sent a page to Dr Singh santos PAGER ID: [phone] MESSAGE: Elly HOUSE [phone]aud, pt had a 40 seconds run SVT when working with PT, HR in 170s, SBP 86. Pt asymptomatic, lying in bed now, BP 116/84, HR in 90s. Hel AM metoprolol. Thanks
[2019-06-29] MEDS: budesonide 0.5mg/2ml UD nebule IH SCH ×2 (09:18→21:05)
[2019-06-29 11:00] VITALS: BP 134/72
[2019-06-29] MEDS: ondansetron/PF 4mg/2ml inj IV PRN (11:42)
[2019-06-29 15:00] VITALS: BP 122/64
--- NOTE | 2019-06-29 18:39 | NUR ---
Problems reprioritized. Patient report given, questions answered & plan of care reviewed with Rancho HOUSE.
[2019-06-29 19:05] VITALS: BP 123/63
--- NOTE | 2019-06-29 19:24 | NUR ---
Patient in room PCU 3021. I have received report from LACY Sanabria and had the opportunity to ask questions and assume patient care. Patient awake for bedside report, on room air, saline locked and stable at this time. Will continue to monitor closely.
[2019-06-29] MEDS: lisinopril 20mg tablet PO SCH (20:53)
[2019-06-29] MEDS: Melatonin 3mg tablet PO PRN (21:45)
[2019-06-29 23:00] VITALS: BP 94/44
--- NOTE | 2019-06-29 23:49 | NUR ---
Patient refusing new IV placement. Current 20G PIV in right forearm remains patent. Will address with hospitalist.
--- NOTE | 2019-06-29 23:56 | NUR ---
Patient has not had any laboratory draws since 06/27, with only values of K and MAG WNL. Addendum: 06/29/19 at 2359 by Channing Madden RN Per Dr. Fernandez, day time hospitalist to address.
[2019-06-30 03:00] VITALS: BP 115/58
[2019-06-30] MEDS: ipratropium/albuterol 3ml nebule NEB SCH ×2 (03:09→08:20)
[2019-06-30 06:00] VITALS: BP 121/61
--- NOTE | 2019-06-30 06:13 | NUR ---
Patient in room PCU 3021. I have received report from Rancho HOUSE and had the opportunity to ask questions and assume patient care.
--- NOTE | 2019-06-30 06:21 | NUR ---
Problems reprioritized. Patient report given, questions answered & plan of care reviewed with LACY Sanabria.
[2019-06-30] MEDS: furosemide 40mg tablet PO SCH (07:17)
[2019-06-30] MEDS: clopidogrel 75mg tablet PO SCH (07:19)
[2019-06-30] MEDS: docusate sod 100mg capsule PO SCH (07:19)
[2019-06-30] MEDS: pantoprazole 40mg Tablet.DR PO SCH (07:19)
[2019-06-30] MEDS: aspirin 81mg tablet.DR PO SCH (07:20)
[2019-06-30] MEDS: atorvastatin 20mg tablet PO SCH (07:20)
[2019-06-30] MEDS: metoprolol succinate 25mg (24-HOUR) SR. Tablet PO SCH (07:20)
[2019-06-30] MEDS: potassium Cl 20 mEq SR tablet PO SCH (07:20)
[2019-06-30] MEDS: citalopram 20mg tablet PO SCH (07:20)
[2019-06-30] MEDS: K and/or MAG REPLACEMENT MC SCH ×2 (07:25→07:26)
[2019-06-30] MEDS: budesonide 0.5mg/2ml UD nebule IH SCH (08:20)
[2019-06-30 08:33] VITALS: BP_SYST 121; BP_SYST 123; BP_SYST 83; BP_DIAS 56; BP_DIAS 60; BP_DIAS 63
--- NOTE | 2019-06-30 09:02 | NUR ---
Problems reprioritized. Patient report given, questions answered & plan of care reviewed with Dolly HOUSE.
--- NOTE | 2019-06-30 09:12 | NUR ---
Patient in room PCU 3021. I have received report from LACY Sanabria and had the opportunity to ask questions and assume patient care.
[2019-06-30] MEDS ORDERED: METO-395 PO (10:43)
[2019-06-30] MEDS ORDERED: MIDO2.5T14 PO (10:43)
--- NOTE | 2019-06-30 11:45 | NUR ---
Patient is stable and ready for discharge,All discharge instructions reviewed with patient and all questions answered. [facility]'s home meds retrieved from pharmacy and returned to patient. PIV discontinued, cannula intact. ui software developer disconnected. Belongings collected and sent with patient. Cab called to take patient to home. Patient wheelchaired down to lobby by patient child care aide.
== END 2019-06-30 11:50 | disposition home health service (06) | DRG 280 ==
LOC: ER 11:59 → ED HOLD 13:46 → PCU 3S 14:47
PROVIDERS: ADMIT Internal Medicine; ATTEND Family Medicine
DX: I13.0 Hypertensive heart and chronic kidney disease with heart failure and stage 1 through stage 4 chronic kidney disease, or unspecified chronic kidney disease (principal); I21.A1 Myocardial infarction type 2; I50.33 Acute on chronic diastolic (congestive) heart failure; J96.00 Acute respiratory failure, unspecified whether with hypoxia or hypercapnia; I47.1 Supraventricular tachycardia; I73.9 Peripheral vascular disease, unspecified; E78.5 Hyperlipidemia, unspecified; F32.9 Major depressive disorder, single episode, unspecified; D64.9 Anemia, unspecified; I25.10 Atherosclerotic heart disease of native coronary artery without angina pectoris; I95.1 Orthostatic hypotension; J44.9 Chronic obstructive pulmonary disease, unspecified; K21.9 Gastro-esophageal reflux disease without esophagitis; N18.9 Chronic kidney disease, unspecified; Z95.1 Presence of aortocoronary bypass graft; Z79.899 Other long term (current) drug therapy
CPT/HCPCS: 36415; 71045; 71046; 80048; 80053; 83735; 83880; 84132; 84484; 85025; 85610; 85730; 87081; 93005; 93306; 94640; 94760; 97110; 97112; 97116; 97162; 97530; 99291; G0378; J1644; J1940; J2405; J7626; Q2037

== ENCOUNTER 2020-07-04 23:25 | Emergency (ER) | payer OTHER, MEDICARE ==
[~2020-07-04] VITALS: Ht 193 cm; Wt 88.6 kg
[~2020-07-04 23:25] MED LIST changes: +ASPI-1071 PO; -ASPI-611 PO; -BUDE10.2 PO; +CARV6.253 PO; +CITA40TA22 PO; -IPRA4AER PO; -LISI-600 PO; +LISI10TA27 PO; -METO-411 PO; +PENT400T17 PO; +POTA-82 PO; -POTA10TA15 PO
--- NOTE | 2020-07-04 23:59 | NUR ---
RT with patient
[2020-07-05] MEDS ORDERED: albuterol 2.5 MG/3 ML nebule NEB ONE (00:05)
[2020-07-05] MEDS ORDERED: ipratropium/albuterol 3ml nebule NEB STA (00:06)
[2020-07-05 00:07] LABS: BASOPHILS # (AUTO) 0.1 X10'3 (0-0.2); BASOPHILS % (AUTO) 1.1 % (0-1); EOSINOPHILS # (AUTO) 0.3 X10'3 (0-0.9); EOSINOPHILS % (AUTO) 3.7 % (0-6); HEMATOCRIT 34.6 % (42.0-52.0); HEMOGLOBIN 11.4 g/dl (14.0-17.9); LYMPHOCYTES # (AUTO) 1.5 X10'3 (1.1-4.8); LYMPHOCYTES % (AUTO) 17.4 % (21-51); MEAN CORPUSCULAR HEMOGLOBIN 29.2 PG (27.0-31.0); MEAN CORPUSCULAR HGB CONC 32.9 g/dL (33.0-36.5); MEAN CORPUSCULAR VOLUME 88.8 FL (78-98); MEAN PLATELET VOLUME 7.2 FL (7.4-10.4); MONOCYTES # (AUTO) 0.6 X10'3 (0-0.9); MONOCYTES % (AUTO) 6.7 % (2-12); NEUTROPHILS % (AUTO) 71.1 % (42-75); PLATELET COUNT 267 X10'3 (140-440); RED BLOOD COUNT 3.89 X10'6 (4.70-6.10); RED CELL DISTRIBUTION WIDTH 16.4 % (11.5-14.5); WHITE BLOOD COUNT 8.4 X10'3 (4.5-11.0)
[2020-07-05 00:14] LABS: ALANINE AMINOTRANSFERASE 10 U/L (12-78); ALBUMIN 3.2 G/DL (3.4-5.0); ALBUMIN/GLOBULIN RATIO 0.7 (1.1-1.5); ALKALINE PHOSPHATASE 127 IU/L (46-116); ANION GAP 3 (8-16); ASPARTATE AMINO TRANSFERASE 13 U/L (10-37); BILIRUBIN,TOTAL 0.5 MG/DL (0.1-1.0); BLOOD UREA NITROGEN 19 MG/DL (7-18); BUN/CREATININE RATIO 13.6 (5.4-32.0); CALCIUM 9.9 MG/DL (8.5-10.1); CHLORIDE 100 MMOL/L (99-107); GLUCOSE 137 MG/DL (70-104); POTASSIUM 4.3 MMOL/L (3.5-5.1); SODIUM 140 MMOL/L (135-145); TOTAL CARBON DIOXIDE 36.8 MMOL/L (24-32); TOTAL PROTEIN 7.7 G/DL (6.4-8.2); eGFR 49 ML/MIN
--- NOTE | 2020-07-05 00:23 | NUR ---
relieving RN for break, pt is resting quietly on gurney, said he feels better after receiving breathing tx, sample of sputum sent to lab
[2020-07-05 01:11] VITALS: BP 137/88
[2020-07-05] MEDS ORDERED: ipratropium/albuterol 3ml nebule NEB SCH (03:00)
== END 2020-07-05 01:27 | disposition home or self-care (01) ==
LOC: ER 23:26
DX: J44.1 Chronic obstructive pulmonary disease with (acute) exacerbation (principal); I25.10 Atherosclerotic heart disease of native coronary artery without angina pectoris; I11.0 Hypertensive heart disease with heart failure; I50.9 Heart failure, unspecified; E78.00 Pure hypercholesterolemia, unspecified; Z95.1 Presence of aortocoronary bypass graft; Z79.82 Long term (current) use of aspirin; Z79.899 Other long term (current) drug therapy
CPT/HCPCS: 36415; 71045; 80053; 83880; 84484; 85025; 93005; 94640; 94760; 99285

== ENCOUNTER 2021-06-28 11:21 | Day surgery (SDC) | payer MEDICARE, OTHER ==
[~2021-06-28] VITALS: Ht 193 cm; Wt 74.2 kg
[2021-06-28] VITALS (14 sets, daily range): BP systolic 126–164; BP diastolic 50–93
[2021-06-28] MEDS ORDERED: CLOP75TA34 PO (12:10)
[2021-06-28] MEDS ORDERED: OXYB15TA19 PO (12:10)
[2021-06-28] MEDS ORDERED: TIOT18CA3 (12:10)
[2021-06-28] MEDS ORDERED: ROSU40TA22 PO (12:10)
[2021-06-28] MEDS ORDERED: SALM50DI2 (12:10)
[2021-06-28] MEDS ORDERED: MIDO5TAB4 PO (12:10)
[2021-06-28] MEDS ORDERED: POTA-208 PO (12:10)
[2021-06-28] MEDS ORDERED: BUME1TAB8 PO (12:10)
[2021-06-28] MEDS ORDERED: METO-395 PO (12:10)
[2021-06-28] MEDS ORDERED: MONT-40 PO (12:10)
[2021-06-28] MEDS ORDERED: APIX5TAB3 PO (12:10)
[2021-06-28] MEDS ORDERED: AMIO200T61 PO (12:10)
[2021-06-28] MEDS ORDERED: NITR0.4T51 (12:14)
[2021-06-28] MEDS ORDERED: MELA3TAB39 PO (12:16)
[2021-06-28] MEDS ORDERED: OMEP20CA16 PO (12:16)
[2021-06-28] MEDS ORDERED: FERR324T23 PO (12:20)
[2021-06-28] MEDS ORDERED: MULT-1085 PO (12:20)
[2021-06-28] MEDS ORDERED: BISA10SU60 RC (12:20)
[2021-06-28] MEDS ORDERED: DOCU100C40 PO (12:20)
[2021-06-28] MEDS ORDERED: MAGN400O6 PO (12:35)
[2021-06-28] MEDS ORDERED: ROSU40TA PO (12:35)
[2021-06-28] MEDS ORDERED: CYAN100T39 (12:35)
[2021-06-28] MEDS ORDERED: SIME80TA16 PO (12:35)
[2021-06-28] MEDS ORDERED: ONDA4TAB12 PO (12:35)
[2021-06-28] MEDS ORDERED: NA P133E4 RC (12:35)
[2021-06-28] MEDS ORDERED: [UNRECOGNIZED DRUG - CODE] PO (12:35)
[2021-06-28] MEDS ORDERED: ACET-1013 PO (12:35)
[2021-06-28] MEDS ORDERED: POLY17PO10 PO (12:35)
[2021-06-28] MEDS ORDERED: DRON10CA8 PO (12:35)
--- NOTE | 2021-06-28 13:00 | NUR ---
Phone call made to Nena Bryson to find out last pick and shovel man time to return pt to [facility]. Their response was [phone]. Case management contacted to have back-up plan in place if DC time is later than 1829.
[2021-06-28 13:16] LABS: BASOPHILS % (AUTO) 0.9 % (0-1); EOSINOPHILS # (AUTO) 0.1 X10'3 (0-0.9); EOSINOPHILS % (AUTO) 2.2 % (0-6); HEMATOCRIT 34.8 % (42.0-52.0); HEMOGLOBIN 11.4 g/dl (14.0-17.9); LYMPHOCYTES # (AUTO) 0.8 X10'3 (1.1-4.8); LYMPHOCYTES % (AUTO) 14.3 % (21-51); MEAN CORPUSCULAR HEMOGLOBIN 28.7 PG (27.0-31.0); MEAN CORPUSCULAR HGB CONC 32.8 g/dL (33.0-36.5); MEAN CORPUSCULAR VOLUME 87.4 FL (78-98); MEAN PLATELET VOLUME 7.2 FL (7.4-10.4); MONOCYTES # (AUTO) 0.5 X10'3 (0-0.9); MONOCYTES % (AUTO) 9.5 % (2-12); NEUTROPHILS # (AUTO) 4.1 X10'3 (1.8-7.7); NEUTROPHILS % (AUTO) 73.1 % (42-75); PLATELET COUNT 250 X10'3 (140-440); RED BLOOD COUNT 3.99 X10'6 (4.70-6.10); RED CELL DISTRIBUTION WIDTH 17.9 % (11.5-14.5); WHITE BLOOD COUNT 5.6 X10'3 (4.5-11.0)
[2021-06-28] MEDS ORDERED: nitroGLYCERIN-Tridil 50MG/D5W 250 ML IV ONE (13:17)
[2021-06-28] MEDS ORDERED: heparin 1,000unit/ml 10ml vial 10 ML ONE (13:18)
[2021-06-28] MEDS ORDERED: iohexol 350MG/ML 100ml bottle IV ONE ×2 (13:18→15:29)
[2021-06-28] MEDS ORDERED: midazolam 1 mg/ML 2ml injection ONE (13:18)
[2021-06-28] MEDS ORDERED: verapamil 2.5 mg/ml inj IV ONE (13:18)
[2021-06-28] MEDS ORDERED: LIDOCAINE 1% w/preservative (10 MG/ML) inj. 10mL VIAL ONE (13:18)
[2021-06-28] MEDS ORDERED: fentaNYL/PF 50MCG/1 ML 2ML syringe ONE (13:18)
[2021-06-28 13:31] LABS: APTT 31 SECONDS (22-32)
--- NOTE | 2021-06-28 13:34 | NUR ---
Sidra for case management made back-up plan for [facility] non-emergent Transport to take pt back to [place] up til 2099. Will update
[2021-06-28 13:35] LABS: ALBUMIN 3.1 G/DL (3.4-5.0); ANION GAP 6 (8-16); BLOOD UREA NITROGEN 22 MG/DL (7-18); BUN/CREATININE RATIO 17.3 (5.4-32.0); CALCIUM 8.8 MG/DL (8.5-10.1); CHLORIDE 99 MMOL/L (99-107); CREATININE 1.27 MG/DL (0.60-1.10); GLUCOSE 95 MG/DL (70-104); POTASSIUM 4.3 MMOL/L (3.5-5.1); SODIUM 134 MMOL/L (135-145); TOTAL CARBON DIOXIDE 29.4 MMOL/L (24-32); eGFR 55 ML/MIN
[2021-06-28] MEDS ORDERED: CLOP75TA15 PO (13:40)
[2021-06-28] MEDS ORDERED: iohexol 350 MG/ML 50ML vial IV ONE (15:16)
--- NOTE | 2021-06-28 16:00 | NUR ---
COTTON CLASSER GERARDO ARRANGED TRANSPORT FOR PT BACK TO [facility] VIA [facility] AT 1930, VIA GURNEY. [facility] NOTIFIED GERARDO THAT THEY ARE UNABLE TO TAKE PT WHEELCHAIR IN AMBULANCE. GERARDO CALLED [facility] TO ARRANGE FOR THEM TO COME COOL ROOFING INSTALLER THE WC IN THE AM.
--- NOTE | 2021-06-28 16:20 | NUR ---
PHONED REPORT TO FATAMTA AT [facility] [phone], UPDATED WITH CURRENT LAB VALUES, RESULTS OF HEART CATH AND RIGHT GROIN SITE STABLE, DRESSING CD&I, AND PRECAUTIONS TO WATCH OUT FOR POST HEART CATH. WRITTEN DC INSTRUCTIONS WILL BE SENT WITH PT IN ADDITION.
--- NOTE | 2021-06-28 19:00 | NUR ---
pT SITTING UP IN BED, RIGHT GROIN SITE STABLE, NO BLEEDING, BRUISING OR HEMATOMA NOTED. VSS, DENIES PAIN.
--- NOTE | 2021-06-28 19:15 | NUR ---
PT ABLE TO HELP RN GET DRESSED IN BED, BY BENDING LEFT LEG TO LIFT BUTTOX TO PULL PANTS ON AND SITTING UP IN BED TO PUT SHIRT ON. RIGHT GROIN SITE REMAINS STABLE DURING MOVEMENTS. PIV DC CATH INTACT. AWAITING [facility] TRANSPORT TO RETURN PT TO [facility].
--- NOTE | 2021-06-28 20:01 | NUR ---
PT LEFT TO [facility] VIA [facility]. ATTEMPTED TO CALL REPORT TO FATMATA HOUSE AT [facility], NO ANSWER. PT SENT WITH WRITTEN DC INSTRUCTIONS.
== END 2021-06-28 20:03 ==
LOC: SSTAY O 11:21
PROVIDERS: ATTEND Internal Medicine Interventional Cardiology
DX: R94.39 Abnormal result of other cardiovascular function study (principal); I25.810 Atherosclerosis of coronary artery bypass graft(s) without angina pectoris; E11.22 Type 2 diabetes mellitus with diabetic chronic kidney disease; I13.0 Hypertensive heart and chronic kidney disease with heart failure and stage 1 through stage 4 chronic kidney disease, or unspecified chronic kidney disease; N18.9 Chronic kidney disease, unspecified; I50.9 Heart failure, unspecified; J44.9 Chronic obstructive pulmonary disease, unspecified; I48.91 Unspecified atrial fibrillation; E78.5 Hyperlipidemia, unspecified; Z99.81 Dependence on supplemental oxygen; Z79.899 Other long term (current) drug therapy; Z79.01 Long term (current) use of anticoagulants; Z87.891 Personal history of nicotine dependence
CPT/HCPCS: 36415; 80048; 85025; 85610; 85730; 93005; 93459; 93567; 99152; 99153; C1769; C1894; J1644; J2250; J3010; J3490; Q9967; A4620; A5120